=== PATIENT | female | born 1970 | race Caucasian/White ===

== ENCOUNTER 2018-06-14 01:27 | Inpatient (IN) | payer OTHER ==
[2018-06-14] MEDS ORDERED: SODIUM CHLORIDE 0.9% 1,000 ML IV STA (01:52)
[2018-06-14] MEDS ORDERED: LORazepam 2 MG/ML INJ IV STA ×2 (02:07→04:52)
[2018-06-14] MEDS ORDERED: SODIUM CHLORIDE 0.9% 1,000 ML IV ONE (02:07)
[2018-06-14 02:29] LABS: ALT 102 U/L (9-52); AST 90 U/L (14-36); Acetaminophen <10.0 ug/mL; Albumin 4.3 g/dL (3.5-5.0); Alkaline Phosphatase 51 U/L (38-126); Anion Gap 13 mmol/L; Blood Urea Nitrogen 9 mg/dL (7-17); Calcium 9.8 mg/dL (8.4-10.2); Carbon Dioxide 21 mmol/L (22-30); Chloride 102 mmol/L (98-107); Glucose 83 mg/dL (74-99); Potassium 3.8 mmol/L (3.5-5.1); Salicylate <1.0 mg/dL; Sodium 136 mmol/L (137-145); Total Bilirubin 0.4 mg/dL (0.2-1.3); Total Protein 7.4 g/dL (6.3-8.2)
--- NOTE | 2018-06-14 02:29 | ED ---
Overdose HPI - General Chief Complaint: Overdose Stated Complaint: Suicidal Time Seen by Provider: 06/14/18 01:40 Source: patient Mode of arrival: EMS Limitations: altered mental status - History of Present Illness Initial Comments: Patient's 48-year-old woman brought to be evaluated for reported overdose. She is not able to give history due to acute delirium. MD Complaint: intentional overdose -: unknown - Related Data Home Medications Medication Instructions Recorded Confirmed DULoxetine HCL [Cymbalta] 60 mg PO BID 06/14/18 06/14/18 Hydrochlorothiazide 25 mg PO DAILY 06/14/18 06/14/18 Allergies Allergy/AdvReac Type Severity Reaction Status Date / Time No Known Allergies Allergy Verified 06/14/18 01:40 Review of Systems ROS Statement: Those systems with pertinent positive or pertinent negative responses have been documented in the HPI. ROS Other: All systems not noted in ROS Statement are negative. Limitations: ROS unobtainable due to patients medical condition (Acute delirium) Past Medical History Past Medical History: No Reported History History of Any Multi-Drug Resistant Organisms: None Reported Past Surgical History: No Surgical Hx Reported Past Psychological History: No Psychological Hx Reported Smoking Status: Current every day smoker Past Alcohol Use History: Occasional - Past Family History Mother Additional Family Medical History / Comment(s): Mother is obese Father Family Medical History: COPD Additional Family Medical History / Comment(s): Father of alcoholism. General Exam Limitations: altered mental status General appearance: alert, appears intoxicated Head exam: Present: atraumatic, normocephalic Eye exam: Present: EOMI. Absent: scleral icterus, conjunctival injection, periorbital swelling, periorbital tenderness Pupils: Present: miosis ENT exam: Present: mucous membranes dry Neck exam: Present: normal inspection, full ROM. Absent: tenderness, meningismus Respiratory exam: Present: normal lung sounds bilaterally. Absent: respiratory distress, wheezes, rales, rhonchi, stridor Cardiovascular Exam: Present: normal rhythm, tachycardia (Rate approximately 132 on exam), normal heart sounds. Absent: systolic murmur, diastolic murmur, rubs, gallop GI/Abdominal exam: Present: soft, hypoactive bowel sounds. Absent: distended, tenderness, guarding, rebound, mass, pulsatile mass, hernia Extremities exam: Present: normal inspection, normal capillary refill. Absent: pedal edema, calf tenderness Back exam: Present: normal inspection. Absent: CVA tenderness (R), CVA tenderness (L) Neurological exam: Present: altered. Absent: motor sensory deficit Skin exam: Present: warm, dry, intact, erythema. Absent: rash, cyanosis, diaphoretic, urticaria, vesicles, petechiae, pallor, mottled, abrasion Course Vital Signs 06/14/18 06/14/18 06/14/18 01:34 01:35 02:20 Temperature 99 F Pulse Rate 124 H 155 H Respiratory 24 26 H Rate Blood Pressure 120/109 119/70 O2 Sat by Pulse 95 96 95 Oximetry 06/14/18 06/14/18 06/14/18 02:40 03:10 03:30 Temperature Pulse Rate 142 H 112 H 106 H Respiratory 25 H 17 17 Rate Blood Pressure 140/92 81/55 81/55 O2 Sat by Pulse 95 Oximetry 06/14/18 06/14/18 06/14/18 04:00 04:30 05:00 Temperature Pulse Rate 101 H 130 H 112 H Respiratory 17 27 H 14 Rate Blood Pressure 91/50 79/46 111/77 O2 Sat by Pulse 94 L Oximetry 06/14/18 06/14/18 06/14/18 05:10 05:20 05:30 Temperature Pulse Rate 105 H 101 H 101 H Respiratory 17 16 16 Rate Blood Pressure 114/80 114/80 114/80 O2 Sat by Pulse Oximetry 06/14/18 06/14/18 06/14/18 05:40 05:50 06:00 Temperature Pulse Rate 102 H 99 97 Respiratory 16 15 16 Rate Blood Pressure 92/51 92/51 92/51 O2 Sat by Pulse Oximetry 06/14/18 06/14/18 06/14/18 06:10 06:20 06:30 Temperature Pulse Rate 96 95 93 Respiratory 16 15 16 Rate Blood Pressure 93/62 93/62 93/62 O2 Sat by Pulse Oximetry 06/14/18 06/14/18 06/14/18 06:40 06:50 06:51 Temperature Pulse Rate 94 96 95 Respiratory 15 16 16 Rate Blood Pressure 91/63 91/63 91/63 O2 Sat by Pulse 96 96 Oximetry 06/14/18 06/14/18 06/14/18 07:00 07:10 07:20 Temperature Pulse Rate 95 96 92 Respiratory 16 17 15 Rate Blood Pressure 91/63 108/70 108/70 O2 Sat by Pulse 96 97 97 Oximetry 06/14/18 06/14/18 06/14/18 07:30 07:40 07:50 Temperature Pulse Rate 105 H 94 91 Respiratory 22 17 14 Rate Blood Pressure 108/70 106/72 106/72 O2 Sat by Pulse 98 96 96 Oximetry 06/14/18 06/14/18 06/14/18 08:00 08:10 08:15 Temperature Pulse Rate 94 92 92 Respiratory 18 16 16 Rate Blood Pressure 106/72 100/74 100/74 O2 Sat by Pulse 97 96 96 Oximetry Medical Decision Making - Lab Data Result diagrams: 06/15/18 05:54 06/15/18 05:54 Lab Results 06/14/18 06/14/18 06/14/18 Range/Units 02:00 02:00 05:10 WBC 10.2 (3.8-10.6) k/uL RBC 4.77 (3.80-5.40) m/uL Hgb 14.0 (11.4-16.0) gm/dL Hct 42.9 (34.0-46.0) % MCV 90.0 (80.0-100.0) fL MCH 29.3 (25.0-35.0) pg MCHC 32.6 (31.0-37.0) g/dL RDW 12.8 (11.5-15.5) % Plt Count 190 (150-450) k/uL Neutrophils % 52 % Lymphocytes % 38 % Monocytes % 4 % Eosinophils % 4 % Basophils % 0 % Neutrophils # 5.4 (1.3-7.7) k/uL Lymphocytes # 3.8 (1.0-4.8) k/uL Monocytes # 0.4 (0-1.0) k/uL Eosinophils # 0.4 (0-0.7) k/uL Basophils # 0.0 (0-0.2) k/uL Sodium 136 L (137-145) mmol/L Potassium 3.8 (3.5-5.1) mmol/L Chloride 102 (98-107) mmol/L Carbon Dioxide 21 L (22-30) mmol/L Anion Gap 13 mmol/L BUN 9 (7-17) mg/dL Creatinine 0.70 (0.52-1.04) mg/dL Est GFR (CKD-EPI)AfAm >90 (>60 ml/min/1.73 sqM) Est GFR (CKD-EPI)NonAf >90 (>60 ml/min/1.73 sqM) Glucose 83 (74-99) mg/dL Calcium 9.8 (8.4-10.2) mg/dL Total Bilirubin 0.4 (0.2-1.3) mg/dL AST 90 H (14-36) U/L ALT 102 H (9-52) U/L Alkaline Phosphatase 51 (38-126) U/L Total Protein 7.4 (6.3-8.2) g/dL Albumin 4.3 (3.5-5.0) g/dL Urine Color Urine Appearance (Clear) Urine pH (5.0-8.0) Ur Specific [place] (1.001-1.035) Urine Protein (Negative) Urine Glucose (UA) (Negative) Urine Ketones (Negative) Urine Blood (Negative) Urine Nitrite (Negative) Urine Bilirubin (Negative) Urine Urobilinogen (<2.0) mg/dL Ur Leukocyte Esterase (Negative) Urine HCG, Qual (Not Detectd) Salicylates <1.0 mg/dL Urine Opiates Screen Not Detected (NotDetected) Ur Oxycodone Screen Not Detected (NotDetected) Urine Methadone Screen Not Detected (NotDetected) Ur Propoxyphene Screen Not Detected (NotDetected) Acetaminophen <10.0 ug/mL Ur Barbiturates Screen Not Detected (NotDetected) U Tricyclic Antidepress Not Detected (NotDetected) Ur Phencyclidine Scrn Not Detected (NotDetected) Ur Amphetamines Screen Not Detected (NotDetected) U Methamphetamines Scrn Not Detected (NotDetected) U Benzodiazepines Scrn Detected H (NotDetected) Urine Cocaine Screen Not Detected (NotDetected) U Marijuana (THC) Screen Not Detected (NotDetected) Serum Alcohol 196 mg/dL 06/14/18 06/14/18 Range/Units 05:10 05:10 WBC (3.8-10.6) k/uL RBC (3.80-5.40) m/uL Hgb (11.4-16.0) gm/dL Hct (34.0-46.0) % MCV (80.0-100.0) fL MCH (25.0-35.0) pg MCHC (31.0-37.0) g/dL RDW (11.5-15.5) % Plt Count (150-450) k/uL Neutrophils % % Lymphocytes % % Monocytes % % Eosinophils % % Basophils % % Neutrophils # (1.3-7.7) k/uL Lymphocytes # (1.0-4.8) k/uL Monocytes # (0-1.0) k/uL Eosinophils # (0-0.7) k/uL Basophils # (0-0.2) k/uL Sodium (137-145) mmol/L Potassium (3.5-5.1) mmol/L Chloride (98-107) mmol/L Carbon Dioxide (22-30) mmol/L Anion Gap mmol/L BUN (7-17) mg/dL Creatinine (0.52-1.04) mg/dL Est GFR (CKD-EPI)AfAm (>60 ml/min/1.73 sqM) Est GFR (CKD-EPI)NonAf (>60 ml/min/1.73 sqM) Glucose (74-99) mg/dL Calcium (8.4-10.2) mg/dL Total Bilirubin (0.2-1.3) mg/dL AST (14-36) U/L ALT (9-52) U/L Alkaline Phosphatase (38-126) U/L Total Protein (6.3-8.2) g/dL Albumin (3.5-5.0) g/dL Urine Color Light Yellow Urine Appearance Clear (Clear) Urine pH 6.0 (5.0-8.0) Ur Specific [place] 1.005 (1.001-1.035) Urine Protein Negative (Negative) Urine Glucose (UA) Negative (Negative) Urine Ketones Negative (Negative) Urine Blood Negative (Negative) Urine Nitrite Negative (Negative) Urine Bilirubin Negative (Negative) Urine Urobilinogen <2.0 (<2.0) mg/dL Ur Leukocyte Esterase Negative (Negative) Urine HCG, Qual Not Detected (Not Detectd) Salicylates mg/dL Urine Opiates Screen (NotDetected) Ur Oxycodone Screen (NotDetected) Urine Methadone Screen (NotDetected) Ur Propoxyphene Screen (NotDetected) Acetaminophen ug/mL Ur Barbiturates Screen (NotDetected) U Tricyclic Antidepress (NotDetected) Ur Phencyclidine Scrn (NotDetected) Ur Amphetamines Screen (NotDetected) U Methamphetamines Scrn (NotDetected) U Benzodiazepines Scrn (NotDetected) Urine Cocaine Screen (NotDetected) U Marijuana (THC) Screen (NotDetected) Serum Alcohol mg/dL Critical Care Time Critical Care Time: Yes (35 minutes) Disposition Clinical Impression: Drug overdose, intentional, Suicide attempt, Alcohol abuse Disposition: ADMITTED IP TO THIS [facility] Condition: Fair
[2018-06-14 02:31] LABS: Basophils % (A) 0 %; Eosinophils # (A) 0.4 k/uL (0-0.7); Eosinophils % (A) 4 %; HCT 42.9 % (34.0-46.0); Lymphocytes # (A) 3.8 k/uL (1.0-4.8); Lymphocytes % (A) 38 %; MCH 29.3 pg (25.0-35.0); MCHC 32.6 g/dL (31.0-37.0); Mean Platelet Volume 7.6; Monocytes # (A) 0.4 k/uL (0-1.0); Monocytes % (A) 4 %; Neutrophils # (A) 5.4 k/uL (1.3-7.7); Neutrophils % (A) 52 %; Platelet Count 190 k/uL (150-450); RBC 4.77 m/uL (3.80-5.40); RDW 12.8 % (11.5-15.5); WBC 10.2 k/uL (3.8-10.6)
[2018-06-14 02:42] LABS: Alcohol 196 mg/dL
[2018-06-14 06:15] LABS: Amphetamine Screen,Urine Not Detected (NotDetected); Barbiturate Screen,Urine Not Detected (NotDetected); Benzodiazepines Screen,Urine Detected (NotDetected); Cocaine Screen,Urine Not Detected (NotDetected); Methadone Screen, Urine Not Detected (NotDetected); Opiate Screen,Urine Not Detected (NotDetected); Oxycodone Screen, Urine Not Detected (NotDetected); Phencyclidine Screen,Urine Not Detected (NotDetected); Tricyclic Antidepressant,Urine Not Detected (NotDetected); Urn Cannabinoid Scrn Not Detected (NotDetected)
[2018-06-14] MEDS ORDERED: ACETAMINOPHEN TAB 325 MG TAB PO PRN (06:40)
[2018-06-14] MEDS ORDERED: NALOXONE 0.4 MG/ML 1 ML VIAL IV PRN (06:40)
[2018-06-14] MEDS ORDERED: LORazepam 2 MG/ML INJ IV PRN ×4 (06:40→07:49)
[2018-06-14] MEDS ORDERED: SODIUM CHLORIDE 0.9% 1,000 ML IV SCH (06:45)
[2018-06-14 06:54] LABS: Appearance,Urine Clear (Clear); Bilirubin,Urine Negative (Negative); Blood,Urine Negative (Negative); Color,Urine Light Yellow; Glucose,Urine (UA) Negative (Negative); Ketones,Urine Negative (Negative); Leukocyte Esterase,Urine Negative (Negative); Nitrite,Urine Negative (Negative); Protein,Urine Negative (Negative); Specific Gravity,Urine 1.005 (1.001-1.035); Urobilinogen,Urine <2.0 mg/dL (<2.0)
--- NOTE | 2018-06-14 07:28 | P.HPIM ---
History of Present Illness H&P Date: 06/14/18 Chief Complaint: Drug overdose Patient is a 48-year-old female with no significant past medical history who history cannot be obtained from patient's somnolent at the time of my history taking. Per RN who was admitted bedside patient was brought via EMS on was awake and alert at the time of arrival to the emergency room. However she was agitated and required Ativan and then became sleepy on hypotensive. Upon arrival patient was noted to be tachycardic with heart rates in the 140s but she was normotensive at that time. Patient's sister later called the emergency room and stated that her sister stated she wanted to commit suicide this is believed to be a suicide attempt. Patient received IV hydration Ativan was stabilized in the emergency room and then admitted for further workup and management Review of Systems Unable to obtain ROS unobtainable: due to mental status Past Medical History Past Medical History: No Reported History History of Any Multi-Drug Resistant Organisms: None Reported Past Surgical History: No Surgical Hx Reported Past Psychological History: No Psychological Hx Reported Smoking Status: Current every day smoker Past Alcohol Use History: Occasional Medications and Allergies Allergies Allergy/AdvReac Type Severity Reaction Status Date / Time No Known Allergies Allergy Verified 06/14/18 01:40 Physical Exam Vitals: Vital Signs Temp Pulse Resp BP Pulse Ox 06/14/18 06:51 95 16 91/63 96 06/14/18 05:00 112 H 14 111/77 06/14/18 04:30 130 H 27 H 79/46 06/14/18 04:00 101 H 17 91/50 94 L 06/14/18 03:30 106 H 17 81/55 06/14/18 03:10 112 H 17 81/55 95 06/14/18 02:40 142 H 25 H 140/92 06/14/18 02:20 155 H 26 H 119/70 95 06/14/18 01:35 96 06/14/18 01:34 99 F 124 H 24 120/109 95 Intake and Output 06/13/18 06/14/18 06/14/18 22:59 06:59 14:59 Other: Weight 54.431 kg Sleepy not oriented response to sternal rub - EENT Eyes: PERRLA Ears: bilateral: normal - Respiratory Respiratory: bilateral: diminished - Cardiovascular Tachycardic - Gastrointestinal General gastrointestinal: normal bowel sounds, soft - Integumentary Integumentary: flushed, normal turgor - Neurologic Muscles extremities symmetrically - Musculoskeletal Unable to assess - Psychiatric Not oriented Results CBC & Chem 7: 06/14/18 02:00 06/14/18 02:00 Labs: Abnormal Lab Results - Last 24 Hours (Table) 06/14/18 06/14/18 Range/Units 02:00 05:10 Sodium 136 L (137-145) mmol/L Carbon Dioxide 21 L (22-30) mmol/L AST 90 H (14-36) U/L ALT 102 H (9-52) U/L U Benzodiazepines Scrn Detected H (NotDetected) Comments: EKG reveals reviewed by me with sinus tachycardia and nonspecific ST changes Assessment and Plan (1) Drug overdose, intentional Narrative/Plan: Patient with overdose of multiple drugs including Benadryl possible alcohol is tachycardic on arrival we'll continue IV hydration and repeat EKG Current Visit: Yes Status: Acute Code(s): T50.902A - POISONING BY UNSP DRUG/ MEDS/BIOL SUBST, SELF-HARM, INIT SNOMED Code(s): 66487499 (2) Alcohol abuse Narrative/Plan: Please see well protocol and monitor for evidence of withdrawal Current Visit: Yes Status: Acute Code(s): F10.10 - ALCOHOL ABUSE, UNCOMPLICATED SNOMED Code(s): 03098727 (3) Transaminitis Narrative/Plan: Dishes, level was negative, this is likely secondary to her alcohol use versus 5 level we'll trend undetermined needs further workup Current Visit: Yes Status: Acute Code(s): R74.0 - NONSPEC ELEV OF LEVELS OF TRANSAMNS & LACTIC ACID DEHYDRGNSE SNOMED Code(s): 636715535 (4) Suicide attempt Narrative/Plan: Consult psychiatry to determine if needs inpatient management Current Visit: Yes Status: Acute Code(s): T14.91XA - SUICIDE ATTEMPT, INITIAL ENCOUNTER SNOMED Code(s): 92862936 Plan: Anticipated patient need graded next day she is focal
[2018-06-14] MEDS ORDERED: THIAMINE 100 MG/ML 2 ML VIAL IM STA (07:49)
[2018-06-14 08:07] LABS: Basophils % (A) 0 %; Eosinophils # (A) 0.2 k/uL (0-0.7); Eosinophils % (A) 2 %; HCT 39.3 % (34.0-46.0); Lymphocytes # (A) 1.5 k/uL (1.0-4.8); Lymphocytes % (A) 18 %; MCH 30.5 pg (25.0-35.0); MCHC 33.1 g/dL (31.0-37.0); MCV 91.9 fL (80.0-100.0); Mean Platelet Volume 7.8; Monocytes # (A) 0.3 k/uL (0-1.0); Monocytes % (A) 3 %; Neutrophils # (A) 6.3 k/uL (1.3-7.7); Neutrophils % (A) 75 %; Platelet Count 160 k/uL (150-450); RBC 4.28 m/uL (3.80-5.40); WBC 8.3 k/uL (3.8-10.6)
[2018-06-14 08:26] LABS: Anion Gap 11 mmol/L; Blood Urea Nitrogen 10 mg/dL (7-17); Calcium 8.4 mg/dL (8.4-10.2); Carbon Dioxide 18 mmol/L (22-30); Chloride 110 mmol/L (98-107); Glucose 81 mg/dL (74-99); Magnesium 1.4 mg/dL (1.6-2.3); Phosphorus 4.9 mg/dL (2.5-4.5); Potassium 3.6 mmol/L (3.5-5.1); Sodium 139 mmol/L (137-145)
[2018-06-14] MEDS ORDERED: Magnesium Replacement Protocol 1 EACH MISC MISCELLANE PRN (08:57)
[2018-06-14] MEDS: DEXTROSE 5%-0.45% NACL 1,000 ML IV SCH ×3 (09:20→22:45)
[2018-06-14] MEDS: MAGNESIUM SULFATE-D5W PMX 1 GM in DEXTROSE/WATER 1 100ML.BAG IVPB SCH ×3 (09:25→11:58)
--- NOTE | 2018-06-14 09:44 | P.PN ---
Subjective Progress Note Date: 06/14/18 Principal diagnosis: Suicidal ideation Patient was seen and examined this morning. She is awake and alert. She is only oriented to herself. She appeared confused and was not sure why she is in the hospital. She denies any suicidal thoughts. She denies that she took any extra Benadryl prior to coming to the hospital. She also told me that she was not drinking alcohol prior to this presentation. She appeared confused. Sitter at bedside. Objective - Vital Signs Vital signs: Vital Signs Temp 99 F 06/14/18 01:34 Pulse 89 06/14/18 09:01 Resp 18 06/14/18 09:01 BP 99/66 06/14/18 09:01 Pulse Ox 97 06/14/18 09:01 Intake & Output 06/13/18 06/14/18 06/14/18 18:59 06:59 18:59 Weight 54.431 kg - Exam General: The patient is awake and alert, in no distress Eye: there is normal conjunctiva bilaterally. Neck: The neck is supple, there is no JVD. Cardiovascular: Normal S1-S2, no S3-S4, no murmurs. Respiratory: Lungs clear to auscultation bilaterally Gastrointestinal: Abdomen is soft, nontender Musculoskeletal: There is no pedal edema. Neurological:. Speech is normal. Skin: Skin is warm and dry - Labs CBC & Chem 7: 06/14/18 07:26 06/14/18 07:26 Labs: Abnormal Lab Results - Last 24 Hours (Table) 06/14/18 06/14/18 06/14/18 Range/Units 02:00 05:10 07:26 Sodium 136 L (137-145) mmol/L Chloride 110 H (98-107) mmol/L Carbon Dioxide 21 L 18 L (22-30) mmol/L Phosphorus 4.9 H (2.5-4.5) mg/dL Magnesium 1.4 L (1.6-2.3) mg/dL AST 90 H (14-36) U/L ALT 102 H (9-52) U/L U Benzodiazepines Scrn Detected H (NotDetected) Assessment and Plan Assessment: 1. Reported Benadryl overdose, patient denies taking any extra Benadryl. Unfortunately it is not clear to me what treatment patient received in the emergency room as the ER physician's note is not informative at all. Patient appears stable right now. We will continue aggressive IV fluid hydration. I would put her on telemetry monitoring. 2. Alcohol intoxication 3. Major depressive disorder 4. Alcohol induced hepatitis 5. Electrolyte derangement and hypomagnesemia Today, I reviewed her medication list and lab work results. Continue aggressive IV fluid hydration. Vitamins and electrolytes replacement. Psychiatry consulted. Continue suicidal precaution. Sitter at bedside. Repeat Work ordered for the morning. Patient will eventually need inpatient psych admission when medically cleared.
[2018-06-14] MEDS: MULTIVITAMINS, THERA 1 EACH TAB PO SCH (11:58)
[2018-06-14 12:57] LABS: Hemoglobin A1C 5.6 % (4.0-6.0)
[2018-06-14 14:35] VITALS: BMI 18.8
[2018-06-14] MEDS: THIAMINE 100 MG TAB PO SCH (17:36)
[2018-06-15 06:36] LABS: Basophils % (A) 0 %; Eosinophils # (A) 0.3 k/uL (0-0.7); Eosinophils % (A) 5 %; HCT 37.5 % (34.0-46.0); HGB 12.6 gm/dL (11.4-16.0); Lymphocytes # (A) 1.7 k/uL (1.0-4.8); Lymphocytes % (A) 32 %; MCH 30.9 pg (25.0-35.0); MCHC 33.6 g/dL (31.0-37.0); Mean Platelet Volume 8.3; Monocytes # (A) 0.2 k/uL (0-1.0); Monocytes % (A) 4 %; Neutrophils # (A) 3.1 k/uL (1.3-7.7); Neutrophils % (A) 57 %; Platelet Count 137 k/uL (150-450); RBC 4.08 m/uL (3.80-5.40); RDW 12.9 % (11.5-15.5); WBC 5.4 k/uL (3.8-10.6)
[2018-06-15 06:48] LABS: Anion Gap 5 mmol/L; Blood Urea Nitrogen 5 mg/dL (7-17); Calcium 8.3 mg/dL (8.4-10.2); Carbon Dioxide 24 mmol/L (22-30); Chloride 110 mmol/L (98-107); Glucose 133 mg/dL (74-99); Magnesium 1.8 mg/dL (1.6-2.3); Phosphorus 3.2 mg/dL (2.5-4.5); Potassium 3.2 mmol/L (3.5-5.1); Sodium 139 mmol/L (137-145)
[2018-06-15] MEDS ORDERED: POTASSIUM CHLORIDE ER 20 MEQ TAB.ER PO STA ×2 (08:10→09:09)
[2018-06-15] MEDS: DEXTROSE 5%-0.45% NACL 1,000 ML IV SCH ×2 (09:15→12:16)
--- NOTE | 2018-06-15 10:10 | P.PN ---
Progress Note - Text Progress Note Date: 06/15/18 Patient seen and examined at bedside. Admits that she has been drinking again, increased stress and anxiety at home. Self medicating with alcohol. Took pills in an attempt to harm herself. Feeling overwhelmed and helpless. Medically stable for discharge. Awaiting psych evaluation. Formal discharge summary or note once assessed by psych.
[2018-06-15] MEDS ORDERED: NICOTINE 21MG/24HR PATCH TRANSDERM SCH (10:15)
[2018-06-15 11:43] VITALS: PULSE 84
--- NOTE | 2018-06-15 11:48 | P.CN ---
Psychiatric Consult - . Consult date: 06/15/18 Consult:: 06/14/18 13:25 overdose and suicidal Assessment and Plan Assessment: Patient is a 48-year-old female with no significant past medical history who history cannot be obtained from patient's somnolent at the time of my history taking. Per RN who was admitted bedside patient was brought via EMS on was awake and alert at the time of arrival to the emergency room. However she was agitated and required Ativan and then became sleepy on hypotensive. Upon arrival patient was noted to be tachycardic with heart rates in the 140s but she was normotensive at that time. Patient's sister later called the emergency room and stated that her sister stated she wanted to commit suicide this is believed to be a suicide attempt. She denies suicidal or homicidal ideation. Patient received IV hydration Ativan was stabilized in the emergency room and then admitted for further workup and management Past Medical History Past Medical History: No Reported History History of Any Multi-Drug Resistant Organisms: None Reported Past Surgical History: No Surgical Hx Reported Past Psychological History: No Psychological Hx Reported Smoking Status: Current every day smoker Past Alcohol Use History: Occasional Mental Status Examination - General Appearance: [well groomed, disheveled, casual, appears younger than stated age] Speech/Language: [spontaneous, rapid Attitude/Behavior: [cooperative Mood: [ depressed 3/10, anxious] Affect: [full range Orientation: [time, person, place situation] Thought Content: [wnl Risk Factors: [she is not suicidal (ideations, plan), and/or Homicidal ( ideations, plan), other] Perception: [wnl Thought Processes: [goal-oriented Concentration/Attention Span: [wnl] [Per observation and interview with the patient] Recent Memory: [wnl] 3 out of 3 in 3 minutes] Remote Memory: [wnl] [past events, as related history] Intelligence: [ average] [based on history, based on vocabulary, syntax, grammar , and content] Judgement: [good] [per patient's behavior/history of present illness] Insight: [good] [understanding severity of illness/history of present illness] Psychiatric diagnoses:alcohol use disorder-early recovery; MDD stable-recurrent Psychiatric recommendations:restart psych meds, dc sitter and able to be dischaarged when medically stable Thank you for the consult Gavin Venegas D.O. PhD attending psychiatrist Brionna Hodges (1) Drug overdose, intentional Current Visit: Yes Status: Acute Code(s): T50.902A - POISONING BY UNSP DRUG/ MEDS/BIOL SUBST, SELF-HARM, INIT SNOMED Code(s): 79039734 (2) Suicide attempt Current Visit: Yes Status: Acute Code(s): T14.91XA - SUICIDE ATTEMPT, INITIAL ENCOUNTER SNOMED Code(s): 98949408 Time with Patient: Less than 30
[2018-06-15] MEDS: MULTIVITAMINS, THERA 1 EACH TAB PO SCH (12:11)
[2018-06-15] MEDS: THIAMINE 100 MG TAB PO SCH ×2 (12:11→15:38)
[2018-06-15 16:03] VITALS: BP 106/53; RESP 18; TEMP 98.3
--- NOTE | 2018-06-15 19:15 | P.DS ---
Providers Date of admission: 06/14/18 06:42 Expected date of discharge: 06/15/18 Attending physician: Yara Michel MD Consults: 06/14/18 04:47 Consult Physician Routine Consulting Provider: Gavin Venegas Consult Reason/Comments: Overdose Do you want consulting provider notified?: Yes Primary care physician: Stated None Hospital Course: Discharge Diagnosis: Alcohol intoxication with overdose Suicidal ideation Major depressive disorder Alcohol-induced hepatitis Tobacco abuse Hypokalemia hypomagnesemia Hospital Course: Patient is a 48-year-old female with a history of alcohol abuse, anxiety, and tobacco abuse who presented to the ER as an overdose with altered mentation. In the ER she underwent an extensive evaluation. She is on have slightly elevated liver enzymes. In the ER she became agitated and then received Ativan and became sleepy and hypotensive. She was admitted for further evaluation of her altered mentation. She was admitted and placed in suicide precautions. She was seen by psychiatry who recommended the patient resuming her Cymbalta and being discharged home. They did not see a need for inpatient psych hospitalization. Her liver enzymes [place] did during her hospitalization. She did have some hypomagnesemia and hypokalemia that was aggressively replaced. She has been here and is living she typically from [facility]. She will will be going home with her AA sponsor she wants to maintain sobriety at this point in time. We recommended restarting her home hydrochlorothiazide and Cymbalta. She will follow up with her primary care provider in 1-2 days. She was seen by social work. We encouraged abstaining from alcohol and seeking psychiatric counseling for her anxiety so that she no longer self-medicating with alcohol. Patient seen and examined at bedside. No chest pain, shortness breath, nausea, vomiting, or diarrhea. Feeling very anxious. Worried about maintaining sobriety, getting kicked out of her apartment, and multiple other social stressors. We spent a significant amount of time bringing stranding solutions. She will be going home with her sponsor. I offered to have her meet with case management which she was interested in. Vital signs reviewed and stable. General: non toxic, no distress, appears at stated age Derm: warm, dry Head: atraumatic, normocephalic, symmetric Eyes: EOMI, no lid lag, anicteric sclera Mouth: no lip lesion, mucus membranes moist Cardiovascular: S1S2 reg, no murmur, positive posterior tibial pulse bilateral, Lungs: CTA bilateral, no rhonchi, no rales , no accessory muscle use Abdominal: soft, nontender to palpation, no guarding, no appreciable organomegaly Ext: no gross muscle atrophy, no edema, no contractures Neuro: CN II-XI grossly intact, no focal neuro deficits Psych: Alert, oriented, appropriate affect A total of 35 minutes of time were spent preparing this complex discharge summary . Patient Condition at Discharge: Fair Plan - Discharge Summary Discharge Rx Participant: No New Discharge Prescriptions: Continue Hydrochlorothiazide 25 mg PO DAILY DULoxetine HCL [Cymbalta] 60 mg PO BID Discharge Medication List DULoxetine HCL [Cymbalta] 60 mg PO BID 06/14/18 [History] Hydrochlorothiazide 25 mg PO DAILY 06/14/18 [History] Follow up Appointment(s)/Referral(s): None,Stated [Primary Care Provider] - 1-2 days (Please call to schedule an appointment with a primary care doctor) Activity/Diet/Wound Care/Special Instructions: Activity as tolerated Regular diet Attempt to abstain from alcohol. Resources given to you from [facility] worker Discharge Disposition: HOME SELF-CARE
== END 2018-06-15 17:57 | disposition home or self-care (01) | DRG 918 ==
LOC: EC 01:27 → 3SCARD 06:42
PROVIDERS: ADMIT Internal Medicine; ATTEND Internal Medicine
DX: T45.0X2A Poisoning by antiallergic and antiemetic drugs, intentional self-harm, initial encounter (principal); E83.42 Hypomagnesemia; E87.6 Hypokalemia; F10.129 Alcohol abuse with intoxication, unspecified; F17.200 Nicotine dependence, unspecified, uncomplicated; F32.9 Major depressive disorder, single episode, unspecified; F41.9 Anxiety disorder, unspecified; K70.10 Alcoholic hepatitis without ascites; T50.902A Poisoning by unspecified drugs, medicaments and biological substances, intentional self-harm, initial encounter; Z82.5 Family history of asthma and other chronic lower respiratory diseases
CPT/HCPCS: 36415; 80048; 80053; 80306; 80320; 81003; 81025; 82247; 83036; 83520; 83735; 84100; 84450; 84460; 85025; 93005; 96361; 96374; 99285

== ENCOUNTER 2018-11-11 18:30 | Emergency (ER) | payer OTHER ==
[2018-11-11] MEDS ORDERED: SODIUM CHLORIDE 0.9% 1,000 ML IV STA (18:56)
[2018-11-11] MEDS ORDERED: SODIUM CHLORIDE 0.9% 1,000 ML with MVI, ADULT NO.4 WITH VIT K 10 ML, THIAMINE 100 MG, F... IV ONE ×4 (18:56)
--- NOTE | 2018-11-11 19:21 | ED ---
General Adult HPI - General Source: patient Mode of arrival: ambulatory Limitations: no limitations <Geni Marinelli - Last Filed: 11/12/18 05:00> <Clarita Corona - Last Filed: 11/12/18 06:39> - General Chief complaint: Psychiatric Symptoms Stated complaint: Mental health,ETOH Time Seen by Provider: 11/11/18 18:38 - History of Present Illness Initial comments: 48-year-old female patient presents to the emergency department today with alcohol intoxication. Patient states that she has been on a drinking binge for the last 4 days. Patient states that she does have a history of alcohol abuse and had previously been sober for 5 months until 4 days ago. Patient states that generally when she begins to drink she is unable to stop. States that she often becomes suicidal and is concerned that this may happen. She denies an active suicidal plan. Patient states she feels sick and feels that she must k eep drinking to feel normal. She denies any specific physical concerns at this time. She denies any street drug use. Denies any homicidal ideation or hallucinations. Patient denies any recent rash, fever, chills, shortness breath, chest pain, abdominal pain, nausea, vomiting, diarrhea, constipation, back pain, numbness, tingling, dizziness, weakness, hematuria, dysuria, urinary urgency, urinary frequency, headache, visual changes, or any other complaints. Patient states that she has attempted suicide in the past, states she was on life support for this. (Geni Marinelli) - Related Data Home Medications Medication Instructions Recorded Confirmed DULoxetine HCL [Cymbalta] 60 mg PO BID 06/14/18 11/11/18 Hydrochlorothiazide 25 mg PO DAILY 06/14/18 11/11/18 Multivitamins, Thera [Multivitamin 1 tab PO DAILY 11/11/18 11/11/18 (formulary)] Allergies Allergy/AdvReac Type Severity Reaction Status Date / Time No Known Allergies Allergy Verified 11/11/18 18:43 Review of Systems ROS Other: All systems not noted in ROS Statement are negative. <Geni Marinelli - Last Filed: 11/12/18 05:00> ROS Other: All systems not noted in ROS Statement are negative. <Clarita Corona - Last Filed: 11/12/18 06:39> ROS Statement: Those systems with pertinent positive or pertinent negative responses have been documented in the HPI. Past Medical History Past Medical History: No Reported History Additional Past Medical History / Comment(s): Alcoholism, alcohol withdrawal with seizures/insomnia/loss of appetite, arthritis bilateral hips, kidney stones History of Any Multi-Drug Resistant Organisms: None Reported Past Surgical History: No Surgical Hx Reported Additional Past Surgical History / Comment(s): Lithotripsy, ESS, bilateral breast implants. Past Anesthesia/Blood Transfusion Reactions: No Reported Reaction Past Psychological History: Anxiety, Depression Smoking Status: Current every day smoker Past Alcohol Use History: Daily Past Drug Use History: None Reported - Past Family History Mother Additional Family Medical History / Comment(s): Mother is obese Father Family Medical History: COPD Additional Family Medical History / Comment(s): Father of alcoholism. <Geni Marinelli M - Last Filed: 11/12/18 05:00> General Exam Limitations: no limitations General appearance: alert, in no apparent distress, other (This is a well- developed, well-nourished adult female patient in no acute distress. Vital signs upon presentation are temperature 98.2F, pulse 107, respirations 20, blood pressure 125/55, pulse ox 96% on room air.) Eye exam: Present: normal appearance, PERRL, EOMI. Absent: scleral icterus, conjunctival injection, periorbital swelling ENT exam: Present: normal exam, normal oropharynx, mucous membranes moist Respiratory exam: Present: normal lung sounds bilaterally. Absent: respiratory distress, wheezes, rales, rhonchi, stridor Cardiovascular Exam: Present: regular rate, normal rhythm, normal heart sounds. Absent: systolic murmur, diastolic murmur, rubs, gallop, clicks GI/Abdominal exam: Present: soft, normal bowel sounds. Absent: distended, tenderness, guarding, rebound, rigid Neurological exam: Present: alert, oriented X3, CN II-XII intact Psychiatric exam: Present: normal affect, normal mood Skin exam: Present: warm, dry, intact, normal color. Absent: rash <Geni Marinelli M - Last Filed: 11/12/18 05:00> Course Vital Signs 11/11/18 11/11/18 11/11/18 18:35 20:05 22:00 Temperature 98.2 F 98.7 F Pulse Rate 107 H 104 H Respiratory 20 16 18 Rate Blood Pressure 125/55 105/65 O2 Sat by Pulse 96 98 Oximetry 11/12/18 05:13 Temperature Pulse Rate 88 Respiratory 18 Rate Blood Pressure 127/87 O2 Sat by Pulse 98 Oximetry Medical Decision Making - Lab Data Result diagrams: 11/11/18 19:48 11/11/18 19:48 <Geni Marinelli - Last Filed: 11/12/18 05:00> - Lab Data Result diagrams: 11/11/18 19:48 11/11/18 19:48 <Clarita Corona - Last Filed: 11/12/18 06:39> - Medical Decision Making 48-year-old female patient with history of chronic alcohol abuse presents to the emergency department today with suicidal ideation. Patient's alcohol level was 276 upon arrival. Patient will be sober at 0545 and she will then be evaluated by emergency psychiatric services. Care is handed over to my attending Dr. Corona at 0500. (Geni Marinelli) - Lab Data Lab Results 11/11/18 11/11/18 11/11/18 Range/Units 19:16 19:16 19:48 WBC 13.4 H (3.8-10.6) k/uL RBC 5.01 (3.80-5.40) m/uL Hgb 14.8 (11.4-16.0) gm/dL Hct 42.6 (34.0-46.0) % MCV 84.9 (80.0-100.0) fL MCH 29.6 (25.0-35.0) pg MCHC 34.8 (31.0-37.0) g/dL RDW 13.5 (11.5-15.5) % Plt Count 325 (150-450) k/uL Neutrophils % 68 % Lymphocytes % 25 % Monocytes % 4 % Eosinophils % 1 % Basophils % 1 % Neutrophils # 9.1 H (1.3-7.7) k/uL Lymphocytes # 3.3 (1.0-4.8) k/uL Monocytes # 0.6 (0-1.0) k/uL Eosinophils # 0.2 (0-0.7) k/uL Basophils # 0.1 (0-0.2) k/uL Sodium (137-145) mmol/L Potassium (3.5-5.1) mmol/L Chloride (98-107) mmol/L Carbon Dioxide (22-30) mmol/L Anion Gap mmol/L BUN (7-17) mg/dL Creatinine (0.52-1.04) mg/dL Est GFR (CKD-EPI)AfAm (>60 ml/min/1.73 sqM) Est GFR (CKD-EPI)NonAf (>60 ml/min/1.73 sqM) Glucose (74-99) mg/dL POC Glucose (mg/dL) (75-99) mg/dL POC Glu Computer Technician ID Calcium (8.4-10.2) mg/dL Phosphorus (2.5-4.5) mg/dL Magnesium (1.6-2.3) mg/dL Total Bilirubin (0.2-1.3) mg/dL AST (14-36) U/L ALT (9-52) U/L Alkaline Phosphatase (38-126) U/L Total Protein (6.3-8.2) g/dL Albumin (3.5-5.0) g/dL Urine HCG, Qual Not Detected (Not Detectd) Urine Opiates Screen Not Detected (NotDetected) Ur Oxycodone Screen Not Detected (NotDetected) Urine Methadone Screen Not Detected (NotDetected) Ur Propoxyphene Screen Not Detected (NotDetected) Ur Barbiturates Screen Not Detected (NotDetected) U Tricyclic Antidepress Not Detected (NotDetected) Ur Phencyclidine Scrn Not Detected (NotDetected) Ur Amphetamines Screen Not Detected (NotDetected) U Methamphetamines Scrn Not Detected (NotDetected) U Benzodiazepines Scrn Not Detected (NotDetected) Urine Cocaine Screen Not Detected (NotDetected) U Marijuana (THC) Screen Not Detected (NotDetected) Serum Alcohol mg/dL 11/11/18 11/11/18 Range/Units 19:48 19:55 WBC (3.8-10.6) k/uL RBC (3.80-5.40) m/uL Hgb (11.4-16.0) gm/dL Hct (34.0-46.0) % MCV (80.0-100.0) fL MCH (25.0-35.0) pg MCHC (31.0-37.0) g/dL RDW (11.5-15.5) % Plt Count (150-450) k/uL Neutrophils % % Lymphocytes % % Monocytes % % Eosinophils % % Basophils % % Neutrophils # (1.3-7.7) k/uL Lymphocytes # (1.0-4.8) k/uL Monocytes # (0-1.0) k/uL Eosinophils # (0-0.7) k/uL Basophils # (0-0.2) k/uL Sodium 147 H (137-145) mmol/L Potassium 3.7 (3.5-5.1) mmol/L Chloride 111 H (98-107) mmol/L Carbon Dioxide 21 L (22-30) mmol/L Anion Gap 15 mmol/L BUN 12 (7-17) mg/dL Creatinine 0.65 (0.52-1.04) mg/dL Est GFR (CKD-EPI)AfAm >90 (>60 ml/min/1.73 sqM) Est GFR (CKD-EPI)NonAf >90 (>60 ml/min/1.73 sqM) Glucose 96 (74-99) mg/dL POC Glucose (mg/dL) 135 H (75-99) mg/dL POC Glu Computer Technician ID Sergey Huff Calcium 9.1 (8.4-10.2) mg/dL Phosphorus 3.8 (2.5-4.5) mg/dL Magnesium 1.6 (1.6-2.3) mg/dL Total Bilirubin 0.4 (0.2-1.3) mg/dL AST 68 H (14-36) U/L ALT 52 (9-52) U/L Alkaline Phosphatase 73 (38-126) U/L Total Protein 7.2 (6.3-8.2) g/dL Albumin 4.4 (3.5-5.0) g/dL Urine HCG, Qual (Not Detectd) Urine Opiates Screen (NotDetected) Ur Oxycodone Screen (NotDetected) Urine Methadone Screen (NotDetected) Ur Propoxyphene Screen (NotDetected) Ur Barbiturates Screen (NotDetected) U Tricyclic Antidepress (NotDetected) Ur Phencyclidine Scrn (NotDetected) Ur Amphetamines Screen (NotDetected) U Methamphetamines Scrn (NotDetected) U Benzodiazepines Scrn (NotDetected) Urine Cocaine Screen (NotDetected) U Marijuana (THC) Screen (NotDetected) Serum Alcohol 276 H* mg/dL Disposition <Geni Marinelli M - Last Filed: 11/12/18 05:00> Is patient prescribed a controlled substance at d/c from ED?: No <Clarita Corona P - Last Filed: 11/12/18 06:39> Clinical Impression: Depression, Alcohol abuse Disposition: HOME SELF-CARE Condition: Stable Instructions (If sedation given, give patient instructions): Depression (DC) Referrals: None,Stated [Primary Care Provider] - 1-2 days
[2018-11-11 19:55] LABS: Amphetamine Screen,Urine Not Detected (NotDetected); Barbiturate Screen,Urine Not Detected (NotDetected); Benzodiazepines Screen,Urine Not Detected (NotDetected); Cocaine Screen,Urine Not Detected (NotDetected); Methadone Screen, Urine Not Detected (NotDetected); Opiate Screen,Urine Not Detected (NotDetected); Oxycodone Screen, Urine Not Detected (NotDetected); Phencyclidine Screen,Urine Not Detected (NotDetected); Tricyclic Antidepressant,Urine Not Detected (NotDetected); Urn Cannabinoid Scrn Not Detected (NotDetected)
[2018-11-11 20:00] LABS: Basophils # (A) 0.1 k/uL (0-0.2); Basophils % (A) 1 %; Eosinophils # (A) 0.2 k/uL (0-0.7); Eosinophils % (A) 1 %; HCT 42.6 % (34.0-46.0); HGB 14.8 gm/dL (11.4-16.0); Lymphocytes # (A) 3.3 k/uL (1.0-4.8); Lymphocytes % (A) 25 %; MCH 29.6 pg (25.0-35.0); MCHC 34.8 g/dL (31.0-37.0); MCV 84.9 fL (80.0-100.0); Mean Platelet Volume 7.3; Monocytes # (A) 0.6 k/uL (0-1.0); Monocytes % (A) 4 %; Neutrophils # (A) 9.1 k/uL (1.3-7.7); Neutrophils % (A) 68 %; Platelet Count 325 k/uL (150-450); RBC 5.01 m/uL (3.80-5.40); RDW 13.5 % (11.5-15.5); WBC 13.4 k/uL (3.8-10.6)
[2018-11-11 20:07] LABS: Glucose,Whole Blood 135 mg/dL (75-99)
[2018-11-11 20:09] LABS: ALT 52 U/L (9-52); AST 68 U/L (14-36); Albumin 4.4 g/dL (3.5-5.0); Alkaline Phosphatase 73 U/L (38-126); Anion Gap 15 mmol/L; Blood Urea Nitrogen 12 mg/dL (7-17); Calcium 9.1 mg/dL (8.4-10.2); Carbon Dioxide 21 mmol/L (22-30); Chloride 111 mmol/L (98-107); Glucose 96 mg/dL (74-99); Magnesium 1.6 mg/dL (1.6-2.3); Phosphorus 3.8 mg/dL (2.5-4.5); Potassium 3.7 mmol/L (3.5-5.1); Sodium 147 mmol/L (137-145); Total Bilirubin 0.4 mg/dL (0.2-1.3); Total Protein 7.2 g/dL (6.3-8.2)
[2018-11-11 20:18] LABS: Alcohol 276 mg/dL
[2018-11-11] MEDS ORDERED: LORazepam 2 MG/ML INJ IV PRN ×2 (22:32)
[2018-11-11 22:43] VITALS: RESP 18; TEMP 98.7
[2018-11-11] MEDS: LORazepam 2 MG/ML INJ IV PRN (22:44)
[2018-11-12] MEDS: LORazepam 2 MG/ML INJ IV PRN (03:24)
[2018-11-12 08:24] VITALS: BP 150/75; PULSE 103
== END 2018-11-12 08:22 | disposition home or self-care (01) ==
LOC: EC 18:30
DX: F32.9 Major depressive disorder, single episode, unspecified (principal); F10.10 Alcohol abuse, uncomplicated; R45.851 Suicidal ideations; F41.9 Anxiety disorder, unspecified; F17.200 Nicotine dependence, unspecified, uncomplicated; Z79.899 Other long term (current) drug therapy; Y90.8 Blood alcohol level of 240 mg/100 ml or more; Z91.5 Personal history of self-harm; Z81.1 Family history of alcohol abuse and dependence
CPT/HCPCS: 82075; 36415; 80053; 83735; 84100; 85025; 81025; 80306; 99285; 96365; 96366 ×10; 96375; 96376 ×2; G0480; J2060 ×2; J3411; 80320

== ENCOUNTER 2018-11-14 01:16 | Emergency (ER) | payer OTHER ==
[2018-11-14] MEDS ORDERED: SODIUM CHLORIDE 0.9% 1,000 ML IV STA (01:35)
[2018-11-14] MEDS ORDERED: LORazepam 2 MG/ML INJ IV STA (01:36)
--- NOTE | 2018-11-14 02:25 | ED ---
Psych HPI - General Source: patient, police, EMS Mode of arrival: EMS - History of Present Illness MD Complaint: suicidal ideation, feels depressed -: days(s) (2) Associated Psychiatric Symptoms: depression, suicidal ideation History of same: Yes Improves With: none Worsens With: alcohol Context: recent alcohol abuse Associated Symptoms: denies other symptoms Treatments Prior to Arrival: none If Self Harm: has acted on plan, intentional overdose <Nehemiah Siddiqi - Last Filed: 11/14/18 07:26> <Beau Infante - Last Filed: 11/14/18 14:13> - General Chief Complaint: Psychiatric Symptoms Stated Complaint: Suicidal Time Seen by Provider: 11/14/18 01:18 - History of Present Illness Initial Comments: 's patient is a 48-year-old woman who presents with complaint that she had taken an overdose of her Seroquel tonight. The patient states that she has history of alcohol abuse, and that 2 days ago she relapsed and started drinking. She states that she became also upset about this that tonight she took an overdose of a number of her Seroquel. She states that this was close to 2 hours ago. The patient just before my arrival in the room did have vomiting with a large n umber of pills in it. She is denying other symptoms than the nausea and vomiting. (Nehemiah Siddiqi) - Related Data Home Medications Medication Instructions Recorded Confirmed DULoxetine HCL [Cymbalta] 60 mg PO BID 06/14/18 11/14/18 Hydrochlorothiazide 25 mg PO DAILY 06/14/18 11/14/18 Multivitamins, Thera [Multivitamin 1 tab PO DAILY 11/11/18 11/14/18 (formulary)] Allergies Allergy/AdvReac Type Severity Reaction Status Date / Time No Known Allergies Allergy Verified 11/14/18 13:40 Review of Systems ROS Other: All systems not noted in ROS Statement are negative. Constitutional: Denies: fever, chills Eyes: Denies: vision change Respiratory: Denies: cough, dyspnea Cardiovascular: Denies: chest pain, syncope Gastrointestinal: Reports: nausea, vomiting. Denies: abdominal pain, diarrhea, hematemesis Genitourinary: Denies: dysuria Musculoskeletal: Denies: back pain Skin: Denies: rash Neurological: Denies: headache, weakness, numbness Psychiatric: Reports: depression, suicidal thoughts. Denies: auditory hallucinations, visual hallucinations, homicidal thoughts <Nehemiah Siddiqi - Last Filed: 11/14/18 07:26> ROS Other: All systems not noted in ROS Statement are negative. <Beau Infante - Last Filed: 11/14/18 14:13> ROS Statement: Those systems with pertinent positive or pertinent negative responses have been documented in the HPI. Past Medical History Past Medical History: No Reported History Additional Past Medical History / Comment(s): Alcoholism, alcohol withdrawal with seizures/insomnia/loss of appetite, arthritis bilateral hips, kidney stones History of Any Multi-Drug Resistant Organisms: None Reported Past Surgical History: No Surgical Hx Reported Additional Past Surgical History / Comment(s): Lithotripsy, ESS, bilateral breast implants. Past Anesthesia/Blood Transfusion Reactions: No Reported Reaction Past Psychological History: Anxiety, Depression Smoking Status: Current every day smoker Past Alcohol Use History: Daily Past Drug Use History: None Reported - Past Family History Mother Additional Family Medical History / Comment(s): Mother is obese Father Family Medical History: COPD Additional Family Medical History / Comment(s): Father of alcoholism. <Nehemiah Siddiqi - Last Filed: 11/14/18 07:26> General Exam General appearance: alert, in no apparent distress Head exam: Present: atraumatic, normocephalic Eye exam: Present: normal appearance. Absent: scleral icterus, conjunctival injection ENT exam: Present: mucous membranes dry Neck exam: Present: normal inspection Respiratory exam: Present: normal lung sounds bilaterally. Absent: respiratory distress, wheezes, rales, rhonchi, stridor Cardiovascular Exam: Present: regular rate, normal rhythm, normal heart sounds. Absent: systolic murmur, diastolic murmur, rubs, gallop GI/Abdominal exam: Present: soft. Absent: distended, tenderness, guarding, rebound, mass Extremities exam: Present: normal inspection, normal capillary refill. Absent: pedal edema, calf tenderness Back exam: Present: normal inspection. Absent: CVA tenderness (R), CVA tenderness (L) Neurological exam: Present: alert Psychiatric exam: Present: depressed, anxious, suicidal ideation. Absent: flat affect, homicidal ideation Skin exam: Present: warm, dry, intact, normal color. Absent: rash <Nehemiah Siddiqi - Last Filed: 11/14/18 07:26> Course Vital Signs 11/14/18 11/14/18 11/14/18 01:31 06:48 08:10 Temperature 97.7 F Pulse Rate 89 98 Respiratory 18 16 Rate Blood Pressure 123/73 108/74 O2 Sat by Pulse 98 98 88 L Oximetry 11/14/18 11/14/18 08:14 11:26 Temperature Pulse Rate 94 101 H Respiratory 18 18 Rate Blood Pressure 114/78 131/87 O2 Sat by Pulse 94 L 94 L Oximetry Medical Decision Making - Lab Data Result diagrams: 11/14/18 01:36 11/14/18 01:36 - EKG Data -: EKG Interpreted by Mo EKG shows normal: sinus rhythm, axis (Normal), intervals (Normal), QRS complexes (Normal), ST-T waves (Normal) Rate: normal (Rate 89 bpm) Interpretation: normal EKG <Nehemiah Siddiqi - Last Filed: 11/14/18 07:26> - Lab Data Result diagrams: 11/14/18 01:36 11/14/18 01:36 <Beau Infante - Last Filed: 11/14/18 14:13> - Medical Decision Making EPS evaluated the patient and admitted the patient for depression and suicidal ideations. (Beau Infante) - Lab Data Lab Results 11/14/18 11/14/18 11/14/18 Range/Units 01:36 01:36 01:50 WBC 11.1 H (3.8-10.6) k/uL RBC 4.64 (3.80-5.40) m/uL Hgb 13.9 (11.4-16.0) gm/dL Hct 38.8 (34.0-46.0) % MCV 83.6 (80.0-100.0) fL MCH 29.9 (25.0-35.0) pg MCHC 35.8 (31.0-37.0) g/dL RDW 13.4 (11.5-15.5) % Plt Count 300 (150-450) k/uL Neutrophils % 56 % Lymphocytes % 36 % Monocytes % 4 % Eosinophils % 2 % Basophils % 1 % Neutrophils # 6.2 (1.3-7.7) k/uL Lymphocytes # 4.0 (1.0-4.8) k/uL Monocytes # 0.5 (0-1.0) k/uL Eosinophils # 0.2 (0-0.7) k/uL Basophils # 0.1 (0-0.2) k/uL Sodium 144 (137-145) mmol/L Potassium 3.9 (3.5-5.1) mmol/L Chloride 110 H (98-107) mmol/L Carbon Dioxide 21 L (22-30) mmol/L Anion Gap 13 mmol/L BUN 11 (7-17) mg/dL Creatinine 0.52 (0.52-1.04) mg/dL Est GFR (CKD-EPI)AfAm >90 (>60 ml/min/1.73 sqM) Est GFR (CKD-EPI)NonAf >90 (>60 ml/min/1.73 sqM) Glucose 81 (74-99) mg/dL Calcium 9.4 (8.4-10.2) mg/dL Total Bilirubin 0.4 (0.2-1.3) mg/dL AST 50 H (14-36) U/L ALT 46 (9-52) U/L Alkaline Phosphatase 74 (38-126) U/L Total Protein 7.0 (6.3-8.2) g/dL Albumin 4.3 (3.5-5.0) g/dL Urine HCG, Qual Not Detected (Not Detectd) Salicylates <1.0 mg/dL Urine Opiates Screen (NotDetected) Ur Oxycodone Screen (NotDetected) Urine Methadone Screen (NotDetected) Ur Propoxyphene Screen (NotDetected) Acetaminophen <10.0 ug/mL Ur Barbiturates Screen (NotDetected) U Tricyclic Antidepress (NotDetected) Ur Phencyclidine Scrn (NotDetected) Ur Amphetamines Screen (NotDetected) U Methamphetamines Scrn (NotDetected) U Benzodiazepines Scrn (NotDetected) Urine Cocaine Screen (NotDetected) U Marijuana (THC) Screen (NotDetected) Serum Alcohol 262 H* mg/dL 11/14/18 Range/Units 01:51 WBC (3.8-10.6) k/uL RBC (3.80-5.40) m/uL Hgb (11.4-16.0) gm/dL Hct (34.0-46.0) % MCV (80.0-100.0) fL MCH (25.0-35.0) pg MCHC (31.0-37.0) g/dL RDW (11.5-15.5) % Plt Count (150-450) k/uL Neutrophils % % Lymphocytes % % Monocytes % % Eosinophils % % Basophils % % Neutrophils # (1.3-7.7) k/uL Lymphocytes # (1.0-4.8) k/uL Monocytes # (0-1.0) k/uL Eosinophils # (0-0.7) k/uL Basophils # (0-0.2) k/uL Sodium (137-145) mmol/L Potassium (3.5-5.1) mmol/L Chloride (98-107) mmol/L Carbon Dioxide (22-30) mmol/L Anion Gap mmol/L BUN (7-17) mg/dL Creatinine (0.52-1.04) mg/dL Est GFR (CKD-EPI)AfAm (>60 ml/min/1.73 sqM) Est GFR (CKD-EPI)NonAf (>60 ml/min/1.73 sqM) Glucose (74-99) mg/dL Calcium (8.4-10.2) mg/dL Total Bilirubin (0.2-1.3) mg/dL AST (14-36) U/L ALT (9-52) U/L Alkaline Phosphatase (38-126) U/L Total Protein (6.3-8.2) g/dL Albumin (3.5-5.0) g/dL Urine HCG, Qual (Not Detectd) Salicylates mg/dL Urine Opiates Screen Not Detected (NotDetected) Ur Oxycodone Screen Not Detected (NotDetected) Urine Methadone Screen Not Detected (NotDetected) Ur Propoxyphene Screen Not Detected (NotDetected) Acetaminophen ug/mL Ur Barbiturates Screen Not Detected (NotDetected) U Tricyclic Antidepress Not Detected (NotDetected) Ur Phencyclidine Scrn Not Detected (NotDetected) Ur Amphetamines Screen Not Detected (NotDetected) U Methamphetamines Scrn Not Detected (NotDetected) U Benzodiazepines Scrn Not Detected (NotDetected) Urine Cocaine Screen Not Detected (NotDetected) U Marijuana (THC) Screen Not Detected (NotDetected) Serum Alcohol mg/dL Disposition <Nehemiah Siddiqi - Last Filed: 11/14/18 07:26> Time of Disposition: 14:13 <Beau Infante - Last Filed: 11/14/18 14:13> Clinical Impression: Suicidal ideation, Depression, Alcohol abuse Disposition: ADMITTED IP TO THIS HOSP Referrals: None,Stated [Primary Care Provider] - 1-2 days
[2018-11-14 02:41] LABS: Amphetamine Screen,Urine Not Detected (NotDetected); Barbiturate Screen,Urine Not Detected (NotDetected); Benzodiazepines Screen,Urine Not Detected (NotDetected); Cocaine Screen,Urine Not Detected (NotDetected); Methadone Screen, Urine Not Detected (NotDetected); Opiate Screen,Urine Not Detected (NotDetected); Oxycodone Screen, Urine Not Detected (NotDetected); Phencyclidine Screen,Urine Not Detected (NotDetected); Tricyclic Antidepressant,Urine Not Detected (NotDetected); Urn Cannabinoid Scrn Not Detected (NotDetected)
[2018-11-14 02:43] LABS: ALT 46 U/L (9-52); AST 50 U/L (14-36); Acetaminophen <10.0 ug/mL; Albumin 4.3 g/dL (3.5-5.0); Alkaline Phosphatase 74 U/L (38-126); Anion Gap 13 mmol/L; Blood Urea Nitrogen 11 mg/dL (7-17); Calcium 9.4 mg/dL (8.4-10.2); Carbon Dioxide 21 mmol/L (22-30); Chloride 110 mmol/L (98-107); Glucose 81 mg/dL (74-99); Potassium 3.9 mmol/L (3.5-5.1); Salicylate <1.0 mg/dL; Sodium 144 mmol/L (137-145); Total Bilirubin 0.4 mg/dL (0.2-1.3)
[2018-11-14 02:49] LABS: Basophils # (A) 0.1 k/uL (0-0.2); Basophils % (A) 1 %; Eosinophils # (A) 0.2 k/uL (0-0.7); Eosinophils % (A) 2 %; HCT 38.8 % (34.0-46.0); HGB 13.9 gm/dL (11.4-16.0); Lymphocytes % (A) 36 %; MCH 29.9 pg (25.0-35.0); MCHC 35.8 g/dL (31.0-37.0); MCV 83.6 fL (80.0-100.0); Mean Platelet Volume 7.8; Monocytes # (A) 0.5 k/uL (0-1.0); Monocytes % (A) 4 %; Neutrophils # (A) 6.2 k/uL (1.3-7.7); Neutrophils % (A) 56 %; Platelet Count 300 k/uL (150-450); RBC 4.64 m/uL (3.80-5.40); RDW 13.4 % (11.5-15.5); WBC 11.1 k/uL (3.8-10.6)
[2018-11-14 03:10] LABS: Alcohol 262 mg/dL
[2018-11-14] MEDS ORDERED: LORazepam 2 MG/ML INJ IV PRN ×2 (03:20)
[2018-11-14] MEDS: LORazepam 2 MG/ML INJ IV PRN ×4 (11:33→21:44)
[2018-11-14] MEDS ORDERED: NICOTINE 21MG/24HR PATCH TRANSDERM STA (21:40)
[2018-11-15] MEDS: LORazepam 2 MG/ML INJ IV PRN ×2 (01:26→09:43)
[2018-11-15] MEDS ORDERED: HYDROCHLOROTHIAZIDE 25 MG TAB PO SCH (11:15)
--- NOTE | 2018-11-15 15:04 | ED ---
Medical Decision Making - Medical Decision Making The patient was to be evaluated and admitted for inpatient treatment of depression and suicidal ideation. No is available in this facility and patient is to be transferred to an outside facility. I did fill out a clinical certification. Patient is still. - Lab Data Result diagrams: 11/14/18 01:36 11/14/18 01:36 Lab Results 11/14/18 11/14/18 11/14/18 Range/Units 01:36 01:36 01:50 WBC 11.1 H (3.8-10.6) k/uL RBC 4.64 (3.80-5.40) m/uL Hgb 13.9 (11.4-16.0) gm/dL Hct 38.8 (34.0-46.0) % MCV 83.6 (80.0-100.0) fL MCH 29.9 (25.0-35.0) pg MCHC 35.8 (31.0-37.0) g/dL RDW 13.4 (11.5-15.5) % Plt Count 300 (150-450) k/uL Neutrophils % 56 % Lymphocytes % 36 % Monocytes % 4 % Eosinophils % 2 % Basophils % 1 % Neutrophils # 6.2 (1.3-7.7) k/uL Lymphocytes # 4.0 (1.0-4.8) k/uL Monocytes # 0.5 (0-1.0) k/uL Eosinophils # 0.2 (0-0.7) k/uL Basophils # 0.1 (0-0.2) k/uL Sodium 144 (137-145) mmol/L Potassium 3.9 (3.5-5.1) mmol/L Chloride 110 H (98-107) mmol/L Carbon Dioxide 21 L (22-30) mmol/L Anion Gap 13 mmol/L BUN 11 (7-17) mg/dL Creatinine 0.52 (0.52-1.04) mg/dL Est GFR (CKD-EPI)AfAm >90 (>60 ml/min/1.73 sqM) Est GFR (CKD-EPI)NonAf >90 (>60 ml/min/1.73 sqM) Glucose 81 (74-99) mg/dL Calcium 9.4 (8.4-10.2) mg/dL Total Bilirubin 0.4 (0.2-1.3) mg/dL AST 50 H (14-36) U/L ALT 46 (9-52) U/L Alkaline Phosphatase 74 (38-126) U/L Total Protein 7.0 (6.3-8.2) g/dL Albumin 4.3 (3.5-5.0) g/dL Urine HCG, Qual Not Detected (Not Detectd) Salicylates <1.0 mg/dL Urine Opiates Screen (NotDetected) Ur Oxycodone Screen (NotDetected) Urine Methadone Screen (NotDetected) Ur Propoxyphene Screen (NotDetected) Acetaminophen <10.0 ug/mL Ur Barbiturates Screen (NotDetected) U Tricyclic Antidepress (NotDetected) Ur Phencyclidine Scrn (NotDetected) Ur Amphetamines Screen (NotDetected) U Methamphetamines Scrn (NotDetected) U Benzodiazepines Scrn (NotDetected) Urine Cocaine Screen (NotDetected) U Marijuana (THC) Screen (NotDetected) Serum Alcohol 262 H* mg/dL 11/14/18 Range/Units 01:51 WBC (3.8-10.6) k/uL RBC (3.80-5.40) m/uL Hgb (11.4-16.0) gm/dL Hct (34.0-46.0) % MCV (80.0-100.0) fL MCH (25.0-35.0) pg MCHC (31.0-37.0) g/dL RDW (11.5-15.5) % Plt Count (150-450) k/uL Neutrophils % % Lymphocytes % % Monocytes % % Eosinophils % % Basophils % % Neutrophils # (1.3-7.7) k/uL Lymphocytes # (1.0-4.8) k/uL Monocytes # (0-1.0) k/uL Eosinophils # (0-0.7) k/uL Basophils # (0-0.2) k/uL Sodium (137-145) mmol/L Potassium (3.5-5.1) mmol/L Chloride (98-107) mmol/L Carbon Dioxide (22-30) mmol/L Anion Gap mmol/L BUN (7-17) mg/dL Creatinine (0.52-1.04) mg/dL Est GFR (CKD-EPI)AfAm (>60 ml/min/1.73 sqM) Est GFR (CKD-EPI)NonAf (>60 ml/min/1.73 sqM) Glucose (74-99) mg/dL Calcium (8.4-10.2) mg/dL Total Bilirubin (0.2-1.3) mg/dL AST (14-36) U/L ALT (9-52) U/L Alkaline Phosphatase (38-126) U/L Total Protein (6.3-8.2) g/dL Albumin (3.5-5.0) g/dL Urine HCG, Qual (Not Detectd) Salicylates mg/dL Urine Opiates Screen Not Detected (NotDetected) Ur Oxycodone Screen Not Detected (NotDetected) Urine Methadone Screen Not Detected (NotDetected) Ur Propoxyphene Screen Not Detected (NotDetected) Acetaminophen ug/mL Ur Barbiturates Screen Not Detected (NotDetected) U Tricyclic Antidepress Not Detected (NotDetected) Ur Phencyclidine Scrn Not Detected (NotDetected) Ur Amphetamines Screen Not Detected (NotDetected) U Methamphetamines Scrn Not Detected (NotDetected) U Benzodiazepines Scrn Not Detected (NotDetected) Urine Cocaine Screen Not Detected (NotDetected) U Marijuana (THC) Screen Not Detected (NotDetected) Serum Alcohol mg/dL Disposition Clinical Impression: Suicidal ideation, Depression, Alcohol abuse Disposition: TRANSFER TO PSYCH HOSP/UNIT Condition: Stable Referrals: None,Stated [Primary Care Provider] - 1-2 days
[2018-11-15] MEDS ORDERED: NICOTINE 21MG/24HR PATCH TRANSDERM STA (19:06)
[2018-11-15 19:46] VITALS: BP 109/77; PULSE 96; RESP 19; TEMP 97.6
== END 2018-11-15 20:05 ==
LOC: EC 01:16
DX: F10.10 Alcohol abuse, uncomplicated (principal); F32.9 Major depressive disorder, single episode, unspecified; R45.851 Suicidal ideations; F17.200 Nicotine dependence, unspecified, uncomplicated; F41.9 Anxiety disorder, unspecified; Z79.899 Other long term (current) drug therapy
CPT/HCPCS: 99285 ×2; 96374 ×2; 96376 ×2; 96361 ×7; 36415; 93005; 80053; 85025; 81025; 80306; 83520 ×2; G0480; S4990 ×2; J2060 ×2; 80320

== ENCOUNTER 2018-12-19 17:14 | Inpatient (IN) | payer OTHER ==
[2018-12-19] MEDS ORDERED: LORazepam 2 MG/ML INJ IV STA (17:31)
[2018-12-19] MEDS ORDERED: levETIRAcetam IV 1,000 MG in SALINE 1 100ML.BAG IVPB STA (17:31)
[2018-12-19] MEDS ORDERED: SODIUM CHLORIDE 0.9% 1,000 ML IV STA ×2 (17:31)
[2018-12-19] MEDS ORDERED: SODIUM CHLORIDE 0.9% 500 ML 500 ML IV STA (17:31)
[2018-12-19] MEDS ORDERED: THIAMINE 100 MG/ML 2 ML VIAL IM STA (17:32)
[2018-12-19] MEDS ORDERED: LORazepam 2 MG/ML INJ IV PRN ×2 (17:32)
--- NOTE | 2018-12-19 17:32 | ED ---
Seizure HPI - General Chief Complaint: Seizure Stated Complaint: Etoh Source: patient, RN notes reviewed, old records reviewed Mode of arrival: ambulatory Limitations: no limitations - History of Present Illness Initial Comments: This is a 48-year-old female the ER. Patient presents today for evaluation of seizure secondary to alcohol withdrawal. Patient's very emotional on exam, states that she is gynecological drinking she doesn't multiple episodes of quitting drinking but never can detox from her self and again does suffer from very DTs. No significant medical history, prior seizure history is from MD Complaint: seizure -: hour(s) Description of Episode: loss of consciousness, tonic-clonic movement -: second(s) Witnessed: no Trauma: No Seizure History: history of withdrawal seizures Place: home Possible Precipitating Event: none Associated Symptoms: denies other symptoms Treatments Prior to Arrival: none - Related Data Home Medications Medication Instructions Recorded Confirmed Gabapentin 600 mg PO TID 12/19/18 12/19/18 Allergies Allergy/AdvReac Type Severity Reaction Status Date / Time No Known Allergies Allergy Verified 12/19/18 18:43 Review of Systems ROS Statement: Those systems with pertinent positive or pertinent negative responses have been documented in the HPI. ROS Other: All systems not noted in ROS Statement are negative. Past Medical History Past Medical History: Seizure Disorder Additional Past Medical History / Comment(s): Alcoholism, alcohol withdrawal with seizures/insomnia/loss of appetite, arthritis bilateral hips, kidney stones History of Any Multi-Drug Resistant Organisms: None Reported Past Surgical History: No Surgical Hx Reported Additional Past Surgical History / Comment(s): Lithotripsy, ESS, bilateral breast implants. Past Anesthesia/Blood Transfusion Reactions: No Reported Reaction Past Psychological History: Anxiety, Depression Smoking Status: Current every day smoker Past Alcohol Use History: Abuse, Daily, Heavy Past Drug Use History: None Reported - Past Family History Mother Additional Family Medical History / Comment(s): Mother is obese Father Family Medical History: COPD Additional Family Medical History / Comment(s): Father of alcoholism. General Exam Limitations: no limitations General appearance: alert, appears intoxicated, in distress Head exam: Present: atraumatic, normocephalic, normal inspection Eye exam: Present: normal appearance, PERRL, EOMI. Absent: scleral icterus, conjunctival injection, periorbital swelling ENT exam: Present: normal exam, mucous membranes moist Neck exam: Present: normal inspection. Absent: tenderness, meningismus, lymphadenopathy Respiratory exam: Present: normal lung sounds bilaterally. Absent: respiratory distress, wheezes, rales, rhonchi, stridor Cardiovascular Exam: Present: normal rhythm, tachycardia, normal heart sounds. Absent: systolic murmur, diastolic murmur, rubs, gallop, clicks GI/Abdominal exam: Present: soft, normal bowel sounds. Absent: distended, tenderness, guarding, rebound, rigid Extremities exam: Present: normal inspection, full ROM, normal capillary refill. Absent: tenderness, pedal edema, joint swelling, calf tenderness Back exam: Present: normal inspection Neurological exam: Present: alert, oriented X3, CN II-XII intact Psychiatric exam: Present: normal affect, normal mood Skin exam: Present: warm, dry, intact, normal color. Absent: rash Course Vital Signs 12/19/18 17:20 Temperature 98.7 F Pulse Rate 124 H Respiratory 22 Rate Blood Pressure 162/91 O2 Sat by Pulse 95 Oximetry - Reevaluation(s) Reevaluation #1: 12/19/18 18:45 Medical record is reviewed Reevaluation #2: 12/19/18 18:45 Patient with no seizures here in the ER Medical Decision Making - Medical Decision Making 40 female the ER for evaluation, patient resents today for evaluation of seizure seizure secondary to alcohol withdrawal. Patient be admitted for monitoring of pending DVTs as she does have recurrent seizures, patient did admit to drinking today prior to that she only drank 3 times in the last week and with most recently 3 days ago, she did 2 seizures today and drank because she is afraid to have another seizure, patient be admitted for evaluation and impending - Lab Data Result diagrams: 12/19/18 17:57 12/19/18 17:57 Lab Results 12/19/18 12/19/18 Range/Units 17:57 17:57 WBC 6.1 (3.8-10.6) k/uL RBC 4.88 (3.80-5.40) m/uL Hgb 14.2 (11.4-16.0) gm/dL Hct 42.8 (34.0-46.0) % MCV 87.8 (80.0-100.0) fL MCH 29.2 (25.0-35.0) pg MCHC 33.2 (31.0-37.0) g/dL RDW 13.0 (11.5-15.5) % Plt Count 154 (150-450) k/uL Neutrophils % 53 % Lymphocytes % 37 % Monocytes % 5 % Eosinophils % 2 % Basophils % 1 % Neutrophils # 3.2 (1.3-7.7) k/uL Lymphocytes # 2.2 (1.0-4.8) k/uL Monocytes # 0.3 (0-1.0) k/uL Eosinophils # 0.1 (0-0.7) k/uL Basophils # 0.0 (0-0.2) k/uL Sodium 143 (137-145) mmol/L Potassium 3.9 (3.5-5.1) mmol/L Chloride 102 (98-107) mmol/L Carbon Dioxide 25 (22-30) mmol/L Anion Gap 16 mmol/L BUN 6 L (7-17) mg/dL Creatinine 0.59 (0.52-1.04) mg/dL Est GFR (CKD-EPI)AfAm >90 (>60 ml/min/1.73 sqM) Est GFR (CKD-EPI)NonAf >90 (>60 ml/min/1.73 sqM) Glucose 117 H (74-99) mg/dL Calcium 9.5 (8.4-10.2) mg/dL Phosphorus 3.4 (2.5-4.5) mg/dL Magnesium 1.5 L (1.6-2.3) mg/dL Total Bilirubin 0.4 (0.2-1.3) mg/dL AST 219 H (14-36) U/L ALT 159 H (9-52) U/L Alkaline Phosphatase 74 (38-126) U/L Total Protein 7.4 (6.3-8.2) g/dL Albumin 4.6 (3.5-5.0) g/dL Lipase 140 (23-300) U/L Salicylates <1.0 mg/dL Acetaminophen <10.0 ug/mL Serum Alcohol 299 H* mg/dL Disposition Clinical Impression: Alcohol abuse, Intractable seizure disorder, Delirium tremens Disposition: ADMITTED IP TO THIS HOSP Condition: Serious Is patient prescribed a controlled substance at d/c from ED?: No Referrals: None,Stated [Primary Care Provider] - 1-2 days
[2018-12-19 18:09] LABS: Basophils % (A) 1 %; Eosinophils # (A) 0.1 k/uL (0-0.7); Eosinophils % (A) 2 %; HCT 42.8 % (34.0-46.0); HGB 14.2 gm/dL (11.4-16.0); Lymphocytes # (A) 2.2 k/uL (1.0-4.8); Lymphocytes % (A) 37 %; MCH 29.2 pg (25.0-35.0); MCHC 33.2 g/dL (31.0-37.0); MCV 87.8 fL (80.0-100.0); Mean Platelet Volume 7.9; Monocytes # (A) 0.3 k/uL (0-1.0); Monocytes % (A) 5 %; Neutrophils # (A) 3.2 k/uL (1.3-7.7); Neutrophils % (A) 53 %; Platelet Count 154 k/uL (150-450); RBC 4.88 m/uL (3.80-5.40); WBC 6.1 k/uL (3.8-10.6)
[2018-12-19 18:18] LABS: ALT 159 U/L (9-52); AST 219 U/L (14-36); Acetaminophen <10.0 ug/mL; Albumin 4.6 g/dL (3.5-5.0); Alkaline Phosphatase 74 U/L (38-126); Anion Gap 16 mmol/L; Blood Urea Nitrogen 6 mg/dL (7-17); Calcium 9.5 mg/dL (8.4-10.2); Carbon Dioxide 25 mmol/L (22-30); Chloride 102 mmol/L (98-107); Glucose 117 mg/dL (74-99); Lipase 140 U/L (23-300); Magnesium 1.5 mg/dL (1.6-2.3); Phosphorus 3.4 mg/dL (2.5-4.5); Potassium 3.9 mmol/L (3.5-5.1); Salicylate <1.0 mg/dL; Sodium 143 mmol/L (137-145); Total Bilirubin 0.4 mg/dL (0.2-1.3); Total Protein 7.4 g/dL (6.3-8.2)
[2018-12-19 18:27] LABS: Alcohol 299 mg/dL
[2018-12-19 19:04] LABS: Appearance,Urine Clear (Clear); Bacteria,Urine Rare /hpf; Bilirubin,Urine Negative (Negative); Blood,Urine Negative (Negative); Color,Urine Light Yellow; Glucose,Urine (UA) Negative (Negative); Ketones,Urine Negative (Negative); Leukocyte Esterase,Urine Small (Negative); Mucus,Urine Rare /hpf; Nitrite,Urine Negative (Negative); PH, Urine 5.5 (5.0-8.0); Protein,Urine Negative (Negative); Specific Gravity,Urine 1.004 (1.001-1.035); Squamous Epithelial Cell,Urine 2 /hpf (0-4); Urobilinogen,Urine <2.0 mg/dL (<2.0); WBC,Urine 2 /hpf (0-5)
[2018-12-19 19:06] LABS: Amphetamine Screen,Urine Not Detected (NotDetected); Barbiturate Screen,Urine Not Detected (NotDetected); Benzodiazepines Screen,Urine Not Detected (NotDetected); Cocaine Screen,Urine Not Detected (NotDetected); Methadone Screen, Urine Not Detected (NotDetected); Opiate Screen,Urine Not Detected (NotDetected); Oxycodone Screen, Urine Not Detected (NotDetected); Phencyclidine Screen,Urine Not Detected (NotDetected); Tricyclic Antidepressant,Urine Not Detected (NotDetected); Urn Cannabinoid Scrn Not Detected (NotDetected)
[2018-12-19] MEDS: THIAMINE 100 MG TAB PO SCH ×2 (19:28)
[2018-12-19] MEDS: NICOTINE 21MG/24HR PATCH TRANSDERM SCH (21:20)
[2018-12-19] MEDS: GABAPENTIN 300 MG CAP PO SCH (21:20)
--- NOTE | 2018-12-19 21:25 | P.HPIM ---
History of Present Illness H&P Date: 12/19/18 Chief Complaint: Alcohol withdrawal seizures 48-year-old female with past medical history of depression, anxiety, alcohol abuse Patient reports that she's been drinking heavily for the past week and then decided to stop drinking after 3 days she had a seizure so she went back to drinking she came to the hospital today seeking help to quit alcohol. Patient reports history of withdrawal seizures multiple times in the past when she attempted to quit alcohol intake. She denies any suicidal or homicidal ideation at this time she reports that in the past she was taking Cymbalta for her depression but her psychiatrist switched her to Neurontin which was controlling her symptoms up until recently when she ran out of medications because her boyfriend took whenever she has left and she is requesting to be restarted on Neurontin. Patient is tearful and anxious. When I went into the room she was smoking and her ER room. However later she was apologizing for that behavior. Currently she denies any headache changes in her vision or hearing she denies any focal neurologic deficits in her extremities. She is ambulating without assistance. Again she denies any suicidal or homicidal ideation but she was interested and psychiatry evaluation. In the ER she was found to have low magnesium level and elevated alcohol level. Patient will be admitted for withdrawal seizures and for further management of alcohol withdrawals. Otherwise patient denies any fevers chills, chest pain trouble breathing, coughing nausea or vomiting. Denies Abdominal pain or GI bleeding. Review of Systems Pertinent positives as noted in HPI. All other systems were reviewed and are negative Past Medical History Additional Past Medical History / Comment(s): Alcoholism, alcohol withdrawal with seizures/insomnia/loss of appetite, arthritis bilateral hips, kidney stones History of Any Multi-Drug Resistant Organisms: None Reported Past Surgical History: No Surgical Hx Reported Additional Past Surgical History / Comment(s): Lithotripsy, ESS, bilateral breast implants. Past Anesthesia/Blood Transfusion Reactions: No Reported Reaction Past Psychological History: Anxiety, Depression Smoking Status: Current every day smoker Past Alcohol Use History: Abuse, Daily, Heavy Past Drug Use History: None Reported - Past Family History Mother Additional Family Medical History / Comment(s): Mother is obese Father Family Medical History: COPD Additional Family Medical History / Comment(s): Father of alcoholism. Medications and Allergies Home Medications Medication Instructions Recorded Confirmed Type Gabapentin 600 mg PO TID 12/19/18 12/19/18 History Allergies Allergy/AdvReac Type Severity Reaction Status Date / Time No Known Allergies Allergy Verified 12/19/18 18:43 Physical Exam Vitals: Vital Signs Temp Pulse Resp BP Pulse Ox 12/19/18 19:31 100 18 107/61 100 12/19/18 17:20 98.7 F 124 H 22 162/91 95 Intake and Output 12/19/18 12/19/18 12/19/18 06:59 14:59 22:59 Other: Weight 65.998 kg Constitutional: No acute distress, conversant, pleasant Eyes: Anicteric sclerae, moist conjunctiva, no lid-lag Pupils equal round reactive to light ENMT: NC/AT Oropharynx clear, no erythema, or exudates Neck: Supple, FROM, no masses, or JVD No carotid bruits No thyromegaly Lungs: Clear to auscultation Clear to percussion Normal respiratory effort, no accessory muscle use Cardiovascular: Heart regular in rate and rhythm, No murmurs, gallops, or rubs No peripheral edema Abdominal: Soft Nontender, no guarding, rebound or rigidity Abdomen moving with respiration Normoactive bowel sounds No hepatomegaly, No splenomegaly No palpable mass No abdominal wall hernia noted Skin: Normal temperature, tone, texture, turgor No induration No subcutaneous nodules No rash, lesions No ulcers Extremities: No digital cyanosis No clubbing Pedal pulses intact and symmetrical Radial pulses intact and symmetrical No calf tenderness Psychiatric: Alert and oriented to person, place and time Depressed affect, avoids eye contact Poor judgment Neuro Muscles Strength 5/5 in all 4 extremities Sensation to light touch grossly present throughout Cranial nerves II-XII grossly intact No focal sensory deficits Lymphatics: no palpable cervical or supraclavicular , or inguinal lymph no sawyer Results CBC & Chem 7: 12/19/18 17:57 12/19/18 17:57 Labs: Abnormal Lab Results - Last 24 Hours (Table) 12/19/18 12/19/18 Range/Units 17:57 18:40 BUN 6 L (7-17) mg/dL Glucose 117 H (74-99) mg/dL Magnesium 1.5 L (1.6-2.3) mg/dL AST 219 H (14-36) U/L ALT 159 H (9-52) U/L Ur Leukocyte Esterase Small H (Negative) Urine Bacteria Rare H (None) /hpf Urine Mucus Rare H (None) /hpf Serum Alcohol 299 H* mg/dL Assessment and Plan Assessment: 48-year-old female with history of anxiety depression and alcohol abuse. Patient admitted to inpatient with anticipated length of stay more than 48 hoursdue to alcohol withdrawal seizures. Patient admits to alcohol abuse off and on she's been drinking heavily for one week stopped for a few days and had a seizure. She also reports depression but denies any suicidal or homicidal ideations. Plan: Seizure secondary to alcohol withdrawal Moderate alcohol intoxication Alcohol abuse Seizure precautions Fall precautions Benzos per CIWA IV fluid hydration Thiamine, folic acid IV fluid hydration Tobacco smoking abuse Patient counseled to quit smoking Nicotine replacement therapy Hypomagnesemia Replace and follow up levels Alcoholic hepatitis Follow-up levels DVT prophylaxis heparin subcu 3 times a day Surrogate decision-maker: Patient AA sponsor CODE STATUS: Full code Discussed with: Patient, ER, RN Anticipated discharge: 48-[address]: Home A total of60 minutes was spent on the care of this complex patient more than 50% of the time was spent in counseling and care coordination.
[2018-12-19] MEDS ORDERED: MAGNESIUM SULFATE-D5W PMX 1 GM in DEXTROSE/WATER 1 100ML.BAG IVPB ONE (21:30)
[2018-12-19] MEDS: HEPARIN SODIUM,PORCINE 5,000 UNIT/ML 1 ML VIAL SQ SCH (23:19)
[2018-12-20 02:23] VITALS: BMI 22.8
[2018-12-20] MEDS: LORazepam 2 MG/ML INJ IV PRN ×4 (02:55→17:22)
[2018-12-20] MEDS: HEPARIN SODIUM,PORCINE 5,000 UNIT/ML 1 ML VIAL SQ SCH ×2 (08:07→17:20)
[2018-12-20] MEDS: FOLIC ACID 1 MG TAB PO SCH (08:08)
[2018-12-20] MEDS: GABAPENTIN 300 MG CAP PO SCH ×2 (08:08→17:19)
[2018-12-20] MEDS: THIAMINE 100 MG TAB PO SCH ×2 (08:08→19:43)
[2018-12-20] MEDS: PANTOPRAZOLE 40 MG TABLET PO SCH (08:08)
[2018-12-20] MEDS: NICOTINE 21MG/24HR PATCH TRANSDERM SCH (08:08)
[2018-12-20 08:42] LABS: Basophils % (A) 1 %; Eosinophils # (A) 0.2 k/uL (0-0.7); Eosinophils % (A) 3 %; HGB 12.1 gm/dL (11.4-16.0); Lymphocytes # (A) 1.6 k/uL (1.0-4.8); Lymphocytes % (A) 27 %; MCH 29.3 pg (25.0-35.0); MCHC 32.7 g/dL (31.0-37.0); MCV 89.7 fL (80.0-100.0); Mean Platelet Volume 8.4; Monocytes # (A) 0.2 k/uL (0-1.0); Monocytes % (A) 4 %; Neutrophils # (A) 3.9 k/uL (1.3-7.7); Neutrophils % (A) 65 %; Platelet Count 108 k/uL (150-450); RBC 4.13 m/uL (3.80-5.40); RDW 13.1 % (11.5-15.5); WBC 6.1 k/uL (3.8-10.6)
[2018-12-20 08:49] LABS: ALT 128 U/L (9-52); AST 135 U/L (14-36); Albumin 3.3 g/dL (3.5-5.0); Alkaline Phosphatase 58 U/L (38-126); Anion Gap 4 mmol/L; Blood Urea Nitrogen 7 mg/dL (7-17); Calcium 8.3 mg/dL (8.4-10.2); Carbon Dioxide 29 mmol/L (22-30); Chloride 104 mmol/L (98-107); Glucose 99 mg/dL (74-99); Potassium 3.8 mmol/L (3.5-5.1); Sodium 137 mmol/L (137-145); Total Bilirubin 0.9 mg/dL (0.2-1.3); Total Protein 5.6 g/dL (6.3-8.2)
--- NOTE | 2018-12-20 14:35 | P.CN ---
Psychiatric Consult - . Consult date: 12/20/18 Consult:: 12/20/18 14:26 Depression Assessment and Plan (1) Major depressive disorder Narrative/Plan: This is a 48-year-old female with past medical history of depression, anxiety, alcohol abuse Patient reports that she's been drinking heavily for the past week and then decided to stop drinking after 3 days she had a seizure so she went back to drinking she came to the hospital today seeking help to quit alcohol. Patient reports history of withdrawal seizures multiple times in the past when she attempted to quit alcohol intake. She denies any suicidal or homicidal ideation at this time she reports that in the past she was taking Cymbalta for her depression but her psychiatrist switched her to Neurontin which was controlling her symptoms up until recently when she ran out of medications because her boyfriend took whenever she has left and she is requesting to be restarted on Neurontin. Patient is tearful and anxious. When I went into the room she was smoking and her ER room. However later she was apologizing for that behavior. Past Medical History Additional Past Medical History / Comment(s): Alcoholism, alcohol withdrawal with seizures/insomnia/loss of appetite, arthritis bilateral hips, kidney stones History of Any Multi-Drug Resistant Organisms: None Reported Past Surgical History: No Surgical Hx Reported Additional Past Surgical History / Comment(s): Lithotripsy, ESS, bilateral breast implants. Past Anesthesia/Blood Transfusion Reactions: No Reported Reaction Past Psychological History: Anxiety, Depression Smoking Status: Current every day smoker Past Alcohol Use History: Abuse, Daily, Heavy Past Drug Use History: None Reported - Past Family History Mother Additional Family Medical History / Comment(s): Mother is obese Father Family Medical History: COPD Additional Family Medical History / Comment(s): Father of alcoholism. Medications and Allergies Home Medications Medication Instructions Recorded Confirmed Type Gabapentin 600 mg PO TID 12/19/18 12/19/18 History Allergies Allergy/AdvReac Type Severity Reaction Status Date / Time No Known Allergies Allergy Verified 12/19/18 18:43 Mental Status Examination - this 48-year-old female stated that she had been doing well and abstaining from alcohol and had a relationship with a man that went bad and she started drinking again. She knows she needs to get back on her outpatient treatment plan for sobriety and treatment for depression. She stated "I just need to stay away from dating those men" General Appearance: [well groomed, disheveled, casual, appears younger than stated age] Speech/Language: [spontaneous, rapid Attitude/Behavior: [cooperative Mood: [ depressed 10/16, anxious] Affect: [full range Orientation: [time, person, place situation] Thought Content: [wnl Risk Factors: [she is not suicidal (ideations, plan), and/or Homicidal (ideations, plan), other] Perception: [wnl Thought Processes: [goal-oriented Concentration/Attention Span: [wnl] [Per observation and interview with the patient] Recent Memory: [wnl] 3 out of 3 in 3 minutes] Remote Memory: [wnl] [past events, as related history] Intelligence: [ average] [based on history, based on vocabulary, syntax, grammar, and content] Judgement: [good] [per patient's behavior/history of present illness] Insight: [good] [understanding severity of illness/history of present illness] Psychiatric diagnoses:alcohol use disorder-early recovery; MDD stable-recurrent Psychiatric recommendations:restart psych meds and wrote an order for Zoloft 50 mg by mouth daily at bedtime, dc sitter and able to be discharged when medically stable. She is not a candidate for [address] [place] [address]. She should follow up with her outpatient therapist and primary care doctor for further therapy and monitoring of her medication. Thank you for the consult Gavin Venegas D.O. PhD attending psychiatrist Brionna Hodges Current Visit: Yes Status: Acute Priority: Medium Code(s): F32.9 - MAJOR DEPRESSIVE DISORDER, SINGLE EPISODE, UNSPECIFIED SNOMED Code(s): 667337915 (2) Alcohol abuse Current Visit: Yes Status: Acute Priority: Medium Code(s): F10.10 - ALCOHOL ABUSE, UNCOMPLICATED SNOMED Code(s): 78623130 Time with Patient: Less than 30
--- NOTE | 2018-12-20 20:48 | P.PN ---
Subjective Progress Note Date: 12/20/18 (Delayed charting at 8 AM) Principal diagnosis: Alcohol withdrawal with seizure Patient is a 48-year-old female past medical history of depression, seizure secondary to alcohol withdrawal, arthritis, and anxiety who presented to the ER after a seizure. Patient had initially stopped drinking for 3 days and then had a seizure so she drank some alcohol to stop the seizures and then proceeded to the ER to help quit alcohol. In the ER she underwent an extensive evaluation. She was found have a low magnesium level and was significantly intoxicated. She was admitted for management of alcohol withdrawal. Patient seen and examined at bedside. Feeling much better than yesterday. She is hearing some voices with eyes closed but she realizes they are not real in part of her alcohol withdrawal. She is picking at things and feeling fidgety, she feels diaphoretic, she feels slightly nauseous, she does not have a headache, she is having significant tremors. She wants to quit drinking and is excited to speak with social work about possible ways to stop drinking. Objective - Vital Signs Vital signs: Vital Signs Temp 98.1 F 12/20/18 20:33 Pulse 98 12/20/18 20:33 Resp 18 12/20/18 20:33 BP 142/87 12/20/18 20:33 Pulse Ox 96 12/20/18 20:33 Intake & Output 12/20/18 12/20/18 12/21/18 06:59 18:59 06:59 Intake Total 1850 Balance 1850 Intake: Intake, IV Titration 300 Amount Magnesium Sulfate-D5w Pmx 100 1 gm In Dextrose/Water 1 100ml.bag @ 100 mls/hr IVPB ONCE ONE Rx#: [id number] Sodium Chloride 0.9% 1, 200 000 ml @ 100 mls/hr IV . Q10H STA Rx#:[id number] Oral 1550 Other: # Voids 2 3 - Exam General: non toxic, no distress, diaphoretic, disheveled, appears at stated age Derm: warm, dry Head: atraumatic, normocephalic, symmetric Eyes: EOMI, no lid lag, anicteric sclera Mouth: no lip lesion, mucus membranes moist Cardiovascular: S1S2 reg, no murmur, positive posterior tibial pulse bilateral, Lungs: Decreased breath sounds bilateral, no rhonchi, no rales , no accessory muscle use Abdominal: soft, nontender to palpation, no guarding, no appreciable organomegaly Ext: no gross muscle atrophy, no edema, no contractures Neuro: CN II-XI grossly intact, no focal neuro deficits, + bilateral tremor Psych: Alert, oriented, anxious - Labs CBC & Chem 7: 12/20/18 07:57 12/20/18 07:57 Labs: Abnormal Lab Results - Last 24 Hours (Table) 12/20/18 12/20/18 Range/Units 07:57 07:57 Plt Count 108 L (150-450) k/uL Creatinine 0.48 L (0.52-1.04) mg/dL Calcium 8.3 L (8.4-10.2) mg/dL AST 135 H (14-36) U/L ALT 128 H (9-52) U/L Total Protein 5.6 L (6.3-8.2) g/dL Albumin 3.3 L (3.5-5.0) g/dL Assessment and Plan Assessment: Alcohol withdrawal with seizure -Add Librium -CIWA protocol -Thiamine and folate acid supplementation -Social work consult Depression and anxiety -Her Neurontin was resumed -Psych consult pending -Sitter present at bedside Hypomagnesemia -Replaced in the ER -Repeat in a.m. Alcoholic hepatitis -Mild -Follow liver enzymes to ensure downtrending. If they are not then further workup with liver ultrasound and hepatitis profile Tobacco abuse -Nicotine replacement -smoking cessation
[2018-12-20] MEDS: SERTRALINE 50 MG TAB PO SCH (21:19)
[2018-12-20] MEDS ORDERED: GABAPENTIN 300 MG CAP ONE (22:00)
[2018-12-21] MEDS ORDERED: LORazepam 2 MG/ML INJ ONE (00:18)
[2018-12-21] MEDS: GABAPENTIN 300 MG CAP PO SCH ×4 (05:04→21:41)
[2018-12-21] MEDS: HEPARIN SODIUM,PORCINE 5,000 UNIT/ML 1 ML VIAL SQ SCH ×4 (05:04→23:08)
[2018-12-21 08:59] LABS: ALT 114 U/L (9-52); AST 93 U/L (14-36); Albumin 3.5 g/dL (3.5-5.0); Alkaline Phosphatase 69 U/L (38-126); Anion Gap 8 mmol/L; Blood Urea Nitrogen 5 mg/dL (7-17); Carbon Dioxide 24 mmol/L (22-30); Chloride 105 mmol/L (98-107); Glucose 165 mg/dL (74-99); Magnesium 1.4 mg/dL (1.6-2.3); Potassium 3.3 mmol/L (3.5-5.1); Sodium 137 mmol/L (137-145); Total Bilirubin 0.9 mg/dL (0.2-1.3)
[2018-12-21] MEDS: PANTOPRAZOLE 40 MG TABLET PO SCH (09:10)
[2018-12-21] MEDS: NICOTINE 21MG/24HR PATCH TRANSDERM SCH (09:10)
[2018-12-21] MEDS: THIAMINE 100 MG TAB PO SCH ×2 (09:10→16:57)
[2018-12-21] MEDS: FOLIC ACID 1 MG TAB PO SCH (09:11)
--- NOTE | 2018-12-21 11:56 | P.PN ---
Subjective Progress Note Date: 12/21/18 Principal diagnosis: Alcohol withdrawal associated with seizure HPI: Patient is a 48-year-old female past medical history of depression, seizure secondary to alcohol withdrawal, arthritis, and anxiety who presented to the ER after a seizure. Patient had initially stopped drinking for 3 days and then had a seizure so she drank some alcohol to stop the seizures and then proceeded to the ER to help quit alcohol. In the ER she underwent an extensive evaluation. She was found have a low magnesium level and was significantly intoxicated. She was admitted for management of alcohol withdrawal. 12/21/2018: Patient feels better today, she is still a little bit anxious but this has improved. She still feels generalized tingling, no chest pain or abdominal pain no nausea or vomiting or shortness of breath. No reported seizures. Objective - Vital Signs Vital signs: Vital Signs Temp 97.9 F 12/21/18 05:00 Pulse 82 12/21/18 05:00 Resp 16 12/21/18 05:00 BP 118/78 12/21/18 05:00 Pulse Ox 94 L 12/21/18 05:00 Intake & Output 12/20/18 12/21/18 12/21/18 18:59 06:59 18:59 Intake Total 1230 Balance 1230 Intake: Intake, IV Titration 400 Amount Sodium Chloride 0.9% 1, 400 000 ml @ 100 mls/hr IV . Q10H STA Rx#:[id number] Oral 830 Other: # Voids 3 1 - Exam General: Regular rhythm state not in distress Derm: warm, dry Head: atraumatic, normocephalic, symmetric Eyes: EOMI, anicteric sclera Mouth: no lip lesion, mucus membranes moist Cardiovascular: S1S2 reg, no murmur, rubs or gallops. Lungs: Clear to auscultation bilateral, no crackles no rhonchi no wheezing. Abdominal: soft, nontender to palpation, no guarding, no appreciable organomegaly Ext: no gross muscle atrophy, no edema, no contractures Neuro: CN II-XI grossly intact, no focal neuro deficits Psych: Alert, oriented, anxious - Labs CBC & Chem 7: 12/20/18 07:57 12/21/18 07:52 Labs: Abnormal Lab Results - Last 24 Hours (Table) 12/21/18 Range/Units 07:52 Potassium 3.3 L (3.5-5.1) mmol/L BUN 5 L (7-17) mg/dL Creatinine 0.45 L (0.52-1.04) mg/dL Glucose 165 H (74-99) mg/dL Magnesium 1.4 L (1.6-2.3) mg/dL AST 93 H (14-36) U/L ALT 114 H (9-52) U/L Total Protein 6.0 L (6.3-8.2) g/dL Assessment and Plan Plan: Alcohol withdrawal with seizure -Continue Ativan and Librium -Continue CIWA protocol -Thiamine and folate acid supplementation -Social work consult appreciated. Depression and anxiety -Continue on Neurontin -Psych consult appreciated, patient was started on Zoloft 50 mg by mouth at bedtime. -Sitter discontinued by psychiatry Outpatient follow-up. Hypomagnesemia -Replace , magnesium 1.4 today Mild hypokalemia: Replace Potassium 3.3 Alcoholic hepatitis -Mild -Improved, AST 93/ADL 114 , continue to monitor Tobacco abuse, without evidence of withdrawal -Nicotine replacement -smoking cessation Disposition: Home in 1-2 days
[2018-12-21] MEDS ORDERED: POTASSIUM CHLORIDE ER 20 MEQ TAB.ER PO STA (12:02)
[2018-12-21] MEDS: LORazepam 2 MG/ML INJ IV PRN ×3 (12:53→21:45)
[2018-12-21] MEDS: MAGNESIUM SULFATE-D5W PMX 1 GM in DEXTROSE/WATER 1 100ML.BAG IVPB SCH ×2 (12:56→14:38)
[2018-12-21] MEDS: SERTRALINE 50 MG TAB PO SCH (21:41)
[2018-12-22] MEDS: LORazepam 2 MG/ML INJ IV PRN (04:23)
[2018-12-22 05:19] VITALS: BP 96/57; PULSE 88; RESP 16; TEMP 97.9
[2018-12-22] MEDS: NICOTINE 21MG/24HR PATCH TRANSDERM SCH (09:00)
[2018-12-22] MEDS: FOLIC ACID 1 MG TAB PO SCH (09:00)
[2018-12-22] MEDS: GABAPENTIN 300 MG CAP PO SCH (09:00)
[2018-12-22] MEDS: PANTOPRAZOLE 40 MG TABLET PO SCH (09:00)
[2018-12-22] MEDS: HEPARIN SODIUM,PORCINE 5,000 UNIT/ML 1 ML VIAL SQ SCH (09:00)
[2018-12-22] MEDS: THIAMINE 100 MG TAB PO SCH (09:00)
--- NOTE | 2018-12-22 09:38 | P.DS ---
Providers Date of admission: 12/19/18 20:22 Expected date of discharge: 12/22/18 Attending physician: Pepe Mcclain MD Consults: 12/19/18 21:29 Consult Physician Routine Consulting Provider: Gavin Venegas Consult Reason/Comments: depression Do you want consulting provider notified?: Yes Primary care physician: Stated None Hospital Course: Diagnoses at discharge: 1. Alcohol abuse with withdrawal 2. Seizures withdrawal 3. Depression 4. Anxiety 5. Hypokalemia 6. Hypomagnesemia 7. Alcoholic hepatitis 8. Tobacco use without evidence of abdominal HPI Patient is a 48-year-old female past medical history of depression, seizure secondary to alcohol withdrawal, arthritis, and anxiety who presented to the ER after a seizure. Patient had initially stopped drinking for 3 days and then had a seizure so she drank some alcohol to stop the seizures and then proceeded to the ER to help quit alcohol. In the ER she underwent an extensive evaluation. She was found have a low magnesium level and was significantly intoxicated. She was admitted for management of alcohol withdrawal. Hospital course and treatment: Patient was to the hospital because of seizure induced by alcohol withdrawal. She quit drinking 3 days prior to admission. She was treated for alcohol withdrawal, she was placed on CIWA protocol, including folate and thiamine Ativan and Librium. She did not have any more seizures while in the hospital. Her withdrawal symptoms continue to improve and by the time of discharge is much better. She had electrolyte imbalance including hypokalemia and hypomagnesemia which were replaced She has alcoholic Hepatitis with mild elevation which trended down. Her Neurontin for depression was restarted on the lower dose. Psychiatry also recommended Zoloft She'll be discharged home to follow-up with PCP in psychiatry. Patient Condition at Discharge: Stable Plan - Discharge Summary New Discharge Prescriptions: New Gabapentin [Neurontin] 300 mg PO TID 2 Days cap Sertraline [Zoloft] 50 mg PO HS #30 tab Discontinued Gabapentin 600 mg PO TID Discharge Medication List Gabapentin [Neurontin] 300 mg PO TID 2 Days cap 12/22/18 [Rx] Sertraline [Zoloft] 50 mg PO HS #30 tab 12/22/18 [Rx] Follow up Appointment(s)/Referral(s): None,Stated [Primary Care Provider] - 1-2 days Activity/Diet/Wound Care/Special Instructions: cardiac Discharge Disposition: HOME SELF-CARE
== END 2018-12-22 11:15 | disposition home or self-care (01) | DRG 897 ==
LOC: EC 17:14 → 3NMEDONC 20:22
PROVIDERS: ADMIT Family Medicine; ATTEND Family Medicine
DX: F10.239 Alcohol dependence with withdrawal, unspecified (principal); G40.509 Epileptic seizures related to external causes, not intractable, without status epilepticus; K70.10 Alcoholic hepatitis without ascites; Y90.8 Blood alcohol level of 240 mg/100 ml or more; E83.42 Hypomagnesemia; E87.6 Hypokalemia; F10.231 Alcohol dependence with withdrawal delirium; F17.210 Nicotine dependence, cigarettes, uncomplicated; F32.9 Major depressive disorder, single episode, unspecified; F41.9 Anxiety disorder, unspecified; Z79.899 Other long term (current) drug therapy; Z82.5 Family history of asthma and other chronic lower respiratory diseases; Z87.442 Personal history of urinary calculi; Z98.82 Breast implant status; Z81.1 Family history of alcohol abuse and dependence; M16.0 Bilateral primary osteoarthritis of hip
CPT/HCPCS: 36415; 80053; 80306; 80320; 80329; 81001; 83520; 83690; 83735; 84100; 85025; 93005; 96361; 96365; 96375; 99285

== ENCOUNTER 2018-12-25 00:35 | Inpatient (IN) | payer OTHER ==
[2018-12-25] MEDS ORDERED: SODIUM CHLORIDE 0.9% 1,000 ML IV STA (01:07)
--- NOTE | 2018-12-25 01:11 | ED ---
Overdose HPI - General Chief Complaint: Overdose Stated Complaint: Mental Health Time Seen by Provider: 12/25/18 00:47 Source: EMS Mode of arrival: EMS Limitations: altered mental status - History of Present Illness Initial Comments: This patient is a 48-year-old woman who comes to the department by ambulance. History was reported to me as being suicidal and taking an overdose. The patient has altered mental status when I performed the history and physical exam and is therefore not giving any history. MD Complaint: intentional overdose - Related Data Previous Rx's Medication Instructions Recorded Gabapentin [Neurontin] 300 mg PO TID 2 Days cap 12/22/18 Sertraline [Zoloft] 50 mg PO HS #30 tab 12/22/18 Allergies Allergy/AdvReac Type Severity Reaction Status Date / Time No Known Allergies Allergy Verified 12/25/18 01:07 Review of Systems ROS Statement: Those systems with pertinent positive or pertinent negative responses have been documented in the HPI. ROS Other: All systems not noted in ROS Statement are negative. Limitations: ROS unobtainable due to patients medical condition Past Medical History Past Medical History: Seizure Disorder Additional Past Medical History / Comment(s): Alcoholism, alcohol withdrawal with seizures/insomnia/loss of appetite, arthritis bilateral hips, kidney stones History of Any Multi-Drug Resistant Organisms: None Reported Past Surgical History: No Surgical Hx Reported Additional Past Surgical History / Comment(s): Lithotripsy, ESS, bilateral breast implants. Past Anesthesia/Blood Transfusion Reactions: No Reported Reaction Past Psychological History: Anxiety, Depression Smoking Status: Current every day smoker Past Alcohol Use History: Abuse, Daily, Heavy Past Drug Use History: None Reported, Prescription Drug Abuse - Past Family History Mother Additional Family Medical History / Comment(s): Mother is obese Father Family Medical History: COPD Additional Family Medical History / Comment(s): Father of alcoholism. General Exam General appearance: obtunded Head exam: Present: atraumatic, normocephalic Eye exam: Present: PERRL, EOMI Neck exam: Present: normal inspection Respiratory exam: Present: normal lung sounds bilaterally. Absent: respiratory distress, wheezes, rales, rhonchi Cardiovascular Exam: Present: regular rate, normal rhythm, normal heart sounds. Absent: systolic murmur, diastolic murmur, rubs, gallop GI/Abdominal exam: Present: soft, hypoactive bowel sounds. Absent: distended, tenderness, guarding, rebound, rigid, organomegaly, mass, pulsatile mass, hernia Extremities exam: Present: normal inspection, normal capillary refill. Absent: pedal edema, calf tenderness Neurological exam: Present: altered Skin exam: Present: warm, dry, intact, normal color. Absent: rash Course Vital Signs 12/25/18 12/25/18 12/25/18 00:57 01:16 01:20 Temperature 97.6 F Pulse Rate 115 H 102 H Respiratory 10 L 15 Rate Blood Pressure 108/82 124/80 O2 Sat by Pulse 95 99 99 Oximetry 12/25/18 12/25/18 12/25/18 01:30 01:40 01:50 Temperature Pulse Rate 126 H 129 H 125 H Respiratory 13 17 13 Rate Blood Pressure 127/98 124/81 163/91 O2 Sat by Pulse 94 L 99 Oximetry 12/25/18 12/25/18 12/25/18 02:00 02:10 02:20 Temperature Pulse Rate 110 H 101 H 101 H Respiratory 12 15 13 Rate Blood Pressure 132/79 148/86 155/92 O2 Sat by Pulse 99 99 99 Oximetry 12/25/18 12/25/18 12/25/18 02:30 02:40 02:50 Temperature Pulse Rate 110 H 93 Respiratory 12 12 Rate Blood Pressure 140/92 154/98 158/129 O2 Sat by Pulse 95 Oximetry 12/25/18 12/25/18 12/25/18 03:10 03:40 04:00 Temperature Pulse Rate 87 80 80 Respiratory 16 14 14 Rate Blood Pressure 118/80 108/73 118/82 O2 Sat by Pulse 96 97 96 Oximetry 12/25/18 12/25/18 04:20 05:00 Temperature 97.7 F Pulse Rate 79 78 Respiratory 13 14 Rate Blood Pressure 119/80 121/86 O2 Sat by Pulse 96 95 Oximetry Procedures - Intubation Sedative: Etomidate Paralytic: Succinylcholine Laryngoscope: other (Scope) ET Tube Size: 7.5 ET Tube Uncuffed: No Tube Secured Depth (cm): 20 Tube Secured Location: lips Tube Placement Confirmation: visualized tube passing through cords, equal breath sounds bilaterally, no breath sounds over epigastrium, confirmation by capnometry Patient Tolerated Procedure: well Intubation Complications: none Medical Decision Making - Medical Decision Making Patient is a 48-year-old woman here with altered mental status after reportedly taking an overdose of a number of substances including Tylenol, ibuprofen, veronika odiazepine, and alcohol. At my initial history and physical, I'm not able to adequately arouse the patient, there is no protective airway reflexes, and therefore is intubated for airway protection. - Lab Data Result diagrams: 12/25/18 07:06 12/25/18 07:06 Lab Results 12/25/18 12/25/18 12/25/18 Range/Units 02:05 02:05 02:05 WBC 6.1 (3.8-10.6) k/uL RBC 3.95 (3.80-5.40) m/uL Hgb 11.4 (11.4-16.0) gm/dL Hct 35.4 (34.0-46.0) % MCV 89.7 (80.0-100.0) fL MCH 28.9 (25.0-35.0) pg MCHC 32.3 (31.0-37.0) g/dL RDW 13.8 (11.5-15.5) % Plt Count 114 L (150-450) k/uL Neutrophils % 66 % Lymphocytes % 27 % Monocytes % 3 % Eosinophils % 1 % Basophils % 0 % Neutrophils # 4.0 (1.3-7.7) k/uL Lymphocytes # 1.7 (1.0-4.8) k/uL Monocytes # 0.2 (0-1.0) k/uL Eosinophils # 0.1 (0-0.7) k/uL Basophils # 0.0 (0-0.2) k/uL Sample Site ABG pH (7.35-7.45) ABG pCO2 (35-45) mmHg ABG pO2 (83-108) mmHg ABG HCO3 (21-25) mmol/L ABG Total CO2 (19-24) mmol/L ABG O2 Saturation (94-97) % ABG Base Excess mmol/L Baudilio Test FiO2 % Sodium 146 H (137-145) mmol/L Potassium 3.8 (3.5-5.1) mmol/L Chloride 114 H (98-107) mmol/L Carbon Dioxide 23 (22-30) mmol/L Anion Gap 9 mmol/L BUN 12 (7-17) mg/dL Creatinine 0.54 (0.52-1.04) mg/dL Est GFR (CKD-EPI)AfAm >90 (>60 ml/min/1.73 sqM) Est GFR (CKD-EPI)NonAf >90 (>60 ml/min/1.73 sqM) Glucose 107 H (74-99) mg/dL Plasma Lactic Acid Vinay (0.7-2.0) mmol/L Calcium 8.1 L (8.4-10.2) mg/dL Total Bilirubin 0.2 (0.2-1.3) mg/dL AST 73 H (14-36) U/L ALT 85 H (9-52) U/L Alkaline Phosphatase 63 (38-126) U/L Troponin I (0.000-0.034) ng/mL Total Protein 6.0 L (6.3-8.2) g/dL Albumin 3.5 (3.5-5.0) g/dL Urine Color Yellow Urine Appearance Cloudy H (Clear) Urine pH 5.0 (5.0-8.0) Ur Specific [place] 1.031 (1.001-1.035) Urine Protein Trace H (Negative) Urine Glucose (UA) Negative (Negative) Urine Ketones Negative (Negative) Urine Blood Negative (Negative) Urine Nitrite Negative (Negative) Urine Bilirubin Negative (Negative) Urine Urobilinogen <2.0 (<2.0) mg/dL Ur Leukocyte Esterase Large H (Negative) Urine RBC 2 (0-5) /hpf Urine WBC 26 H (0-5) /hpf Urine WBC Clumps Occasional H (None) /hpf Ur Squamous Epith Cells 3 (0-4) /hpf Amorphous Sediment Rare H (None) /hpf Urine Bacteria Occasional H (None) /hpf Hyaline Casts 179 H (0-2) /lpf Urine Mucus Occasional H (None) /hpf Urine HCG, Qual (Not Detectd) Salicylates <1.0 mg/dL Urine Opiates Screen Not Detected (NotDetected) Ur Oxycodone Screen Not Detected (NotDetected) Urine Methadone Screen Not Detected (NotDetected) Ur Propoxyphene Screen Not Detected (NotDetected) Acetaminophen 41.5 ug/mL Ur Barbiturates Screen Not Detected (NotDetected) U Tricyclic Antidepress Detected H (NotDetected) Ur Phencyclidine Scrn Not Detected (NotDetected) Ur Amphetamines Screen Not Detected (NotDetected) U Methamphetamines Scrn Not Detected (NotDetected) U Benzodiazepines Scrn Detected H (NotDetected) Urine Cocaine Screen Not Detected (NotDetected) U Marijuana (THC) Screen Not Detected (NotDetected) Serum Alcohol 166 mg/dL 12/25/18 12/25/18 12/25/18 Range/Units 02:05 02:05 02:05 WBC (3.8-10.6) k/uL RBC (3.80-5.40) m/uL Hgb (11.4-16.0) gm/dL Hct (34.0-46.0) % MCV (80.0-100.0) fL MCH (25.0-35.0) pg MCHC (31.0-37.0) g/dL RDW (11.5-15.5) % Plt Count (150-450) k/uL Neutrophils % % Lymphocytes % % Monocytes % % Eosinophils % % Basophils % % Neutrophils # (1.3-7.7) k/uL Lymphocytes # (1.0-4.8) k/uL Monocytes # (0-1.0) k/uL Eosinophils # (0-0.7) k/uL Basophils # (0-0.2) k/uL Sample Site ABG pH (7.35-7.45) ABG pCO2 (35-45) mmHg ABG pO2 (83-108) mmHg ABG HCO3 (21-25) mmol/L ABG Total CO2 (19-24) mmol/L ABG O2 Saturation (94-97) % ABG Base Excess mmol/L Baudilio Test FiO2 % Sodium (137-145) mmol/L Potassium (3.5-5.1) mmol/L Chloride (98-107) mmol/L Carbon Dioxide (22-30) mmol/L Anion Gap mmol/L BUN (7-17) mg/dL Creatinine (0.52-1.04) mg/dL Est GFR (CKD-EPI)AfAm (>60 ml/min/1.73 sqM) Est GFR (CKD-EPI)NonAf (>60 ml/min/1.73 sqM) Glucose (74-99) mg/dL Plasma Lactic Acid Vinay 1.7 (0.7-2.0) mmol/L Calcium (8.4-10.2) mg/dL Total Bilirubin (0.2-1.3) mg/dL AST (14-36) U/L ALT (9-52) U/L Alkaline Phosphatase (38-126) U/L Troponin I <0.012 (0.000-0.034) ng/mL Total Protein (6.3-8.2) g/dL Albumin (3.5-5.0) g/dL Urine Color Urine Appearance (Clear) Urine pH (5.0-8.0) Ur Specific [place] (1.001-1.035) Urine Protein (Negative) Urine Glucose (UA) (Negative) Urine Ketones (Negative) Urine Blood (Negative) Urine Nitrite (Negative) Urine Bilirubin (Negative) Urine Urobilinogen (<2.0) mg/dL Ur Leukocyte Esterase (Negative) Urine RBC (0-5) /hpf Urine WBC (0-5) /hpf Urine WBC Clumps (None) /hpf Ur Squamous Epith Cells (0-4) /hpf Amorphous Sediment (None) /hpf Urine Bacteria (None) /hpf Hyaline Casts (0-2) /lpf Urine Mucus (None) /hpf Urine HCG, Qual Not Detected (Not Detectd) Salicylates mg/dL Urine Opiates Screen (NotDetected) Ur Oxycodone Screen (NotDetected) Urine Methadone Screen (NotDetected) Ur Propoxyphene Screen (NotDetected) Acetaminophen ug/mL Ur Barbiturates Screen (NotDetected) U Tricyclic Antidepress (NotDetected) Ur Phencyclidine Scrn (NotDetected) Ur Amphetamines Screen (NotDetected) U Methamphetamines Scrn (NotDetected) U Benzodiazepines Scrn (NotDetected) Urine Cocaine Screen (NotDetected) U Marijuana (THC) Screen (NotDetected) Serum Alcohol mg/dL 12/25/18 Range/Units 02:45 WBC (3.8-10.6) k/uL RBC (3.80-5.40) m/uL Hgb (11.4-16.0) gm/dL Hct (34.0-46.0) % MCV (80.0-100.0) fL MCH (25.0-35.0) pg MCHC (31.0-37.0) g/dL RDW (11.5-15.5) % Plt Count (150-450) k/uL Neutrophils % % Lymphocytes % % Monocytes % % Eosinophils % % Basophils % % Neutrophils # (1.3-7.7) k/uL Lymphocytes # (1.0-4.8) k/uL Monocytes # (0-1.0) k/uL Eosinophils # (0-0.7) k/uL Basophils # (0-0.2) k/uL Sample Site Right Radial ABG pH 7.30 L (7.35-7.45) ABG pCO2 55 H (35-45) mmHg ABG pO2 325 H (83-108) mmHg ABG HCO3 27 H (21-25) mmol/L ABG Total CO2 29 H (19-24) mmol/L ABG O2 Saturation 99.5 H (94-97) % ABG Base Excess 0.9 mmol/L Baudilio Test Yes FiO2 100 % Sodium (137-145) mmol/L Potassium (3.5-5.1) mmol/L Chloride (98-107) mmol/L Carbon Dioxide (22-30) mmol/L Anion Gap mmol/L BUN (7-17) mg/dL Creatinine (0.52-1.04) mg/dL Est GFR (CKD-EPI)AfAm (>60 ml/min/1.73 sqM) Est GFR (CKD-EPI)NonAf (>60 ml/min/1.73 sqM) Glucose (74-99) mg/dL Plasma Lactic Acid Vinay (0.7-2.0) mmol/L Calcium (8.4-10.2) mg/dL Total Bilirubin (0.2-1.3) mg/dL AST (14-36) U/L ALT (9-52) U/L Alkaline Phosphatase (38-126) U/L Troponin I (0.000-0.034) ng/mL Total Protein (6.3-8.2) g/dL Albumin (3.5-5.0) g/dL Urine Color Urine Appearance (Clear) Urine pH (5.0-8.0) Ur Specific [place] (1.001-1.035) Urine Protein (Negative) Urine Glucose (UA) (Negative) Urine Ketones (Negative) Urine Blood (Negative) Urine Nitrite (Negative) Urine Bilirubin (Negative) Urine Urobilinogen (<2.0) mg/dL Ur Leukocyte Esterase (Negative) Urine RBC (0-5) /hpf Urine WBC (0-5) /hpf Urine WBC Clumps (None) /hpf Ur Squamous Epith Cells (0-4) /hpf Amorphous Sediment (None) /hpf Urine Bacteria (None) /hpf Hyaline Casts (0-2) /lpf Urine Mucus (None) /hpf Urine HCG, Qual (Not Detectd) Salicylates mg/dL Urine Opiates Screen (NotDetected) Ur Oxycodone Screen (NotDetected) Urine Methadone Screen (NotDetected) Ur Propoxyphene Screen (NotDetected) Acetaminophen ug/mL Ur Barbiturates Screen (NotDetected) U Tricyclic Antidepress (NotDetected) Ur Phencyclidine Scrn (NotDetected) Ur Amphetamines Screen (NotDetected) U Methamphetamines Scrn (NotDetected) U Benzodiazepines Scrn (NotDetected) Urine Cocaine Screen (NotDetected) U Marijuana (THC) Screen (NotDetected) Serum Alcohol mg/dL - EKG Data -: EKG Interpreted by Me EKG shows normal: sinus rhythm, axis (Normal), intervals (Normal), QRS complexes (Possible right ventricular conduction delay.) Rate: tachycardia (Rate approximately 109 bpm) Critical Care Time Critical Care Time: Yes (45 minutes) Disposition Clinical Impression: Drug overdose, intentional, Alcohol abuse, Transaminitis, Suicide attempt, Acetaminophen overdose, Altered mental status Disposition: ADMITTED IP TO THIS [facility] Condition: Critical Is patient prescribed a controlled substance at d/c from ED?: No
[2018-12-25] MEDS ORDERED: ETOMIDATE 2 MG/ML 10 ML VIAL IVP STA (01:41)
[2018-12-25] MEDS ORDERED: PROPOFOL 1,000 MG in EMPTY BAG 1 BAG IV ONE (01:53)
--- NOTE | 2018-12-25 02:04 | XR ---
EXAM: XR Chest, 1 View CLINICAL HISTORY: ITS.REASON XR Reason: MS change TECHNIQUE: Frontal view of the chest. COMPARISON: No relevant prior studies available. IMPRESSION: ET tube terminates 3.2 cm from the marta. NG tube side port terminates in the distal esophagus. Recommend advancing at least 10 cm.
[2018-12-25 02:24] LABS: Basophils % (A) 0 %; Eosinophils # (A) 0.1 k/uL (0-0.7); Eosinophils % (A) 1 %; HCT 35.4 % (34.0-46.0); HGB 11.4 gm/dL (11.4-16.0); Lymphocytes # (A) 1.7 k/uL (1.0-4.8); Lymphocytes % (A) 27 %; MCH 28.9 pg (25.0-35.0); MCHC 32.3 g/dL (31.0-37.0); MCV 89.7 fL (80.0-100.0); Mean Platelet Volume 8.7; Monocytes # (A) 0.2 k/uL (0-1.0); Monocytes % (A) 3 %; Neutrophils % (A) 66 %; Platelet Count 114 k/uL (150-450); RBC 3.95 m/uL (3.80-5.40); RDW 13.8 % (11.5-15.5); WBC 6.1 k/uL (3.8-10.6)
[2018-12-25 02:39] LABS: ALT 85 U/L (9-52); AST 73 U/L (14-36); Acetaminophen 41.5 ug/mL; Albumin 3.5 g/dL (3.5-5.0); Alkaline Phosphatase 63 U/L (38-126); Anion Gap 9 mmol/L; Blood Urea Nitrogen 12 mg/dL (7-17); Calcium 8.1 mg/dL (8.4-10.2); Carbon Dioxide 23 mmol/L (22-30); Chloride 114 mmol/L (98-107); Glucose 107 mg/dL (74-99); Potassium 3.8 mmol/L (3.5-5.1); Salicylate <1.0 mg/dL; Sodium 146 mmol/L (137-145); Total Bilirubin 0.2 mg/dL (0.2-1.3)
[2018-12-25 02:42] LABS: Amorphous Sediment,Urine Rare /hpf; Appearance,Urine Cloudy (Clear); Bacteria,Urine Occasional /hpf; Bilirubin,Urine Negative (Negative); Blood,Urine Negative (Negative); Color,Urine Yellow; Glucose,Urine (UA) Negative (Negative); Hyaline Casts,Urine 179 /lpf (0-2); Ketones,Urine Negative (Negative); Leukocyte Esterase,Urine Large (Negative); Mucus,Urine Occasional /hpf; Nitrite,Urine Negative (Negative); Protein,Urine Trace (Negative); RBC,Urine 2 /hpf (0-5); Specific Gravity,Urine 1.031 (1.001-1.035); Squamous Epithelial Cell,Urine 3 /hpf (0-4); Urobilinogen,Urine <2.0 mg/dL (<2.0); WBC,Urine 26 /hpf (0-5)
[2018-12-25 02:44] LABS: Amphetamine Screen,Urine Not Detected (NotDetected); Barbiturate Screen,Urine Not Detected (NotDetected); Benzodiazepines Screen,Urine Detected (NotDetected); Cocaine Screen,Urine Not Detected (NotDetected); Methadone Screen, Urine Not Detected (NotDetected); Opiate Screen,Urine Not Detected (NotDetected); Oxycodone Screen, Urine Not Detected (NotDetected); Phencyclidine Screen,Urine Not Detected (NotDetected); Tricyclic Antidepressant,Urine Detected (NotDetected); Urn Cannabinoid Scrn Not Detected (NotDetected)
--- NOTE | 2018-12-25 02:50 | CT ---
EXAM: CT Head Without Intravenous Contrast CLINICAL HISTORY: ITS.REASON CT Reason: Pain TECHNIQUE: Axial computed tomography images of the head/brain without intravenous contrast. CTDI is 50 mGy and DLP is 1082 mGy-cm. This CT exam was performed using one or more of the following dose reduction techniques: automated exposure control, adjustment of the mA and/or kV according to patient size, and/or use of iterative reconstruction technique. COMPARISON: No relevant prior studies available. FINDINGS: Brain: No hemorrhage, large hypodensity, or mass effect. Ventricles: No hydrocephalus. Bones/joints: Unremarkable. Soft tissues: Unremarkable. Sinuses: Unremarkable. Mastoid air cells: Clear. IMPRESSION: No acute hemorrhage, hydrocephalus, or mass effect.
[2018-12-25 02:54] LABS: ABG Base Excess 0.9 mmol/L; ABG HCO3 27 mmol/L (21-25); ABG Oxygen Saturation 99.5 % (94-97); ABG PCO2 55 mmHg (35-45); ABG PO2 325 mmHg (83-108); ABG TCO2 29 mmol/L (19-24)
[2018-12-25 03:16] LABS: Alcohol 166 mg/dL
[2018-12-25] MEDS ORDERED: ACETYLCYSTEINE IV 8,400 MG in DEXTROSE 5% IN WATER 200 ML IV ONE ×2 (04:00)
[2018-12-25] MEDS ORDERED: NALOXONE 0.4 MG/ML 1 ML VIAL IV PRN (04:02)
[2018-12-25] MEDS ORDERED: SUCCINYLCHOLINE CHLORIDE VIAL 200 MG/10 ML VIAL IV STA (04:15)
[2018-12-25] MEDS ORDERED: DEXTROSE 5% IV ONE ×2 (05:00→09:00)
[2018-12-25] MEDS ORDERED: ACETYLCYSTEINE IV ONE ×2 (05:00→09:00)
[2018-12-25] MEDS ORDERED: WATER IV ONE ×2 (05:00→09:00)
[2018-12-25] MEDS: SODIUM CHLORIDE 0.9% 1,000 ML IV SCH ×3 (05:43→21:18)
[2018-12-25 05:44] LABS: Glucose,Whole Blood 152 mg/dL (75-99)
[2018-12-25] MEDS ORDERED: PROPOFOL 1,000 MG in EMPTY BAG 1 BAG IV SCH (05:45)
[2018-12-25 05:52] LABS: ABG Base Excess -1.3 mmol/L; ABG HCO3 26 mmol/L (21-25); ABG Oxygen Saturation 98.5 % (94-97); ABG PCO2 55 mmHg (35-45); ABG PH 7.28 (7.35-7.45); ABG PO2 144 mmHg (83-108); ABG TCO2 27 mmol/L (19-24)
--- NOTE | 2018-12-25 06:27 | XR ---
EXAMINATION TYPE: XR chest 1V portable DATE OF EXAM: 12/25/2018 HISTORY: Tube placement. REFERENCE: Previous study dated 12/25/2018. FINDINGS: Patient is ET tube and NG tube remain in place. The NG tube is barely within the stomach an d should likely be advanced. The ET tube is in good position. Lungs remain clear. There is blunting of the right CP angle. The heart is not enlarged. IMPRESSION: 1. HIGH RIDING NG TUBE. 2. I CANNOT EXCLUDE A RIGHT-SIDED EFFUSION.
--- NOTE | 2018-12-25 06:57 | XR ---
EXAMINATION TYPE: XR chest 1V portable DATE OF EXAM: 12/25/2018 HISTORY: og tube. REFERENCE: Previous study dated 12/25/2018. FINDINGS: The patient is NG tube is been advanced and is now within the stomach. ET tube is unchanged in appearance. Heart size upper limits of normal. I suspect a small right effusion. IMPRESSION: 1. THE PATIENT IS NG TUBE IS BEEN ADVANCED AND IS NOW IN GOOD POSITION. 2. I SUSPECT A SMALL RIGHT EFFUSION.
[2018-12-25 07:35] LABS: Anion Gap 9 mmol/L; Blood Urea Nitrogen 12 mg/dL (7-17); Calcium 7.9 mg/dL (8.4-10.2); Carbon Dioxide 24 mmol/L (22-30); Chloride 111 mmol/L (98-107); Glucose 79 mg/dL (74-99); Magnesium 1.4 mg/dL (1.6-2.3); Phosphorus 3.7 mg/dL (2.5-4.5); Potassium 3.5 mmol/L (3.5-5.1); Sodium 144 mmol/L (137-145)
--- NOTE | 2018-12-25 07:42 | P.HPIM ---
History of Present Illness H&P Date: 12/25/18 The patient is a 48-year-old female with a past medical history of EtOH abuse, anxiety, and depression who was brought to the ED via EMS for polysubstance intentional overdose. History obtained from chart and from [employer] since patient intubated. The history was apparently reported by the patient's roommate who stated that she was found unresponsive with bottles of Tylenol, Xanax, ibuprofen, and gabapentin next to her. As per the roommate, the patient had been drinking earlier in the night and there was also an opened vodka bottle next the patient. The patient was unresponsive in the ED and unable to protect her airway and was thereby intubated. Of note, the patient was admitted to the hospital on 12/19/18 for alcohol intoxication and impending withdrawal. She was evaluated by psychiatry for suicidal ideation and was deemed not appropriate for inpatient mental health unit. The patient underwent an extensive evaluation in the ED w/ Brain CT negative for acute intracranial abnormalities. EKG revealed sinus tachycardia at 109 bpm. Laboratory evaluation revealed a WBC count 6.1, hemoglobin 11.4, platelets 114, creatinine 0.54, AST 73, LT 85, troponins less than 0.012, with urine toxicology positive for TCAs and benzodiazepines. Poison control was contacted and recommended that the patient be started on acetylcysteine. The patient was subsequently transferred to the ICU for further management. Review of Systems Review of systems could not be performed since patient intubated Past Medical History Past Medical History: Seizure Disorder Additional Past Medical History / Comment(s): Alcoholism, alcohol withdrawal with seizures/insomnia/loss of appetite, arthritis bilateral hips, kidney stones History of Any Multi-Drug Resistant Organisms: None Reported Past Surgical History: No Surgical Hx Reported Additional Past Surgical History / Comment(s): Lithotripsy, ESS, bilateral breast implants. Past Anesthesia/Blood Transfusion Reactions: No Reported Reaction Past Psychological History: Anxiety, Depression Smoking Status: Current every day smoker Past Alcohol Use History: Abuse, Daily, Heavy Past Drug Use History: None Reported, Prescription Drug Abuse - Past Family History Mother Additional Family Medical History / Comment(s): Mother is obese Father Family Medical History: COPD Additional Family Medical History / Comment(s): Father of alcoholism. Medications and Allergies Home Medications Medication Instructions Recorded Confirmed Type Gabapentin [Neurontin] 300 mg PO TID 2 Days cap 12/22/18 Rx Sertraline [Zoloft] 50 mg PO HS #30 tab 12/22/18 Rx Allergies Allergy/AdvReac Type Severity Reaction Status Date / Time No Known Allergies Allergy Verified 12/25/18 01:07 Physical Exam Vitals: Vital Signs Temp Pulse Resp BP Pulse Ox 12/25/18 05:00 97.7 F 78 14 121/86 95 12/25/18 04:20 79 13 119/80 96 12/25/18 04:00 80 14 118/82 96 12/25/18 03:40 80 14 108/73 97 12/25/18 03:10 87 16 118/80 96 12/25/18 02:50 93 12 158/129 95 12/25/18 02:40 110 H 12 154/98 12/25/18 02:30 140/92 12/25/18 02:20 101 H 13 155/92 99 12/25/18 02:10 101 H 15 148/86 99 12/25/18 02:00 110 H 12 132/79 99 12/25/18 01:50 125 H 13 163/91 99 12/25/18 01:40 129 H 17 124/81 94 L 12/25/18 01:30 126 H 13 127/98 12/25/18 01:20 102 H 15 124/80 99 12/25/18 01:16 99 12/25/18 00:57 97.6 F 115 H 10 L 108/82 95 Intake and Output 12/24/18 12/24/18 12/25/18 14:59 22:59 06:59 Intake Total 13.835 Balance 13.835 Intake: Intake, IV Titration 13.835 Amount Propofol 1,000 mg In 13.835 Empty Bag 1 bag @ Titrate IV .Q0M ONE Rx#: [id number] Other: Weight 56.699 kg General: non toxic, intubated female, appears at stated age, normal weight Derm: no unusual rashes/lesions no unusual ecchymoses, warm, dry Head: atraumatic, normocephalic, symmetric Eyes: anicteric sclera, pupils equal round reactive to light ENT: Nose and ears atraumatic Neck: No thyromegaly, no cervical lymphadenopathy, trachea midline, supple Mouth: no lip lesion Cardiovascular: S1S2 reg, no murmur, positive posterior tibial pulse bilateral, no edema, capillary refill less than 2 seconds Lungs: CTA bilateral, no rhonchi, no rales Abdominal: soft, no appreciable organomegaly, normal bowel sounds Ext: no gross muscle atrophy Neuro: Patient unresponsive to noxious stimuli Results CBC & Chem 7: 12/25/18 02:05 12/25/18 07:06 Labs: Abnormal Lab Results - Last 24 Hours (Table) 12/25/18 12/25/18 12/25/18 Range/Units 02:05 02:05 02:05 Plt Count 114 L (150-450) k/uL ABG pH (7.35-7.45) ABG pCO2 (35-45) mmHg ABG pO2 (83-108) mmHg ABG HCO3 (21-25) mmol/L ABG Total CO2 (19-24) mmol/L ABG O2 Saturation (94-97) % Sodium 146 H (137-145) mmol/L Chloride 114 H (98-107) mmol/L Glucose 107 H (74-99) mg/dL POC Glucose (mg/dL) (75-99) mg/dL Calcium 8.1 L (8.4-10.2) mg/dL AST 73 H (14-36) U/L ALT 85 H (9-52) U/L Total Protein 6.0 L (6.3-8.2) g/dL Urine Appearance Cloudy H (Clear) Urine Protein Trace H (Negative) Ur Leukocyte Esterase Large H (Negative) Urine WBC 26 H (0-5) /hpf Urine WBC Clumps Occasional H (None) /hpf Amorphous Sediment Rare H (None) /hpf Urine Bacteria Occasional H (None) /hpf Hyaline Casts 179 H (0-2) /lpf Urine Mucus Occasional H (None) /hpf U Tricyclic Antidepress Detected H (NotDetected) U Benzodiazepines Scrn Detected H (NotDetected) 12/25/18 12/25/18 Range/Units 02:45 05:33 Plt Count (150-450) k/uL ABG pH 7.30 L (7.35-7.45) ABG pCO2 55 H (35-45) mmHg ABG pO2 325 H (83-108) mmHg ABG HCO3 27 H (21-25) mmol/L ABG Total CO2 29 H (19-24) mmol/L ABG O2 Saturation 99.5 H (94-97) % Sodium (137-145) mmol/L Chloride (98-107) mmol/L Glucose (74-99) mg/dL POC Glucose (mg/dL) 152 H (75-99) mg/dL Calcium (8.4-10.2) mg/dL AST (14-36) U/L ALT (9-52) U/L Total Protein (6.3-8.2) g/dL Urine Appearance (Clear) Urine Protein (Negative) Ur Leukocyte Esterase (Negative) Urine WBC (0-5) /hpf Urine WBC Clumps (None) /hpf Amorphous Sediment (None) /hpf Urine Bacteria (None) /hpf Hyaline Casts (0-2) /lpf Urine Mucus (None) /hpf U Tricyclic Antidepress (NotDetected) U Benzodiazepines Scrn (NotDetected) Assessment and Plan Plan: Intentional overdose of benzodiazepines, tylenol, ibuprofen, and gabapentin status post endotracheal intubation -Started on acetylcysteine -Neuro checks -Continue with ventilator bundle -[employer] Supervisor consulted -Monitor electrolytes and replace accordingly -Psychiatry consulted for overdose EtOH abuse -Monitor for signs of withdrawal -CIWA protocol Abnormal UA -Since unable to obtain history, will start patient empirically on ceftriaxone -Obtain urine culture Thrombocytopenia -Likely secondary to EtOH abuse -Monitor CBC for now DVT prophylaxis -Heparin The patient is admitted with an anticipated greater than 2 midnight stay for evaluation of intentional polysubstance overdose. CODE STATUS:Full Code Discussed with: Patient Anticipated discharge date: 12/28/[address]: Home A total of 40 minutes was spent on the care of this complex patient more than 50% of the time was spent in counseling and care coordination.
[2018-12-25] MEDS: FAMOTIDINE 20 MG/2 ML VIAL IV SCH ×2 (08:15→21:17)
[2018-12-25] MEDS: HEPARIN SODIUM,PORCINE 5,000 UNIT/ML 1 ML VIAL SQ SCH ×2 (08:15→16:15)
[2018-12-25 08:23] LABS: Basophils % (A) 0 %; Eosinophils # (A) 0.1 k/uL (0-0.7); Eosinophils % (A) 2 %; HCT 36.3 % (34.0-46.0); HGB 11.3 gm/dL (11.4-16.0); Lymphocytes # (A) 1.5 k/uL (1.0-4.8); Lymphocytes % (A) 32 %; MCH 29.1 pg (25.0-35.0); MCHC 31.3 g/dL (31.0-37.0); MCV 92.8 fL (80.0-100.0); Monocytes # (A) 0.2 k/uL (0-1.0); Monocytes % (A) 4 %; Neutrophils # (A) 2.9 k/uL (1.3-7.7); Neutrophils % (A) 60 %; Platelet Count 118 k/uL (150-450); RBC 3.91 m/uL (3.80-5.40); RDW 13.7 % (11.5-15.5); WBC 4.8 k/uL (3.8-10.6)
[2018-12-25] MEDS ORDERED: CHLORHEXIDINE GLUCONATE 15 ML CUP MUCOUS MEM SCH (09:00)
[2018-12-25] MEDS ORDERED: LORazepam 2 MG/ML INJ IV PRN (09:57)
--- NOTE | 2018-12-25 11:14 | CONS ---
CONSULTATION DATE OF SERVICE: December 25, 2018 HISTORY OF PRESENT ILLNESS: This is a 48-year-old female with a history of seizure disorder, degenerative joint disease, kidney stones, insomnia, and previous tobacco and alcohol use. The patient apparently came in with a suicide attempt. She was very lethargic in the emergency room and she was intubated for airway protection by the ER physician. Apparently she was an overdose of unknown number of Neurontin, Tylenol, and Zoloft, tricyclic antidepressants and benzodiazepines. Anyway, the patient was moved to the ICU on the ventilator. I did speak to the ER physician. She had a recent hospitalization in December of this year for alcohol withdrawal seizures. The patient was seen in the ICU. She was on the assist-control mode rate of 14, breathing 18 times a minute, tidal volume of 400, FiO2 40% PEEP of 5. We had blood gases at 2:45 am this morning with a PO2 325, pCO2 of 55, and a pH of 7.3. This morning's blood gas at 5:51 showed a PO2 144, pCO2 of 55, and a pH of 7.25, pH 7.275. I have asked the nurses to discontinue the propofol and do a spontaneous breathing trial. She is getting saline 125 an hour, propofol at 50 mcg/kg per per minute and IV N-acetylcysteine as per Poison Control for the Tylenol overdose. MEDICATIONS: Apparently, her home medications included Zoloft and gabapentin. ALLERGIES: Denied. PAST MEDICAL HISTORY: Positive for seizure disorder, alcoholism and alcohol withdrawal seizures, insomnia, arthritis, kidney stones, and decreased appetite. SURGICAL HISTORY: Includes lithotripsy, bilateral breast implants. SOCIAL HISTORY: Positive for apparent tobacco and alcohol abuse. Apparently there was no history of any prescription drug abuse. I am not sure about illicit drug use. Again she was apparently positive in the drug screen for TCAs and benzodiazepines. The overdose included those medications possibly as well as Neurontin, Tylenol, and Zoloft. Poison Control was called. FAMILY HISTORY: Apparently positive for chronic alcohol abuse and COPD. REVIEW OF SYSTEMS: Cannot be obtained as the patient is currently on the mechanical ventilator. PHYSICAL EXAMINATION: VITAL SIGNS: Current vital signs include temperature 98.2, heart rate 100, respiratory rate 21, blood pressure 121/86 mean 97, saturation 98%. Appears in no acute distress. HEENT examination is grossly unremarkable. There is an NG tube and endotracheal tube in place. NECK: Supple. Full range of motion. No adenopathy. Neck veins are flat. CARDIOVASCULAR examination reveals regular rhythm and rate. S1, S2 normal. No S3, S4, or murmur. LUNGS: Relatively clear. A few scattered rhonchi. No wheezes or crackles. ABDOMEN: Soft. Bowel sounds are heard. EXTREMITIES are intact. No cyanosis, clubbing, or edema. SKIN without rash. NEUROLOGIC examination could not be performed because the patient was sedated. LABORATORY DATA: Reviewed. White count 4.8, hemoglobin 11.3, hematocrit 36.3, platelet count 118,000. Sodium 144, potassium 3.5, chloride 111, CO2 of 24. BUN and creatinine were 12 and 0.39. Her urine showed 26 WBCs, WBC clumps, her LE was positive. There was bacteria. This suggested urinary tract infection. HCG was negative. The drug screen was positive for benzodiazepines and TCAs. Salicylate level is less than 1. Her Tylenol level was 41.5. Her alcohol level of 166. Chest x-ray shows some minimal bibasilar atelectasis. Brain CT was negative. Medications are reviewed. Unnecessary medications will be discontinued. We will probably run the Rocephin for possible UTI. ASSESSMENT: 1. Suicide attempt with Neurontin, Tylenol, Zoloft, and a drug screen that was positive for benzodiazepines and tricyclic antidepressants. 2. History of recent admission to the hospital for alcohol withdrawal seizures. 3. History of arthritis. 4. Kidney stones. 5. Insomnia. 6. Chronic tobacco and alcohol abuse. 7. Possible urinary tract infection. PLAN: Unnecessary medications will be discontinued. We will hold the sedation and give the patient a spontaneous breathing trial. Additional recommendations and suggestions are forthcoming. Labs, x-rays and medications are all reviewed. Additional recommendations and suggestions are forthcoming. Prognosis is guarded. I have asked them to put in for Psychiatric consultation. MMODL / IJN: [id number] /
[2018-12-25] MEDS: LORazepam 2 MG/ML INJ IV PRN ×4 (11:15→21:18)
[2018-12-25] MEDS: FOLIC ACID 1 MG TAB PO SCH (12:46)
--- NOTE | 2018-12-25 13:56 | P.CN ---
Psychiatric Consult - . Consult:: 12/25/18 13:50 Identifying data this patient is a 48-year-old female who was admitted to the intensive care unit after a suicide attempt with multiple medication overdose. History of present illness: The patient is found lying awake in bed in the intensive care unit. She has a food safety officer at bedside. She demonstrates some confusion and is a partial historian. Documentation was reviewed. It appears that she overdosed with numerous medications including Neurontin and Tylenol Zoloft benzodiazepine and possibly a tricyclic antidepressant. Her acetaminophen level was elevated. The patient acknowledges taking an overdose acknowledges it was a suicide attempt but provides no information. She does have spontaneous speech and makes several random statements. She was intubated to protect her airway and was extubated this morning. Past psychiatric history: She states that she's been admitted to a psychiatric unit twice, she endorses a suicide attempt several years ago where she overdosed and required care in an ICU. It appears she is prescribed Zoloft 50 mg daily. 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 Legal and abuse history unknown. Mental status exam: The patient is a female appearing her stated age. She has a disheveled appearance she is dressed in hospital gowns. She is lying in bed and appears agitated. She frequently moves her head from side to side looking for things and continues to look at her upper extremities. She appears confused. Thought process is not well organized. She is able to provide some linear answers briefly. She is not able to appropriately answer questions regarding current suicidal or homicidal ideation. She does not answer when asked about psychotic symptoms. Insight and judgment are impaired. Impressions 1. Delirium secondary to overdose, suspect alcohol use disorder, depression on specified rule out major depressive disorder versus bipolar disorder Plan: The patient will likely require inpatient psychiatric hospitalization. The patient requires reevaluation once her delirium has cleared. She is currently on the CIWA protocol for alcohol withdrawal symptoms, continue food safety officer.
[2018-12-25 14:04] VITALS: BMI 27.9
--- NOTE | 2018-12-25 14:57 | P.PN ---
Subjective Progress Note Date: 12/25/18 (Delayed charting seen at 9 AM) Principal diagnosis: Overdose Patient is a 48-year-old female with a past medical history of abuse, anxiety, and depression who presented to the ER via EMS for polysubstance intentional overdose. In the ER she underwent an extensive evaluation. On arrival they noted that she was unresponsive and unable to protect her airway initially was therefore intubated. Per record review her roommate called EMS and she was found to be unresponsive with a bottle of whiskey and multiple pill bottles around her, it was felt this was likely a suicide attempt. She underwent a CT brain which was negative for any acute intracranial abnormality. Initial vital signs were tachycardia, heart rate of 115. Initial laboratory analysis showed pancytopenia with platelets of 114, acidosis related to CO2 retention, mild hypernatremia with a sodium of 146. Poison control was contacted who recommended and NAC drip. She is admitted to the ICU. Urinalysis was consistent with possible urinary tract infection with 26 white blood cell and she was started on Rocephin. Patient was able to be extubated on the morning of 12/25. She confirmed that overdose was a suicide attempt. Patient seen and examined at bedside. She is awake. She refuses to answer some questions. She does admit that this was a suicide attempt. She would not answer my question as to whether something happened after she left the hospital the last time. She denies any chest pain or shortness of breath. She then told she no longer wants to talk. Objective - Vital Signs Vital signs: Vital Signs Temp 98.7 F 12/25/18 13:55 Pulse 100 12/25/18 13:55 Resp 18 12/25/18 13:55 BP 158/90 12/25/18 13:55 Pulse Ox 96 12/25/18 13:55 Intake & Output 12/24/18 12/25/18 12/25/18 18:59 06:59 18:59 Intake Total 513.835 Output Total 155 Balance 358.835 Weight 56.699 kg Intake: IV 500 Dextrose 5% in Water 500 250 ml @ 125 mls/hr IV .Q4H7M ONE with Acetylcysteine IV 2,800 mg Rx#:[id number] Sodium Chloride 0.9% 1, 250 000 ml @ 125 mls/hr IV . Q8H RUBY Rx#:[id number] Intake, IV Titration 13.835 Amount Propofol 1,000 mg In 13.835 Empty Bag 1 bag @ Titrate IV .Q0M ONE Rx#: [id number] Output: Urine 155 - Exam General: non toxic, no distress, appears older than stated age Derm: warm, dry Head: atraumatic, normocephalic, symmetric Eyes: EOMI, no lid lag, anicteric sclera Mouth: no lip lesion, mucus membranes dry Cardiovascular: S1S2 reg, no murmur, positive posterior tibial pulse bilateral, Lungs: Decreased breath sounds bilateral, no rhonchi, no rales , no accessory muscle use Abdominal: soft, nontender to palpation, no guarding, no appreciable organomegaly Ext: no gross muscle atrophy, no edema, no contractures Neuro: CN II-XI grossly intact, no focal neuro deficits Psych: Awake, where she is in hospital, flat affect - Labs CBC & Chem 7: 12/25/18 07:06 12/25/18 07:06 Labs: Abnormal Lab Results - Last 24 Hours (Table) 12/25/18 12/25/18 12/25/18 Range/Units 02:05 02:05 02:05 Hgb (11.4-16.0) gm/dL Plt Count 114 L (150-450) k/uL ABG pH (7.35-7.45) ABG pCO2 (35-45) mmHg ABG pO2 (83-108) mmHg ABG HCO3 (21-25) mmol/L ABG Total CO2 (19-24) mmol/L ABG O2 Saturation (94-97) % Sodium 146 H (137-145) mmol/L Chloride 114 H (98-107) mmol/L Creatinine (0.52-1.04) mg/dL Glucose 107 H (74-99) mg/dL POC Glucose (mg/dL) (75-99) mg/dL Calcium 8.1 L (8.4-10.2) mg/dL Magnesium (1.6-2.3) mg/dL AST 73 H (14-36) U/L ALT 85 H (9-52) U/L Total Protein 6.0 L (6.3-8.2) g/dL Urine Appearance Cloudy H (Clear) Urine Protein Trace H (Negative) Ur Leukocyte Esterase Large H (Negative) Urine WBC 26 H (0-5) /hpf Urine WBC Clumps Occasional H (None) /hpf Amorphous Sediment Rare H (None) /hpf Urine Bacteria Occasional H (None) /hpf Hyaline Casts 179 H (0-2) /lpf Urine Mucus Occasional H (None) /hpf U Tricyclic Antidepress Detected H (NotDetected) U Benzodiazepines Scrn Detected H (NotDetected) 12/25/18 12/25/18 12/25/18 Range/Units 02:45 05:33 07:06 Hgb 11.3 L (11.4-16.0) gm/dL Plt Count 118 L (150-450) k/uL ABG pH 7.30 L (7.35-7.45) ABG pCO2 55 H (35-45) mmHg ABG pO2 325 H (83-108) mmHg ABG HCO3 27 H (21-25) mmol/L ABG Total CO2 29 H (19-24) mmol/L ABG O2 Saturation 99.5 H (94-97) % Sodium (137-145) mmol/L Chloride (98-107) mmol/L Creatinine (0.52-1.04) mg/dL Glucose (74-99) mg/dL POC Glucose (mg/dL) 152 H (75-99) mg/dL Calcium (8.4-10.2) mg/dL Magnesium (1.6-2.3) mg/dL AST (14-36) U/L ALT (9-52) U/L Total Protein (6.3-8.2) g/dL Urine Appearance (Clear) Urine Protein (Negative) Ur Leukocyte Esterase (Negative) Urine WBC (0-5) /hpf Urine WBC Clumps (None) /hpf Amorphous Sediment (None) /hpf Urine Bacteria (None) /hpf Hyaline Casts (0-2) /lpf Urine Mucus (None) /hpf U Tricyclic Antidepress (NotDetected) U Benzodiazepines Scrn (NotDetected) 12/25/18 Range/Units 07:06 Hgb (11.4-16.0) gm/dL Plt Count (150-450) k/uL ABG pH (7.35-7.45) ABG pCO2 (35-45) mmHg ABG pO2 (83-108) mmHg ABG HCO3 (21-25) mmol/L ABG Total CO2 (19-24) mmol/L ABG O2 Saturation (94-97) % Sodium (137-145) mmol/L Chloride 111 H (98-107) mmol/L Creatinine 0.39 L (0.52-1.04) mg/dL Glucose (74-99) mg/dL POC Glucose (mg/dL) (75-99) mg/dL Calcium 7.9 L (8.4-10.2) mg/dL Magnesium 1.4 L (1.6-2.3) mg/dL AST (14-36) U/L ALT (9-52) U/L Total Protein (6.3-8.2) g/dL Urine Appearance (Clear) Urine Protein (Negative) Ur Leukocyte Esterase (Negative) Urine WBC (0-5) /hpf Urine WBC Clumps (None) /hpf Amorphous Sediment (None) /hpf Urine Bacteria (None) /hpf Hyaline Casts (0-2) /lpf Urine Mucus (None) /hpf U Tricyclic Antidepress (NotDetected) U Benzodiazepines Scrn (NotDetected) Microbiology - Last 24 Hours (Table) 12/25/18 06:10 Urine Culture - Preliminary Urine,Catheterized 12/25/18 03:00 Sputum Culture - Preliminary Sputum Assessment and Plan Assessment: Overdose with alcohol intoxication, appears intentional suicide -Continue with product safety consultant -Psych consult -Continue with N-acetylcysteine drip until completed Probable urinary tract infection, present on admission -Continue with Rocephin -Await cultures Alcoholism with impending DTs -CIWA protocol, multivitamin, thiamine, folic acid -Social work consult Thrombocytopenia, likely secondary to alcohol use -Follow CBC Alcoholic hepatitis -Liver enzymes downtrending -Follow liver enzymes, no additional testing Tobacco abuse -Cessation -Nicotine replacement as needed Acute respiratory failure secondary to inability to protect airway, resolved DVT prophylaxis: Heparin Discussed with: Patient, nursing, Dr. Tony Anticipated discharge: 24-[address]: Likely mental health unit A total of 25 minutes was spent on the care of this complex patient more than 50% of the time was spent in counseling and care coordination.
[2018-12-25] MEDS: THIAMINE 100 MG TAB PO SCH (16:09)
[2018-12-26] MEDS: HEPARIN SODIUM,PORCINE 5,000 UNIT/ML 1 ML VIAL SQ SCH ×4 (00:50→23:21)
[2018-12-26 04:36] LABS: Basophils % (A) 0 %; Eosinophils # (A) 0.2 k/uL (0-0.7); Eosinophils % (A) 3 %; HCT 34.6 % (34.0-46.0); HGB 11.3 gm/dL (11.4-16.0); Lymphocytes # (A) 1.6 k/uL (1.0-4.8); Lymphocytes % (A) 22 %; MCH 29.2 pg (25.0-35.0); MCHC 32.5 g/dL (31.0-37.0); MCV 89.6 fL (80.0-100.0); Mean Platelet Volume 8.5; Monocytes # (A) 0.4 k/uL (0-1.0); Monocytes % (A) 5 %; Neutrophils # (A) 4.9 k/uL (1.3-7.7); Neutrophils % (A) 69 %; Platelet Count 134 k/uL (150-450); RBC 3.86 m/uL (3.80-5.40); RDW 14.3 % (11.5-15.5); WBC 7.2 k/uL (3.8-10.6)
[2018-12-26 04:46] LABS: ALT 68 U/L (9-52); AST 45 U/L (14-36); Acetaminophen <10.0 ug/mL; Albumin 3.1 g/dL (3.5-5.0); Alkaline Phosphatase 65 U/L (38-126); Anion Gap 3 mmol/L; Blood Urea Nitrogen 5 mg/dL (7-17); Calcium 8.5 mg/dL (8.4-10.2); Carbon Dioxide 26 mmol/L (22-30); Chloride 109 mmol/L (98-107); Glucose 80 mg/dL (74-99); Magnesium 1.3 mg/dL (1.6-2.3); Phosphorus 2.4 mg/dL (2.5-4.5); Potassium 3.2 mmol/L (3.5-5.1); Sodium 138 mmol/L (137-145); Total Bilirubin 0.6 mg/dL (0.2-1.3); Total Protein 5.5 g/dL (6.3-8.2)
[2018-12-26] MEDS ORDERED: Potassium Replacement Protocol 1 EACH MISC MISCELLANE PRN (05:01)
[2018-12-26] MEDS ORDERED: Magnesium Replacement Protocol 1 EACH MISC MISCELLANE PRN (05:01)
[2018-12-26] MEDS: MAGNESIUM SULFATE-D5W PMX 1 GM in DEXTROSE/WATER 1 100ML.BAG IVPB SCH ×3 (05:28→08:35)
[2018-12-26] MEDS: POTASSIUM CHLORIDE ER 20 MEQ TAB.ER PO SCH ×2 (05:28→08:18)
[2018-12-26] MEDS: SODIUM CHLORIDE 0.9% 1,000 ML IV SCH ×2 (05:28→14:59)
[2018-12-26] MEDS: THIAMINE 100 MG TAB PO SCH ×2 (06:38→17:06)
[2018-12-26] MEDS: LORazepam 2 MG/ML INJ IV PRN ×2 (06:38→19:51)
--- NOTE | 2018-12-26 07:22 | XR ---
EXAMINATION TYPE: XR chest 1V portable DATE OF EXAM: 12/26/2018 COMPARISON: 12/25/2018 HISTORY: Tube removal TECHNIQUE: Single frontal view of the chest is obtained. FINDINGS: Persistent consolidation in the left lower lung lesion near the cardiac border. Right lung is clear. No overt failure or pneumothorax. No pleural effusion. Heart size normal. NG tube has been removed. IMPRESSION: Left lower lobe subsegmental consolidation. Atelectasis versus infiltrate. Follow resolu tion to exclude underlying neoplasm.
[2018-12-26] MEDS ORDERED: MAGNESIUM SULFATE-D5W PMX 1 GM in DEXTROSE/WATER 1 100ML.BAG IVPB ONE (07:33)
[2018-12-26] MEDS: FOLIC ACID 1 MG TAB PO SCH (08:18)
[2018-12-26] MEDS: MULTIVITAMINS, THERA 1 EACH TAB PO SCH (08:18)
[2018-12-26] MEDS: FAMOTIDINE 20 MG/2 ML VIAL IV SCH ×2 (08:18→21:28)
--- NOTE | 2018-12-26 13:04 | P.PN ---
Subjective Progress Note Date: 12/26/18 Principal diagnosis: Overdose Patient is a 48-year-old female with a past medical history of abuse, anxiety, and depression who presented to the ER via EMS for polysubstance intentional overdose. In the ER she underwent an extensive evaluation. On arrival they noted that she was unresponsive and unable to protect her airway initially was therefore intubated. Per record review her roommate called EMS and she was found to be unresponsive with a bottle of whiskey and multiple pill bottles around her, it was felt this was likely a suicide attempt. She underwent a CT brain which was negative for any acute intracranial abnormality. Initial vital signs were tachycardia, heart rate of 115. Initial laboratory analysis showed pancytopenia with platelets of 114, acidosis related to CO2 retention, mild hypernatremia with a sodium of 146. Poison control was contac andreas who recommended and NAC drip. She is admitted to the ICU. Urinalysis was consistent with possible urinary tract infection with 26 white blood cell and she was started on Rocephin. Patient was able to be extubated on the morning of 12/25. She confirmed that overdose was a suicide attempt. She was doing better on the morning of 12/26. Her withdrawal symptoms were improving. She still had a low appetite. She was started on Librium. Patient seen and examined at bedside. Awake and alert today. She states that she just started taking pills and she was drunk but realizes that she needs to seek mental health. Denies any chest pain or shortness of breath. States that she has a mild headache, mild slight shaking, and no diaphoresis. Objective - Vital Signs Vital signs: Vital Signs Temp 99.2 F 12/26/18 04:00 Pulse 76 12/26/18 07:00 Resp 14 12/26/18 07:00 BP 131/80 12/26/18 07:00 Pulse Ox 93 L 12/26/18 07:00 Intake & Output 12/25/18 12/26/18 12/26/18 18:59 06:59 18:59 Intake Total 2425.0 1562.5 125 Output Total 720 1350 200 Balance 1705.0 212.5 -75 Weight 57.2 kg Intake: IV 2125.0 1437.5 125 Dextrose 5% in Water 500 750.0 62.5 ml @ 125 mls/hr IV .Q4H7M ONE with Acetylcysteine IV 2,800 mg Rx#:[id number] Sodium Chloride 0.9% 1, 1375 1375 125 000 ml @ 125 mls/hr IV . Q8H [facility] Rx#:[id number] Intake, IV Titration 100 Amount cefTRIAXone 1 gm In 100 Sodium Chloride 0.9% 50 ml @ 100 mls/hr IVPB Q24HR [facility] Rx#:[id number] Oral 200 Lipid 125 Sodium Chloride 0.9% 1, 125 000 ml @ 125 mls/hr IV . Q8H [facility] Rx#:[id number] Output: Urine 720 1350 200 Other: Voiding Method Indwelling Catheter Indwelling Catheter - Exam General: non toxic, no distress, appears older than stated age Derm: warm, dry Head: atraumatic, normocephalic, symmetric Eyes: EOMI, no lid lag, anicteric sclera Mouth: no lip lesion, mucus membranes dry Cardiovascular: S1S2 reg, no murmur, positive posterior tibial pulse bilateral, Lungs: Decreased breath sounds bilateral, no rhonchi, no rales , no accessory muscle use Abdominal: soft, nontender to palpation, no guarding, no appreciable organomegaly Ext: no gross muscle atrophy, no edema, no contractures Neuro: CN II-XI grossly intact, no focal neuro deficits Psych: Awake,alert, withdrawn - Labs CBC & Chem 7: 12/26/18 03:58 12/26/18 03:58 Labs: Abnormal Lab Results - Last 24 Hours (Table) 12/26/18 12/26/18 Range/Units 03:58 03:58 Hgb 11.3 L (11.4-16.0) gm/dL Plt Count 134 L (150-450) k/uL Potassium 3.2 L (3.5-5.1) mmol/L Chloride 109 H (98-107) mmol/L BUN 5 L (7-17) mg/dL Creatinine 0.46 L (0.52-1.04) mg/dL Phosphorus 2.4 L (2.5-4.5) mg/dL Magnesium 1.3 L (1.6-2.3) mg/dL AST 45 H (14-36) U/L ALT 68 H (9-52) U/L Total Protein 5.5 L (6.3-8.2) g/dL Albumin 3.1 L (3.5-5.0) g/dL Microbiology - Last 24 Hours (Table) 12/25/18 03:00 Gram Stain - Preliminary Sputum Sputum Culture - Preliminary 12/25/18 06:10 Urine Culture - Preliminary Urine,Catheterized Assessment and Plan Assessment: Overdose with alcohol intoxication, appears intentional suicide -Continue with traffic safety administrator -Psych recs apprecaited -completed N-acetylcysteine drip Strep agalactaie urinary tract infection, present on admission -Rocephin for 1 more day Hypomagnesemia, hypokalemia - replace and recheck Delerium tremems, alcoholism -CIWA protocol, multivitamin, thiamine, folic acid -librium added Thrombocytopenia, likely secondary to alcohol use -Follow CBC Alcoholic hepatitis -Liver enzymes downtrending -Follow liver enzymes, no additional testing Tobacco abuse -Cessation -Nicotine replacement as needed Acute respiratory failure secondary to inability to protect airway, resolved DVT prophylaxis: Heparin Discussed with: Patient, nursing Anticipated discharge: [address]: Likely mental health unit A total of 25 minutes was spent on the care of this complex patient more than 50% of the time was spent in counseling and care coordination.
--- NOTE | 2018-12-26 13:41 | P.PN ---
Subjective Progress Note Date: 12/26/18 48-year-old female patient came in for a drug overdose. She has history of polysubstance abuse. The patient has history of chronic anxiety and depression. The patient was intubated with the patient was subsequently extubated successfully. This morning she is awake and alert. No signs of any delirium tremens. No confusion. No altered mentation. She had a breakfast this morning. She is hemodynamically stable. No fever or chills. The chest x-ray showed a left lower lobe Infiltrate is present in the left lung base and the patient on IV Rocephin. The urine culture was positive for strep group B. No significant leukocytosis. The rest of the electrodes are all within normal limits. Tylenol level is less than 10. Objective - Vital Signs Vital signs: Vital Signs Temp 98.9 F 12/26/18 08:00 Pulse 81 12/26/18 10:00 Resp 14 12/26/18 10:00 BP 144/93 12/26/18 10:00 Pulse Ox 95 12/26/18 10:00 Intake & Output 12/25/18 12/26/18 12/26/18 18:59 06:59 18:59 Intake Total 2425.0 1562.5 1150 Output Total 720 1350 700 Balance 1705.0 212.5 450 Weight 57.2 kg Intake: IV 2125.0 1437.5 500 Dextrose 5% in Water 500 750.0 62.5 ml @ 125 mls/hr IV .Q4H7M ONE with Acetylcysteine IV 2,800 mg Rx#:[id number] Sodium Chloride 0.9% 1, 1375 1375 500 000 ml @ 125 mls/hr IV . Q8H [facility] Rx#:[id number] Intake, IV Titration 100 400 Amount Magnesium Sulfate-D5w Pmx 300 1 gm In Dextrose/Water 1 100ml.bag @ 100 mls/hr IVPB ONCE ONE Rx#: [id number] cefTRIAXone 1 gm In 100 100 Sodium Chloride 0.9% 50 ml @ 100 mls/hr IVPB Q24HR [facility] Rx#:[id number] Oral 200 250 Lipid 125 Sodium Chloride 0.9% 1, 125 000 ml @ 125 mls/hr IV . Q8H [facility] Rx#:[id number] Output: Urine 720 1350 700 Uretheral ([place]) 500 Other: Voiding Method Indwelling Catheter Indwelling Catheter Toilet # Voids 1 - Exam General: non toxic, no distress, appears older than stated age Derm: warm, dry Head: atraumatic, normocephalic, symmetric Eyes: EOMI, no lid lag, anicteric sclera Mouth: no lip lesion, mucus membranes dry Cardiovascular: S1S2 reg, no murmur, positive posterior tibial pulse bilateral, Lungs: Decreased breath sounds bilateral, no rhonchi, no rales , no accessory muscle use Abdominal: soft, nontender to palpation, no guarding, no appreciable organomegaly Ext: no gross muscle atrophy, no edema, no contractures Neuro: CN II-XI grossly intact, no focal neuro deficits Psych: Awake,alert, withdrawn - Labs CBC & Chem 7: 12/26/18 03:58 12/26/18 03:58 Labs: Abnormal Lab Results - Last 24 Hours (Table) 12/25/18 12/26/18 12/26/18 Range/Units 05:47 03:58 03:58 Hgb 11.3 L (11.4-16.0) gm/dL Plt Count 134 L (150-450) k/uL ABG pH 7.28 L (7.35-7.45) ABG pCO2 55 H (35-45) mmHg ABG pO2 144 H (83-108) mmHg ABG HCO3 26 H (21-25) mmol/L ABG Total CO2 27 H (19-24) mmol/L ABG O2 Saturation 98.5 H (94-97) % Potassium 3.2 L (3.5-5.1) mmol/L Chloride 109 H (98-107) mmol/L BUN 5 L (7-17) mg/dL Creatinine 0.46 L (0.52-1.04) mg/dL Phosphorus 2.4 L (2.5-4.5) mg/dL Magnesium 1.3 L (1.6-2.3) mg/dL AST 45 H (14-36) U/L ALT 68 H (9-52) U/L Total Protein 5.5 L (6.3-8.2) g/dL Albumin 3.1 L (3.5-5.0) g/dL Microbiology - Last 24 Hours (Table) 12/25/18 06:10 Urine Culture - Final Urine,Catheterized Strep agalactiae - (group b) 12/25/18 03:00 Gram Stain - Preliminary Sputum Sputum Culture - Preliminary Assessment and Plan Plan: 1 acute drug overdose with alcohol intoxication, possibly secondary suicidal attempt 2 acute respiratory failure, recovered. This was an acute respiratory failure for airway protection as the patient had polysubstance abuse and alcohol intoxication 3 hypokalemia and hypomagnesemia secondary to above 4 chronic alcoholism 5 thrombocytopenia secondary to alcoholism 6 alcoholic hepatitis, LFTs improving 7 history of smoking 8 left lower lobe pulmonary infiltrate, rule out aspiration 9 UTI with strep group B. Plan Advance diet. Continue IV Rocephin , replace electrolytes. Watch for any signs of delirium tremens. 24 hour sitter. The patient was seen by psych catheter the patient will need inpatient psychiatric evaluation. We'll continue to follow.
[2018-12-26 13:54] LABS: INR 0.9 (<1.2); Prothrombin Time 10.2 sec (9.0-12.0)
[2018-12-26 19:20] VITALS: RESP 18
[2018-12-27 08:36] LABS: Basophils % (A) 0 %; Eosinophils # (A) 0.3 k/uL (0-0.7); Eosinophils % (A) 7 %; HCT 37.2 % (34.0-46.0); HGB 11.8 gm/dL (11.4-16.0); Lymphocytes # (A) 1.7 k/uL (1.0-4.8); Lymphocytes % (A) 34 %; MCH 28.3 pg (25.0-35.0); MCHC 31.8 g/dL (31.0-37.0); Mean Platelet Volume 9.1; Monocytes # (A) 0.3 k/uL (0-1.0); Monocytes % (A) 6 %; Neutrophils # (A) 2.6 k/uL (1.3-7.7); Neutrophils % (A) 52 %; Platelet Count 158 k/uL (150-450); RBC 4.18 m/uL (3.80-5.40); RDW 14.5 % (11.5-15.5)
[2018-12-27 08:48] LABS: Anion Gap 5 mmol/L; Blood Urea Nitrogen 8 mg/dL (7-17); Calcium 8.9 mg/dL (8.4-10.2); Carbon Dioxide 28 mmol/L (22-30); Chloride 108 mmol/L (98-107); Glucose 108 mg/dL (74-99); Magnesium 1.6 mg/dL (1.6-2.3); Potassium 3.5 mmol/L (3.5-5.1); Sodium 141 mmol/L (137-145)
[2018-12-27] MEDS: MULTIVITAMINS, THERA 1 EACH TAB PO SCH (08:58)
[2018-12-27] MEDS: HEPARIN SODIUM,PORCINE 5,000 UNIT/ML 1 ML VIAL SQ SCH (08:59)
[2018-12-27] MEDS: FAMOTIDINE 20 MG/2 ML VIAL IV SCH (08:59)
[2018-12-27] MEDS ORDERED: MAGNESIUM OXIDE 400 MG TAB PO STA (09:13)
[2018-12-27] MEDS ORDERED: POTASSIUM CHLORIDE ER 20 MEQ TAB.ER PO STA (09:13)
--- NOTE | 2018-12-27 09:25 | P.DS ---
Providers Date of admission: 12/25/18 04:04 Expected date of discharge: 12/27/18 Attending physician: Emily Caldwell MD Consults: 12/25/18 04:07 Consult Physician Stat Consulting Provider: Alexander Tony Reason/Comments: Intubated patient Do you want consulting provider notified?: Already Contacted Primary care physician: Stated None Hospital Course: Discharge Diagnosis: Overdose with alcohol intoxication Strep Agalactaie UTI, POA Delirium Tremens Hypomagnesemia Hypokalemia Alcoholism Thrombocytopenia Alcoholic hepatitis Tobacco abuse Hospital Course: Patient is a 48-year-old female with a past medical history of abuse, anxiety, and depression who presented to the ER via EMS for polysubstance intentional overdose. In the ER she underwent an extensive evaluation. On arrival they noted that she was unresponsive and unable to protect her airway initially was therefore intubated. Per record review her roommate called EMS and she was found to be unresponsive with a bottle of whiskey and multiple pill bottles around her, it was felt this was likely a suicide attempt. She underwent a CT brain which was negative for any acute intracranial abnormality. Initial vital signs were tachycardia, heart rate of 115. Initial laboratory analysis showed pancytopenia with platelets of 114, acidosis related to CO2 retention, mild hypernatremia with a sodium of 146. Poison control was contacted who recommended and NAC drip. She is admitted to the ICU. Urinalysis was consistent with possible urinary tract infection with 26 white blood cell and she was started on Rocephin. Patient was able to be extubated on the morning of 12/25. She confirmed that overdose was a suicide attempt. She was doing better on the morning of 12/26. Her withdrawal symptoms were improving. She still had a low appetite. She was started on Librium. Her magnesium and potassium where aggressively replaced. On the morning of 12/27 she was no longer requiring ativan and was determined medically stable for discharged to the mental health unit. She will receive her last dose of rocephin prior to discharge. Patient seen and examined at bedside. No chest pain, SOB, nausea, OLIVEROS, sweaty, + low appetite, tremors improving. Vital signs reviewed and stable. General: non toxic, no distress, appears at stated age Derm: warm, dry Head: atraumatic, normocephalic, symmetric Eyes: EOMI, no lid lag, anicteric sclera Mouth: no lip lesion, mucus membranes moist Cardiovascular: S1S2 reg, no murmur, positive posterior tibial pulse bilateral, Lungs: CTA bilateral, no rhonchi, no rales , no accessory muscle use Abdominal: soft, nontender to palpation, no guarding, no appreciable organomegaly Ext: no gross muscle atrophy, no edema, no contractures Neuro: CN II-XI grossly intact, no focal neuro deficits, + tremors b/l Psych: Alert, oriented, anxious and tearful A total of 35 minutes of time were spent preparing this complex discharge summary . Pertinent Studies: Head CT- NAP LLL atelectasis Patient Condition at Discharge: Stable Plan - Discharge Summary Discharge Rx Participant: No New Discharge Prescriptions: No Action Gabapentin [Neurontin] 300 mg PO TID 2 Days cap Sertraline [Zoloft] 50 mg PO HS #30 tab Discharge Medication List Gabapentin [Neurontin] 300 mg PO TID 2 Days cap 12/22/18 [Rx] Sertraline [Zoloft] 50 mg PO HS #30 tab 12/22/18 [Rx] Follow up Appointment(s)/Referral(s): None,Stated [Primary Care Provider] - 1-2 days
[2018-12-27] MEDS: THIAMINE 100 MG TAB PO SCH (09:38)
--- NOTE | 2018-12-27 11:40 | P.PN ---
Subjective Progress Note Date: 12/27/18 This is a 48-year-old here patient was post drug overdose. The patient is doing well. The patient is hemodynamic stable. She was transferred out of the intensive care unit. No encephalopathy. Hemodynamically stable. She is stable from the medical standpoint to be transferred to mental health for further treatment of her underlying depression. Objective - Vital Signs Vital signs: Vital Signs Temp 98.1 F 12/27/18 04:12 Pulse 78 12/27/18 04:12 Resp 18 12/27/18 04:12 BP 121/78 12/27/18 04:12 Pulse Ox 96 12/27/18 04:12 Intake & Output 12/26/18 12/27/18 12/27/18 18:59 06:59 18:59 Intake Total 1250 Output Total 700 Balance 550 Weight 63.5 kg Intake: IV 500 Sodium Chloride 0.9% 1, 500 000 ml @ 125 mls/hr IV . Q8H [facility] Rx#:[id number] Intake, IV Titration 400 Amount Magnesium Sulfate-D5w Pmx 300 1 gm In Dextrose/Water 1 100ml.bag @ 100 mls/hr IVPB ONCE ONE Rx#: [id number] cefTRIAXone 1 gm In 100 Sodium Chloride 0.9% 50 ml @ 100 mls/hr IVPB Q24HR [facility] Rx#:[id number] Oral 350 Output: Urine 700 Uretheral ([place]) 500 Other: Voiding Method Toilet Toilet # Voids 2 1 - Exam General: non toxic, no distress, appears older than stated age Derm: warm, dry Head: atraumatic, normocephalic, symmetric Eyes: EOMI, no lid lag, anicteric sclera Mouth: no lip lesion, mucus membranes dry Cardiovascular: S1S2 reg, no murmur, positive posterior tibial pulse bilateral, Lungs: Decreased breath sounds bilateral, no rhonchi, no rales , no accessory muscle use Abdominal: soft, nontender to palpation, no guarding, no appreciable organomegaly Ext: no gross muscle atrophy, no edema, no contractures Neuro: CN II-XI grossly intact, no focal neuro deficits Psych: Depression /anxiety - Labs CBC & Chem 7: 12/27/18 07:56 12/27/18 07:56 Labs: Abnormal Lab Results - Last 24 Hours (Table) 12/27/18 Range/Units 07:56 Chloride 108 H (98-107) mmol/L Glucose 108 H (74-99) mg/dL Microbiology - Last 24 Hours (Table) 12/25/18 03:00 Gram Stain - Final Sputum Sputum Culture - Final Strep agalactiae - (group b) 12/25/18 06:10 Urine Culture - Final Urine,Catheterized Strep agalactiae - (group b) Assessment and Plan Plan: 1 acute drug overdose with alcohol intoxication, possibly secondary suicidal attempt, recovered and the patient is going to inpatient psychiatry for suicidal/depression 2 acute respiratory failure, recovered. This was an acute respiratory failure for airway protection as the patient had polysubstance abuse and alcohol intoxication, recovered 3 hypokalemia and hypomagnesemia secondary to above, recovered 4 chronic alcoholism 5 thrombocytopenia secondary to alcoholism 6 alcoholic hepatitis, LFTs improving 7 history of smoking 8 left lower lobe pulmonary infiltrate, rule out aspiration 9 UTI with strep group B. Plan Medically stable. We'll sign off the case. Possible inpatient psychiatry treatment and transfer today
[2018-12-27] MEDS: FOLIC ACID 1 MG TAB PO SCH (12:02)
[2018-12-27 12:32] VITALS: BP 150/88; PULSE 64; TEMP 97.8
[2018-12-27] MEDS: LORazepam 2 MG/ML INJ IV PRN (15:09)
== END 2018-12-27 16:30 | DRG 917 ==
LOC: EC 00:35 → 2SICU 04:04 → 3NMEDONC 12-26 19:11
PROVIDERS: ADMIT Internal Medicine; ATTEND Internal Medicine
PROC: 0BH17EZ Insertion of Endotracheal Airway into Trachea, Via Natural or Artificial Opening (ICD-10-PCS; principal; 2018-12-25)
PROC: 5A1935Z Respiratory Ventilation, Less than 24 Consecutive Hours (ICD-10-PCS; 2018-12-25)
PROC: 0D9670Z Drainage of Stomach with Drainage Device, Via Natural or Artificial Opening (ICD-10-PCS; 2018-12-25)
DX: T42.4X2A Poisoning by benzodiazepines, intentional self-harm, initial encounter (principal); J96.00 Acute respiratory failure, unspecified whether with hypoxia or hypercapnia; F10.231 Alcohol dependence with withdrawal delirium; D61.818 Other pancytopenia; E87.2 Acidosis; N39.0 Urinary tract infection, site not specified; E87.0 Hyperosmolality and hypernatremia; D69.59 Other secondary thrombocytopenia; E83.42 Hypomagnesemia; K70.10 Alcoholic hepatitis without ascites; Y90.6 Blood alcohol level of 120-199 mg/100 ml; T39.1X2A Poisoning by 4-Aminophenol derivatives, intentional self-harm, initial encounter; T39.312A Poisoning by propionic acid derivatives, intentional self-harm, initial encounter; T51.0X2A Toxic effect of ethanol, intentional self-harm, initial encounter; T42.6X2A Poisoning by other antiepileptic and sedative-hypnotic drugs, intentional self-harm, initial encounter; B95.1 Streptococcus, group B, as the cause of diseases classified elsewhere; E87.6 Hypokalemia; F32.9 Major depressive disorder, single episode, unspecified; F41.9 Anxiety disorder, unspecified; G40.909 Epilepsy, unspecified, not intractable, without status epilepticus; M16.0 Bilateral primary osteoarthritis of hip; G47.00 Insomnia, unspecified; R91.8 Other nonspecific abnormal finding of lung field; F17.210 Nicotine dependence, cigarettes, uncomplicated; Z71.6 Tobacco abuse counseling; Z79.899 Other long term (current) drug therapy; Z87.442 Personal history of urinary calculi; Z98.82 Breast implant status; Y92.009 Unspecified place in unspecified non-institutional (private) residence as the place of occurrence of the external cause; Z83.49 Family history of other endocrine, nutritional and metabolic diseases; Z81.1 Family history of alcohol abuse and dependence; Z82.5 Family history of asthma and other chronic lower respiratory diseases
CPT/HCPCS: 31500; 36415; 36600; 70450; 71045; 80048; 80053; 80306; 80320; 80329; 81001; 81025; 82805; 83520; 83605; 83735; 84100; 84484; 85025; 85610; 87070; 87086; 87205; 94002; 96361; 96365; 99291

== ENCOUNTER 2018-12-27 16:29 | Inpatient (IN) | payer MEDICAID ==
[2018-12-27] MEDS ORDERED: ACETAMINOPHEN TAB 325 MG TAB PO PRN (17:20)
[2018-12-27] MEDS ORDERED: MAG HYDROX/AL HYDROX/SIMETH 30 ML CUP PO PRN (17:20)
[2018-12-27] MEDS ORDERED: LORazepam 2 MG/ML INJ IM PRN (17:23)
[2018-12-27 17:29] VITALS: BMI 21.9
[2018-12-27] MEDS: THIAMINE 100 MG TAB PO SCH (18:04)
[2018-12-27] MEDS: LORazepam 1 MG TAB PO PRN (20:14)
[2018-12-27] MEDS: GABAPENTIN 300 MG CAP PO SCH (20:14)
[2018-12-27] MEDS ORDERED: SERTRALINE 50 MG TAB PO SCH (21:00)
[2018-12-28] MEDS: LORazepam 1 MG TAB PO PRN ×5 (00:42→21:46)
--- NOTE | 2018-12-28 01:11 | P.CONS ---
History of Present Illness - Reason for Consult Consult date: 12/28/18 - History of Present Illness This is a 48-year-old female with a PMH of polysubstance abuse, anxiety, depression who came to the ED after an intentional overdose. The patient was unable to protect her airway on admission and was intubated. She was found to have multiple bottles around her with concern for suicide attempt. The patient was subsequently extubated after her mental status improved. She admitted that the overdose was a suicide attempt. She was cleared from the medicine service and was subsequently transferred to psychiatry for further management. Patient was seen in the mental health unit and reports feeling well. She she notes continued anxiety but otherwise denied any additional complaints. She denied chest pain, shortness of breath, fever, chills, or cough. She further denied abdominal pain, nausea, vomiting, or diarrhea. Review of Systems Pertinent positives and negatives as discussed in HPI, a complete review of systems was performed and all other systems are negative. Past Medical History Past Medical History: Seizure Disorder Additional Past Medical History / Comment(s): Alcoholism, alcohol withdrawal with seizures/insomnia/loss of appetite, arthritis bilateral hips, kidney stones History of Any Multi-Drug Resistant Organisms: None Reported Past Surgical History: Appendectomy, Tubal Ligation Additional Past Surgical History / Comment(s): Lithotripsy, ESS, bilateral breast implants. Past Anesthesia/Blood Transfusion Reactions: No Reported Reaction Smoking Status: Current every day smoker - Past Family History Mother Additional Family Medical History / Comment(s): Mother is obese Father Family Medical History: COPD Additional Family Medical History / Comment(s): Father of alcoholism. Medications and Allergies Home Medications Medication Instructions Recorded Confirmed Type Folic Acid 1 mg PO DAILY@1200 tab 12/27/18 12/27/18 Rx Multivitamins, Thera [Multivitamin 1 each PO DAILY tab 12/27/18 12/27/18 Rx (formulary)] Thiamine [Vitamin B-1] 100 mg PO BID-W/MEALS tab 12/27/18 12/27/18 Rx chlordiazePOXIDE HCl [Librium] 10 mg PO TID cap 12/27/18 12/27/18 Rx Allergies Allergy/AdvReac Type Severity Reaction Status Date / Time No Known Allergies Allergy Verified 12/27/18 17:15 Physical Exam Vitals: Vital Signs Temp Pulse Resp BP 12/28/18 00:54 98.0 F 68 16 175/109 12/27/18 20:09 72 20 175/72 12/27/18 17:21 97.7 F 70 16 142/92 12/27/18 16:35 97.7 F 70 16 142/92 Intake and Output 12/27/18 12/27/18 12/28/18 14:59 22:59 06:59 Other: Weight 63.5 kg General: non toxic, no distress, appears at stated age, normal weight Derm: no unusual rashes/lesions no unusual ecchymoses, warm, dry Head: atraumatic, normocephalic, symmetric Eyes: EOMI, no lid lag, anicteric sclera, pupils equal round reactive to light ENT: Nose and ears atraumatic, no thrush, no pharyngeal erythema Neck: No thyromegaly, no cervical lymphadenopathy, trachea midline, supple Mouth: no lip lesion, mucus membranes moist Cardiovascular: S1S2 reg, no murmur, positive posterior tibial pulse bilateral, no edema, capillary refill less than 2 seconds Lungs: CTA bilateral, no rhonchi, no rales , no accessory muscle use Abdominal: soft, nontender to palpation, no guarding, no appreciable organomegaly, normal bowel sounds Ext: no gross muscle atrophy, muscle strength 5 out of 5 in all 4 extremities grossly, no contractures, outstretched hand tremor Neuro: CN II-XI grossly intact, light touch intact all 4 extremities, finger to nose within normal limits, Psych: Alert, oriented, appropriate affect Assessment and Plan Plan: Suicide attempt -As per psychiatry Alcohol abuse with impending withdrawal -Continue with CIWA protocol -Monitor electrolytes and replace accordingly Alcoholic hepatitis -Monitor LFTs Polysubstance abuse -Advised on the importance of cessation -Monitor for any signs of withdrawal Thank you for allowing us to participate in the care of this patient. We will follow peripherally. Do not hesitate to contact us with questions. Someone can be reached from the [facility] hospitalist group at all hours of the day at [phone].
[2018-12-28 09:10] LABS: Basophils % (A) 1 %; Eosinophils # (A) 0.2 k/uL (0-0.7); Eosinophils % (A) 4 %; HCT 38.6 % (34.0-46.0); HGB 12.7 gm/dL (11.4-16.0); Lymphocytes # (A) 1.9 k/uL (1.0-4.8); Lymphocytes % (A) 37 %; MCH 29.5 pg (25.0-35.0); MCHC 32.9 g/dL (31.0-37.0); MCV 89.6 fL (80.0-100.0); Mean Platelet Volume 9.1; Monocytes # (A) 0.3 k/uL (0-1.0); Monocytes % (A) 6 %; Neutrophils # (A) 2.6 k/uL (1.3-7.7); Neutrophils % (A) 51 %; Platelet Count 189 k/uL (150-450); RBC 4.31 m/uL (3.80-5.40); RDW 14.6 % (11.5-15.5); WBC 5.2 k/uL (3.8-10.6)
[2018-12-28] MEDS: GABAPENTIN 300 MG CAP PO SCH ×3 (09:21→21:39)
[2018-12-28] MEDS: MULTIVITAMINS, THERA 1 EACH TAB PO SCH (09:21)
[2018-12-28] MEDS: THIAMINE 100 MG TAB PO SCH ×2 (09:21→18:31)
[2018-12-28 09:22] LABS: ALT 62 U/L (9-52); AST 43 U/L (14-36); Alkaline Phosphatase 68 U/L (38-126); Anion Gap 7 mmol/L; Blood Urea Nitrogen 11 mg/dL (7-17); Calcium 9.4 mg/dL (8.4-10.2); Carbon Dioxide 26 mmol/L (22-30); Chloride 107 mmol/L (98-107); Cholesterol 181 mg/dL (<200); Glucose 96 mg/dL (74-99); HDL Cholesterol 76 mg/dL (40-60); LDL Cholesterol,Calculated 92 mg/dL (0-99); Magnesium 1.5 mg/dL (1.6-2.3); Sodium 140 mmol/L (137-145); Total Bilirubin 0.7 mg/dL (0.2-1.3); Total Protein 6.8 g/dL (6.3-8.2); Triglycerides 65 mg/dL (<150)
--- NOTE | 2018-12-28 11:19 | P.HP ---
Psychiatric H&P - . H&P Date: 12/28/18 History & Physical: Allergies Allergy/AdvReac Type Severity Reaction Status Date / Time No Known Allergies Allergy Verified 12/27/18 17:15 Vital Signs Temp 98.0 F 12/28/18 00:54 Pulse 69 12/28/18 09:29 Resp 16 12/28/18 09:29 BP 122/75 12/28/18 09:29 Pulse Ox Intake & Output 12/27/18 12/28/18 12/28/18 18:59 06:59 18:59 Weight 63.5 kg Laboratory Last Values WBC 5.2 k/uL (3.8-10.6) 12/28/18 08:21 RBC 4.31 m/uL (3.80-5.40) 12/28/18 08:21 Hgb 12.7 gm/dL (11.4-16.0) 12/28/18 08:21 Hct 38.6 % (34.0-46.0) 12/28/18 08:21 MCV 89.6 fL (80.0-100.0) 12/28/18 08:21 MCH 29.5 pg (25.0-35.0) 12/28/18 08:21 MCHC 32.9 g/dL (31.0-37.0) 12/28/18 08:21 RDW 14.6 % (11.5-15.5) 12/28/18 08:21 Plt Count 189 k/uL (150-450) 12/28/18 08:21 Neutrophils % 51 % 12/28/18 08:21 Lymphocytes % 37 % 12/28/18 08:21 Monocytes % 6 % 12/28/18 08:21 Eosinophils % 4 % 12/28/18 08:21 Basophils % 1 % 12/28/18 08:21 Neutrophils # 2.6 k/uL (1.3-7.7) 12/28/18 08:21 Lymphocytes # 1.9 k/uL (1.0-4.8) 12/28/18 08:21 Monocytes # 0.3 k/uL (0-1.0) 12/28/18 08:21 Eosinophils # 0.2 k/uL (0-0.7) 12/28/18 08:21 Basophils # 0.0 k/uL (0-0.2) 12/28/18 08:21 Sodium 140 mmol/L (137-145) 12/28/18 08:21 Potassium 4.0 mmol/L (3.5-5.1) 12/28/18 08:21 Chloride 107 mmol/L (98-107) 12/28/18 08:21 Carbon Dioxide 26 mmol/L (22-30) 12/28/18 08:21 Anion Gap 7 mmol/L 12/28/18 08:21 BUN 11 mg/dL (7-17) 12/28/18 08:21 Creatinine 0.57 mg/dL (0.52-1.04) 12/28/18 08:21 Est GFR (CKD-EPI)AfAm >90 (>60 ml/min/1.73 sqM) 12/28/18 08:21 Est GFR (CKD-EPI)NonAf >90 (>60 ml/min/1.73 sqM) 12/28/18 08:21 Glucose 96 mg/dL (74-99) 12/28/18 08:21 Calcium 9.4 mg/dL (8.4-10.2) 12/28/18 08:21 Magnesium 1.5 mg/dL (1.6-2.3) L 12/28/18 08:21 Total Bilirubin 0.7 mg/dL (0.2-1.3) 12/28/18 08:21 AST 43 U/L (14-36) H 12/28/18 08:21 ALT 62 U/L (9-52) H 12/28/18 08:21 Alkaline Phosphatase 68 U/L (38-126) 12/28/18 08:21 Total Protein 6.8 g/dL (6.3-8.2) 12/28/18 08:21 Albumin 4.0 g/dL (3.5-5.0) 12/28/18 08:21 Triglycerides 65 mg/dL (<150) 12/28/18 08:21 Cholesterol 181 mg/dL (<200) 12/28/18 08:21 LDL Cholesterol, Calc 92 mg/dL (0-99) 12/28/18 08:21 HDL Cholesterol 76 mg/dL (40-60) H 12/28/18 08:21 TSH 4.270 mIU/L (0.465-4.680) 12/28/18 08:21 Assessment and Plan (1) Major depression Narrative/Plan: Identifying data this patient is a 48-year-old female who was admitted to the intensive care unit after a suicide attempt with multiple medication overdose. History of present illness: The patient is found lying awake in bed in the intensive care unit. She has a director employee safety and health at bedside. She demonstrates some confusion and is a partial historian. Documentation was reviewed. It appears that she overdosed with numerous medications including Neurontin and Tylenol Zoloft benzodiazepine and possibly a tricyclic antidepressant. Her acetaminophen level was elevated. The patient acknowledges taking an overdose acknowledges it was a suicide attempt but provides no information. She does have spontaneous speech and makes several random statements. She was intubated to protect her airway and was extubated this morning. Past psychiatric history: She states that she's been admitted to a psychiatric unit twice, she endorses a suicide attempt several years ago where she overdosed and required care in an ICU. It appears she is prescribed Zoloft 50 mg daily. 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 Legal and abuse history unknown. Mental status exam: The patient is a female appearing her stated age. She has a disheveled appearance she is dressed in hospital gowns. She is lying in bed and appears agitated. She frequently moves her head from side to side looking for things and continues to look at her upper extremities. She appears confused. Thought process is not well organized. She is able to provide some linear answers briefly. She is not able to appropriately answer questions regarding current suicidal or homicidal ideation. She does not answer when asked about psychotic symptoms. Insight and judgment are impaired. Impressions 1. Delirium secondary to overdose, suspect alcohol use disorder, depression on specified rule out major depressive disorder versus bipolar disorder Plan: The patient will likely require inpatient psychiatric hospitalization. Patient transferred to [facility] and will be evaluated on an involuntary basis for admission for attempted suicide with overdose will be evaluated by medicine psychiatry social work and therapy to be integrated in a [facility] milieu therapeutic environment. Current Visit: Yes Status: Acute Code(s): F32.9 - MAJOR DEPRESSIVE DISORDER, SINGLE EPISODE, UNSPECIFIED SNOMED Code(s): 804404464 (2) Suicide attempt Current Visit: No Status: Acute Code(s): T14.91XA - SUICIDE ATTEMPT, INITIAL ENCOUNTER SNOMED Code(s): 51827090 Time with Patient: Less than 30
[2018-12-28] MEDS: MAGNESIUM OXIDE 400 MG TAB PO SCH ×2 (12:31→21:37)
[2018-12-28 17:11] LABS: Hemoglobin A1C 5.4 % (4.0-6.0)
[2018-12-28] MEDS ORDERED: lamoTRIgine 25 MG TAB PO SCH (21:00)
[2018-12-28] MEDS ORDERED: PALIPERIDONE 3 MG TAB.ER.24 PO SCH (21:00)
[2018-12-28] MEDS: NALTREXONE HCL 50 MG TAB PO SCH (21:39)
[2018-12-29] MEDS: GABAPENTIN 300 MG CAP PO SCH ×3 (08:54→20:49)
[2018-12-29] MEDS: MAGNESIUM OXIDE 400 MG TAB PO SCH ×2 (08:54→20:49)
[2018-12-29] MEDS: THIAMINE 100 MG TAB PO SCH ×2 (08:54→16:12)
[2018-12-29] MEDS: MULTIVITAMINS, THERA 1 EACH TAB PO SCH (08:54)
--- NOTE | 2018-12-29 13:15 | P.PN ---
Subjective Progress Note Date: 12/29/18 Principal diagnosis: bipolar disorder and alcohol use disorder severe 12/29/2018: Chart reviewed, discussed with nursing staff and team meeting this morning. Patient interviewed one-on-one and she remains tearful sad and overwhelmed depressed and shameful. She still appears to be in withdrawal from alcohol and we'll continue current treatment. She denies suicidal or homicidal ideation. She denies auditory or visual hallucinations. She is quite anxious on presentation not able sit still tearful during the entire interview and tangential in thought. Objective - Vital Signs Vital signs: Vital Signs Temp 97.9 F 12/29/18 06:59 Pulse 61 12/29/18 06:59 Resp 16 12/29/18 06:59 BP 111/55 12/29/18 06:59 Pulse Ox - Labs CBC & Chem 7: 12/28/18 08:21 12/28/18 08:21 Assessment and Plan (1) Major depression Narrative/Plan: Identifying data this patient is a 48-year-old female who was admitted to the intensive care unit after a suicide attempt with multiple med ication overdose. History of present illness: The patient is found lying awake in bed in the intensive care unit. She has a drug safety data management specialist at bedside. She demonstrates some confusion and is a partial historian. Documentation was reviewed. It appears that she overdosed with numerous medications including Neurontin and Tylenol Zoloft benzodiazepine and possibly a tricyclic antidepressant. Her a cetaminophen level was elevated. The patient acknowledges taking an overdose acknowledges it was a suicide attempt but provides information that she felt helpless and overwhelmed by relapsing on alcohol and decided to kill herself. She does have spontaneous speech and makes several random statements. Past Medical History Past Medical History: Seizure Disorder Additional Past Medical History / Comment(s): Alcoholism, alcohol withdrawal with seizures/insomnia/loss of appetite, arthritis bilateral hips, kidney stones History of Any Multi-Drug Resistant Organisms: None Reported Past Surgical History: Appendectomy, Tubal Ligation Additional Past Surgical History / Comment(s): Lithotripsy, ESS, bilateral breast implants. Past Anesthesia/Blood Transfusion Reactions: No Reported Reaction Smoking Status: Current every day smoker - Past Family History Mother Additional Family Medical History / Comment(s): Mother is obese Father Family Medical History: COPD Additional Family Medical History / Comment(s): Father of alcoholism. Medications and Allergies Home Medications Medication Instructions Recorded Confirmed Type Folic Acid 1 mg PO DAILY@1200 tab 12/27/18 12/27/18 Rx Multivitamins, Thera [Multivitamin 1 each PO DAILY tab 12/27/18 12/27/18 Rx (formulary)] Thiamine [Vitamin B-1] 100 mg PO BID-W/MEALS tab 12/27/18 12/27/18 Rx chlordiazePOXIDE HCl [Librium] 10 mg PO TID cap 12/27/18 12/27/18 Rx Allergies Allergy/AdvReac Type Severity Reaction Status Date / Time No Known Allergies Allergy Verified 12/27/18 17:15 Past medical history: Recent overdose causing respiratory compromise requiring intubation, history of seizure disorder degenerative joint disease ALLERGIES NO KNOWN DRUG ALLERGIES She reports using alcohol "socially" there is documentation that she may have an alcohol use disorder, CIWA scores appear to be elevating Social history: The patient states that she is she has a 23-year-old daughter, the patient states she currently lives alone, 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 Legal and abuse history unknown. Mental status exam: General Appearance: [well groomed, disheveled, casual, appears younger than stated age] Speech/Language: [spontaneous, rapid Attitude/Behavior: [cooperative but tearful Mood: [ depressed 6/10, anxious6 out of 10] Affect: [full range Orientation: [time, person, place situation] Thought Content: [wnl Risk Factors: [she is suicidal (ideations, plan), and/or Homicidal (ideations, plan), other] Perception: [wnl Thought Processes: [goal-oriented Concentration/Attention Span: [wnl] [Per observation and interview with the patient] Recent Memory: [wnl] 3 out of 3 in 3 minutes] Remote Memory: [wnl] [past events, as related history] Intelligence: [ average] [based on history, based on vocabulary, syntax, grammar, and content] Judgement: [good] [per patient's behavior/history of present illness] Insight: [good] [understanding severity of illness/history of present illness] Impressions alcohol use disorder, bipolar disorder plan: 12/29/2018:She remains on 15 minute watch for suicidal homicidal ideation and safety, Usual protocol on the unit.she still has rapid thoughts and will increase her Lamictal to 50 mg by mouth daily at bedtime with a titration of 200 mg by mouth daily at bedtime. Increased her Invega to 6 mg by mouth daily at bedtime for her delusional psychotic presentation. She is planning on going to [facility] when she is psychiatrically stable on the unit which would be more likely to to be 01/03/2019. Current Visit: Yes Status: Acute Priority: Medium Code(s): F32.9 - MAJOR DEPRESSIVE DISORDER, SINGLE EPISODE, UNSPECIFIED SNOMED Code(s): 972838001 (2) Suicide attempt Current Visit: No Status: Acute Priority: Medium Code(s): T14.91XA - SUICIDE ATTEMPT, INITIAL ENCOUNTER SNOMED Code(s): 74399780 Time with Patient: Less than 30
[2018-12-29] MEDS: lamoTRIgine 25 MG TAB PO SCH (20:49)
[2018-12-29] MEDS: NICOTINE 14MG/24HR PATCH TRANSDERM SCH (20:49)
[2018-12-29] MEDS: PALIPERIDONE 6 MG TAB.ER.24 PO SCH (20:49)
[2018-12-29] MEDS: NALTREXONE HCL 50 MG TAB PO SCH (20:49)
[2018-12-30] MEDS: MAGNESIUM OXIDE 400 MG TAB PO SCH ×2 (08:54→21:28)
[2018-12-30] MEDS: MULTIVITAMINS, THERA 1 EACH TAB PO SCH (08:54)
[2018-12-30] MEDS: NICOTINE 14MG/24HR PATCH TRANSDERM SCH (08:54)
[2018-12-30] MEDS: THIAMINE 100 MG TAB PO SCH ×2 (08:54→17:22)
[2018-12-30] MEDS: GABAPENTIN 300 MG CAP PO SCH ×3 (08:54→21:28)
[2018-12-30] MEDS: lamoTRIgine 25 MG TAB PO SCH (21:28)
[2018-12-30] MEDS: NALTREXONE HCL 50 MG TAB PO SCH (21:28)
[2018-12-30] MEDS: PALIPERIDONE 6 MG TAB.ER.24 PO SCH (21:28)
--- NOTE | 2018-12-30 22:04 | PN ---
PROGRESS NOTE DATE OF SERVICE: 12/30/2018 CHIEF COMPLAINT: The patient relapsed to drinking. She had confusion and had overdosed on various medications. INTERVAL HISTORY: The patient has been doing fair. She had a quiet evening last night. She attended groups yesterday. She slept 6-1/2 hours. Today she has been up. She comes out in the day area. She attends all the groups. She is fairly active in group. She continues with ups and downs in mood and anxiety, which she acknowledges relates to alcohol withdrawal. She reviewed history of her alcohol use and noted that she has had a major struggle with alcohol. She says when she relapses and starts drinking, it gets out of control very rapidly, to the point where she drinks to blackout. She said she had a period of 9 months of sobriety. She was not able to tell me specifically when she relapsed to drinking after this 9 months of sobriety. She believes that she had been sober up until just this recent relapse leading to this hospitalization. It is noted in the record, however, that she had been drinking when she was admitted to the hospital on June 14, 2018. She was vague about recalling the particulars of that. She acknowledged that she drank, then she thinks that she had a number of weeks without drinking, including around the holidays. She thinks that she may have had some drinking after the holidays, though she was vague in particulars. She did not believe that she had any significant relapse for most of the remaining of winter until her current situation. She noted that because of her recent relapse she is very focused on going into [facility] for rehabilitation following discharge. She says that her boyfriend is able to get her into [facility] on the day of discharge from her hospital and she said that preliminary arrangements have been put in place. I had an extensive discussion with the patient regarding alcohol withdrawal. Vital signs have been stable, with no signs of withdrawal. CIWA scores on the day after admission included two that were at a high of 5. The rest of her scores, including the last 2 days, have been essentially zero. She tolerates her psychotropic medication. MENTAL STATUS: Patient gave good eye contact. Psychomotor activity was somewhat restless. She answered questions appropriately. Her thoughts were clear, coherent and goal-directed. She was quite animated. Her affect was somewhat constricted. She did show some emotional ups and downs as she talked about her situation and talked about feeling both shame and fear about her relapse. Her mood was dysphoric. She was somewhat distressed. There was no indication of thought disorder. Cognition was clear. ASSESSMENT: I will continue the current diagnosis and treatment plan. We will continue to engage the patient in individual and group therapeutic activities. I will continue psychotropic medications, including Invega 6 mg a day, Lamictal 50 mg a day and ReVia 50 mg a day. I will discontinue Ativan and Librium. The patient is also on Neurontin 300 mg 3 times a day. I had an extensive discussion with the patient regarding withdrawal issues, including early withdrawal, time and course of withdrawal. We talked about non-medication options to help manage early withdrawal. We discussed referral to [facility] at discharge. We will continue to focus on stabilization and discharge planning. JOSIE / YULI: [id number] /
[2018-12-31] MEDS: NICOTINE 14MG/24HR PATCH TRANSDERM SCH (08:36)
[2018-12-31] MEDS: MULTIVITAMINS, THERA 1 EACH TAB PO SCH (08:37)
[2018-12-31] MEDS: THIAMINE 100 MG TAB PO SCH ×2 (08:37→16:03)
[2018-12-31] MEDS: MAGNESIUM OXIDE 400 MG TAB PO SCH (08:37)
[2018-12-31] MEDS: GABAPENTIN 300 MG CAP PO SCH ×3 (08:37→20:55)
--- NOTE | 2018-12-31 20:45 | PN ---
PROGRESS NOTE DATE OF SERVICE : 12/31/2018 .CHIEF COMPLAINT: The patient relapsed to drinking. She had confusion and had overdosed on various medications. INTERVAL HISTORY: The patient has been doing fair overall. She had a quiet evening last night. She comes out of her room. She interacts with others. She attends group. She slept fairly well last night. Today, she has been up. She continues to be out in the day areas. When she is in groups, she seems to do fairly well. She will be seen to have a bright affect. She says groups have been helping her deal with some of the guilty feeling she has for pain and problem she has caused others with her drinking. When I talked to her, she acknowledged that she struggles with very poor self-esteem. She was able to talk about how when she was growing up, she never felt good enough. She said her mother had a very high focus on the daughters in the family as needing to be "perfect." She says as such she always made extra efforts to make herself attractive. In addition, she ran track and did any number of activities to somehow get her mother's approval, though she acknowledges that was rare. She says she continues to have flashbacks and struggles with this issue. She acknowledges that she has the drive to help everyone else before she helps herself. Overall, she feels that she has been showing some improvement in her mood. She says that when she is alone, she will start feeling down and thus comes out and presents herself in a superficially bright manner to combat that. She tolerates her psychotropic medications. MENTAL STATUS: Patient gave fair eye contact. Psychomotor activity was quite restless. She answered questions with direct responses. Her thoughts were clear, coherent, and goal directed. Her affect was intense. She smiled some of the time though much of the time she was also quite tearful and distressed that she talked about some of the emotional issues she struggled with. She broke down and sobbing quite a few times during the interview. Her mood was depressed. She was significantly distressed. There was no indication of thought disorder. ASSESSMENT: I will continue the current diagnosis and treatment plan. I will continue psychotropic medications the same. The patient appears to be making progress. She is not showing significant issues of withdrawal. I encouraged the patient to continue to be comfortable, letting out feelings to address these issues particularly of her poor self- esteem. We discussed the critical issue of this in regards to her going into treatment for herself and not for others. We will continue to focus on stabilization and discharge planning. JOSIE / YULI: [id number] / MTDD
[2018-12-31] MEDS: PALIPERIDONE 6 MG TAB.ER.24 PO SCH (20:55)
[2018-12-31] MEDS: NALTREXONE HCL 50 MG TAB PO SCH (20:55)
[2018-12-31] MEDS: lamoTRIgine 25 MG TAB PO SCH (20:55)
[2018-12-31] MEDS: traZODone HCL 50 MG TAB PO SCH (23:40)
[2019-01-01] MEDS: NICOTINE 14MG/24HR PATCH TRANSDERM SCH (08:59)
[2019-01-01] MEDS: MULTIVITAMINS, THERA 1 EACH TAB PO SCH (09:00)
[2019-01-01] MEDS: THIAMINE 100 MG TAB PO SCH ×2 (09:00→18:35)
[2019-01-01] MEDS: GABAPENTIN 300 MG CAP PO SCH ×3 (09:00→21:35)
[2019-01-01 15:29] LABS: Amorphous Sediment,Urine Occasional /hpf; Appearance,Urine Cloudy (Clear); Bacteria,Urine Rare /hpf; Bilirubin,Urine Negative (Negative); Blood,Urine Negative (Negative); Color,Urine Light Yellow; Glucose,Urine (UA) Negative (Negative); Ketones,Urine Negative (Negative); Leukocyte Esterase,Urine Large (Negative); Mucus,Urine Rare /hpf; Nitrite,Urine Negative (Negative); PH, Urine 6.5 (5.0-8.0); Protein,Urine Negative (Negative); RBC,Urine 6 /hpf (0-5); Squamous Epithelial Cell,Urine 20 /hpf (0-4); Urobilinogen,Urine <2.0 mg/dL (<2.0); WBC,Urine 31 /hpf (0-5)
[2019-01-01] MEDS: MAGNESIUM HYDROXIDE 2,400 MG/10 ML CUP PO PRN (19:22)
--- NOTE | 2019-01-01 21:01 | PN ---
PROGRESS NOTE DATE OF SERVICE: 01/01/2019 CHIEF COMPLAINT: The patient relapsed to drinking. She had confusion and had overdosed on various medications. INTERVAL HISTORY: The patient has been doing fairly well overall. She had a quiet evening last night. She comes out in the day area. She will interact with others. She has been cooperative with care. She slept fair last night. She received a Desyrel at 11:40 am. She said it took her a while to get to sleep. She says typically she will go to bed, then ruminate on various things and that makes it hard for her to fall asleep. She seemed to say that she slept fairly well after that. She has been active on the unit today. She attends groups. She seems to make an active contribution in group. When I talked to her about these issues she acknowledged that she probably works harder at helping others than she does at helping herself. She is very focused on getting referral for inpatient chemical dependency and inpatient chemical dependency program. She says that she has been gaining some insights, not only about her drinking issues but some of her emotional struggles as well. She says that she would like to consider being put on Antabuse as she says she will do anything that would help prevent her from relapsing to drinking. We continue to review acute withdrawal issues and followup planning. The patient tolerates her psychotropic medications. MENTAL STATUS: Patient gave fair eye contact. Psychomotor activity was restless. She answered questions appropriately. Her thoughts were clear, coherent, and goal directed. Her affect was somewhat intense. Her mood dysphoric. She seemed somewhat distressed, though not to a significant degree. There was no indication of thought disorder. Cognition was clear. ASSESSMENT: I will continue the current diagnosis and treatment plan. I will continue psychotropic medications the same. We will monitor how her sleep pattern is. I discussed sleep hygiene issues with the patient. We talked about options for followup treatment, particularly longer-term beyond a short-term substance use program. We will continue to focus on stabilization and discharge planning. MMDASHAL / EVEN: [id number] /
[2019-01-01] MEDS: PALIPERIDONE 6 MG TAB.ER.24 PO SCH (21:35)
[2019-01-01] MEDS: NALTREXONE HCL 50 MG TAB PO SCH (21:35)
[2019-01-01] MEDS: lamoTRIgine 25 MG TAB PO SCH (21:36)
[2019-01-01] MEDS: traZODone HCL 50 MG TAB PO SCH (21:36)
[2019-01-02 07:04] VITALS: RESP 16
[2019-01-02] MEDS: GABAPENTIN 300 MG CAP PO SCH ×3 (08:53→19:47)
[2019-01-02] MEDS: MULTIVITAMINS, THERA 1 EACH TAB PO SCH (08:53)
[2019-01-02] MEDS: THIAMINE 100 MG TAB PO SCH ×2 (08:53→16:16)
[2019-01-02] MEDS: NICOTINE 14MG/24HR PATCH TRANSDERM SCH (08:53)
[2019-01-02] MEDS: MAGNESIUM HYDROXIDE 2,400 MG/10 ML CUP PO PRN (08:55)
--- NOTE | 2019-01-02 10:47 | PN ---
PROGRESS NOTE DATE OF SERVICE: 01/02/2019. CHIEF COMPLAINT: The patient relapsed to drinking. She had confusion and had overdosed on various medications. INTERVAL HISTORY: Patient has been doing fairly well. She had a quiet evening last night. She says that she continues to have difficulty sleeping. She has problems falling asleep where when she tries to go to bed, she has too much on her mind and cannot quiet her thinking down. She has been attending groups and makes a good effort in group. She has been using therapeutic walking and other relaxation techniques. She has been coordinating with her support system to set up discharge planning and anticipates being admitted to [facility] on Wednesday. She is aiming for discharge tomorrow. She talked at length about being very motivated to control her drinking. She again talked about wanting to get on Antabuse as well as do any other things that would help prevent her from relapse into drinking. She had a significant drinking history over the last 5 years and is very focused on changing her lifestyle to prevent any future relapses. She tolerates psychotropic medications. MENTAL STATUS: Patient was somewhat restless. She was quite animated in the interview. She answered questions appropriately. Her thoughts were clear. She was spontaneous and interactive. Her affect was broad. She smiled some. She was quite energetic in how she presents herself. Her mood was somewhat down, though not significantly so. She seemed to have somewhat anxious manner. There was no indication of thought disorder. Cognition was clear. ASSESSMENT: I will continue the current diagnosis and treatment plan. I will increase trazodone to 100 mg at bedtime. She will receive the trazodone at 10 at night. I discussed sleep hygiene issues. We discussed alcohol withdrawal issues. The patient is hopeful to be discharged tomorrow. It does appear that it would be appropriate for her to be discharged. She has been putting plans in place for a referral to [facility]. MMODL / IJN: [id number] /
[2019-01-02] MEDS: NALTREXONE HCL 50 MG TAB PO SCH (19:47)
[2019-01-02] MEDS: lamoTRIgine 25 MG TAB PO SCH (19:47)
[2019-01-02] MEDS: PALIPERIDONE 6 MG TAB.ER.24 PO SCH (19:47)
[2019-01-02] MEDS ORDERED: traZODone HCL 100 MG TAB PO SCH (22:00)
[2019-01-03 01:19] VITALS: BP 131/67; PULSE 71; TEMP 97.6
[2019-01-03] MEDS: MULTIVITAMINS, THERA 1 EACH TAB PO SCH (08:45)
[2019-01-03] MEDS: GABAPENTIN 300 MG CAP PO SCH (08:45)
[2019-01-03] MEDS: NICOTINE 14MG/24HR PATCH TRANSDERM SCH (08:45)
[2019-01-03] MEDS: THIAMINE 100 MG TAB PO SCH (08:45)
[2019-01-03] MEDS: MAGNESIUM HYDROXIDE 2,400 MG/10 ML CUP PO PRN (08:46)
--- NOTE | 2019-01-03 11:17 | P.DS ---
Providers Date of admission: 12/27/18 16:33 Expected date of discharge: 01/03/19 Attending physician: Gavin Venegas DO Consults: 12/27/18 17:20 Consult Physician Routine Consulting Provider: Maryann Silver Consult Reason/Comments: H&P and medical Do you want consulting provider notified?: Yes Primary care physician: Stated None - Discharge Diagnosis(es) (1) Major depression Allergies Allergy/AdvReac Type Severity Reaction Status Date / Time No Known Allergies Allergy Verified 12/27/18 17:15 Vital Signs Temp 98.0 F 12/28/18 00:54 Pulse 69 12/28/18 09:29 Resp 16 12/28/18 09:29 BP 122/75 12/28/18 09:29 Pulse Ox Intake & Output 12/27/18 12/28/18 12/28/18 18:59 06:59 18:59 Weight 63.5 kg Laboratory Last Values WBC 5.2 k/uL (3.8-10.6) 12/28/18 08:21 RBC 4.31 m/uL (3.80-5.40) 12/28/18 08:21 Hgb 12.7 gm/dL (11.4-16.0) 12/28/18 08:21 Hct 38.6 % (34.0-46.0) 12/28/18 08:21 MCV 89.6 fL (80.0-100.0) 12/28/18 08:21 MCH 29.5 pg (25.0-35.0) 12/28/18 08:21 MCHC 32.9 g/dL (31.0-37.0) 12/28/18 08:21 RDW 14.6 % (11.5-15.5) 12/28/18 08:21 Plt Count 189 k/uL (150-450) 12/28/18 08:21 Neutrophils % 51 % 12/28/18 08:21 Lymphocytes % 37 % 12/28/18 08:21 Monocytes % 6 % 12/28/18 08:21 Eosinophils % 4 % 12/28/18 08:21 Basophils % 1 % 12/28/18 08:21 Neutrophils # 2.6 k/uL (1.3-7.7) 12/28/18 08:21 Lymphocytes # 1.9 k/uL (1.0-4.8) 12/28/18 08:21 Monocytes # 0.3 k/uL (0-1.0) 12/28/18 08:21 Eosinophils # 0.2 k/uL (0-0.7) 12/28/18 08:21 Basophils # 0.0 k/uL (0-0.2) 12/28/18 08:21 Sodium 140 mmol/L (137-145) 12/28/18 08:21 Potassium 4.0 mmol/L (3.5-5.1) 12/28/18 08:21 Chloride 107 mmol/L (98-107) 12/28/18 08:21 Carbon Dioxide 26 mmol/L (22-30) 12/28/18 08:21 Anion Gap 7 mmol/L 12/28/18 08:21 BUN 11 mg/dL (7-17) 12/28/18 08:21 Creatinine 0.57 mg/dL (0.52-1.04) 12/28/18 08:21 Est GFR (CKD-EPI)AfAm >90 (>60 ml/min/1.73 sqM) 12/28/18 08:21 Est GFR (CKD-EPI)NonAf >90 (>60 ml/min/1.73 sqM) 12/28/18 08:21 Glucose 96 mg/dL (74-99) 12/28/18 08:21 Calcium 9.4 mg/dL (8.4-10.2) 12/28/18 08:21 Magnesium 1.5 mg/dL (1.6-2.3) L 12/28/18 08:21 Total Bilirubin 0.7 mg/dL (0.2-1.3) 12/28/18 08:21 AST 43 U/L (14-36) H 12/28/18 08:21 ALT 62 U/L (9-52) H 12/28/18 08:21 Alkaline Phosphatase 68 U/L (38-126) 12/28/18 08:21 Total Protein 6.8 g/dL (6.3-8.2) 12/28/18 08:21 Albumin 4.0 g/dL (3.5-5.0) 12/28/18 08:21 Triglycerides 65 mg/dL (<150) 12/28/18 08:21 Cholesterol 181 mg/dL (<200) 12/28/18 08:21 LDL Cholesterol, Calc 92 mg/dL (0-99) 12/28/18 08:21 HDL Cholesterol 76 mg/dL (40-60) H 12/28/18 08:21 TSH 4.270 mIU/L (0.465-4.680) 12/28/18 08:21 Assessment and Plan (1) Major depression Narrative/Plan: Identifying data this patient is a 48-year-old female who was admitted to the intensive care unit after a suicide attempt with multiple medication overdose. History of present illness: The patient is found lying awake in bed in the intensive care unit. She has a drug safety specialist at bedside. She demonstrates some confusion and is a partial historian. Documentation was reviewed. It appears that she overdosed with numerous medications including Neurontin and Tylenol Zoloft benzodiazepine and possibly a tricyclic antidepressant. Her acetaminophen level was elevated. The patient acknowledges taking an overdose acknowledges it was a suicide attempt but provides no information. She does have spontaneous speech and makes several random statements. She was intubated to protect her airway and was extubated this morning. Past psychiatric history: She states that she's been admitted to a psychiatric unit twice, she endorses a suicide attempt several years ago where she overdosed and required care in an ICU. It appears she is prescribed Zoloft 50 mg daily. 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 Legal and abuse history unknown. Mental status exam: The patient is a female appearing her stated age. She has a disheveled appearance she is dressed in hospital gowns. She is lying in bed and appears agitated. She frequently moves her head from side to side looking for things and continues to look at her upper extremities. She appears confused. Thought process is not well organized. She is able to provide some linear answers briefly. She is not able to appropriately answer questions regarding current suicidal or homicidal ideation. She does not answer when asked about psychotic symptoms. Insight and judgment are impaired. Impressions 1. Delirium secondary to overdose, suspect alcohol use disorder, depression on specified rule out major depressive disorder versus bipolar disorder Current Visit: Yes Status: Acute Priority: Low (2) Suicide attempt Current Visit: No Status: Acute Priority: Low Hospital Course: plan: 12/29/2018:She remains on 15 minute watch for suicidal homicidal ideation and safety, Usual protocol on the unit.she still has rapid thoughts and will increase her Lamictal to 50 mg by mouth daily at bedtime with a titration of 200 mg by mouth daily at bedtime. Increased her Invega to 6 mg by mouth daily at bedtime for her delusional psychotic presentation. She is planning on going to [place] when she is psychiatrically stable on the unit which would be more likely to to be 01/03/2019. Mental Status examination time of discharge 01/03/2018 11:16 AM The patient presents alert, pleasant, and cooperative. There calmly seated without any agitated behavior. [She got] reports that [her] mood is good. Affect is congruent and euthymic. [She] deny having any suicidal or homicidal ideation intent or plan. [She] denies any auditory or visual hallucinations. There is no evidence of any delusional thought content. [Her] thought process is linear and goal-directed. [Her ] speech is fluent and nonpressured. [Her ] memory and concentration is grossly intact for the purposes of this session. Patient Condition at Discharge: Stable Plan - Discharge Summary Discharge Rx Participant: Yes New Discharge Prescriptions: New traZODone HCL [Desyrel] 100 mg PO 0 30 Days #30 tab Paliperidone [Invega] 6 mg PO 2099 30 Days #30 tab.er.24 lamoTRIgine [LaMICtal] 50 mg PO 2099 30 Days #30 tab Gabapentin [Neurontin] 300 mg PO TID 30 Days #90 cap Naltrexone HCl [Revia] 50 mg PO 2100 30 Days #30 tab Continue Folic Acid 1 mg PO DAILY@1200 tab Thiamine [Vitamin B-1] 100 mg PO BID-W/MEALS tab Discontinued chlordiazePOXIDE HCl [Librium] 10 mg PO TID cap Multivitamins, Thera [Multivitamin (formulary)] 1 each PO DAILY tab Discharge Medication List Folic Acid 1 mg PO DAILY@1200 tab 12/27/18 [Rx] Thiamine [Vitamin B-1] 100 mg PO BID-W/MEALS tab 12/27/18 [Rx] Gabapentin [Neurontin] 300 mg PO TID 30 Days #90 cap 01/03/19 [Rx] Naltrexone HCl [Revia] 50 mg PO 2099 30 Days #30 tab 01/03/19 [Rx] Paliperidone [Invega] 6 mg PO 2099 30 Days #30 tab.er.24 01/03/19 [Rx] lamoTRIgine [LaMICtal] 50 mg PO 2099 30 Days #30 tab 01/03/19 [Rx] traZODone HCL [Desyrel] 100 mg PO 0 30 Days #30 tab 01/03/19 [Rx] Activity/Diet/Wound Care/Special Instructions: Activity and diet as tolerated. No guns or weapons in the home. Take all medications as prescribed and attend all follow up appointments as scheduled. Refrain from alcohol and street drugs not prescribed by your physician. If in need of of medication refills, please go to your primary care physician or to your outpatient psychiatric provider. If in crisis please call , or go to the nearest . Discharge Disposition: HOME SELF-CARE
== END 2019-01-03 12:42 | disposition home or self-care (01) | DRG 881 ==
LOC: 3MHU 16:33
PROVIDERS: ADMIT Psychiatry & Neurology Psychiatry; ATTEND Psychiatry & Neurology Psychiatry
DX: F32.9 Major depressive disorder, single episode, unspecified (principal); F10.239 Alcohol dependence with withdrawal, unspecified; G40.909 Epilepsy, unspecified, not intractable, without status epilepticus; T43.222A Poisoning by selective serotonin reuptake inhibitors, intentional self-harm, initial encounter; T42.6X2A Poisoning by other antiepileptic and sedative-hypnotic drugs, intentional self-harm, initial encounter; T39.1X2A Poisoning by 4-Aminophenol derivatives, intentional self-harm, initial encounter; F41.9 Anxiety disorder, unspecified; G47.00 Insomnia, unspecified; M16.0 Bilateral primary osteoarthritis of hip; F17.210 Nicotine dependence, cigarettes, uncomplicated; Z71.6 Tobacco abuse counseling; Z79.899 Other long term (current) drug therapy; Z87.442 Personal history of urinary calculi; Z90.49 Acquired absence of other specified parts of digestive tract; Z91.5 Personal history of self-harm; Z98.51 Tubal ligation status; Z98.82 Breast implant status; Z83.49 Family history of other endocrine, nutritional and metabolic diseases; Z81.1 Family history of alcohol abuse and dependence; Z82.5 Family history of asthma and other chronic lower respiratory diseases
CPT/HCPCS: 80053; 80061; 81001; 83036; 83735; 84443; 85025

== ENCOUNTER 2019-01-24 21:16 | Observation (INO) | payer OTHER ==
[2019-01-24] MEDS ORDERED: LORazepam 2 MG/ML INJ IV STA (21:37)
[2019-01-24] MEDS ORDERED: SODIUM CHLORIDE 0.9% 1,000 ML IV STA ×2 (21:37)
[2019-01-24] MEDS ORDERED: SODIUM CHLORIDE 0.9% 500 ML 500 ML IV STA (21:37)
[2019-01-24] MEDS ORDERED: THIAMINE 100 MG/ML 2 ML VIAL IVPB STA (21:37)
[2019-01-24] MEDS ORDERED: THIAMINE 100 MG/ML 2 ML VIAL IM STA (21:38)
[2019-01-24] MEDS ORDERED: LORazepam 2 MG/ML INJ IV PRN (21:38)
--- NOTE | 2019-01-24 21:39 | ED ---
Alcohol HPI - General Chief Complaint: Alcohol Stated Complaint: Detox Time Seen by Provider: 01/24/19 21:37 Source: patient, RN notes reviewed, old records reviewed Mode of arrival: ambulatory Limitations: no limitations - History of Present Illness Initial Comments: This is a 40-year-old female the ER for evaluation shortness a for evaluation regarding alcohol abuse. Patient states she is going through withdrawal. Has history of alcohol withdrawal severe and leading to seizures. Patient's very anxious and screaming denies homicidal suicidal thoughts admits to drinking prior to coming in the ER about a half-hour, states she started tried to the day did struggle through withdrawal bladder Drink anyway MD Complaint: alcohol intoxication, alcohol withdrawal, alcohol dependence, desires rehab Last Drink: just TOOL AND DIE REPAIR -: hour(s) Previous Visits for Alcohol Intoxication?: Yes Recent Trauma: No Associated Symptoms: nausea Treatments Prior to Arrival: none Chronic Alcohol Use: Yes - Related Data Home Medications Medication Instructions Recorded Confirmed Naltrexone HCl [Revia] 50 mg PO HS 01/24/19 01/24/19 Paliperidone [Invega] 6 mg PO HS 01/24/19 01/24/19 lamoTRIgine [LaMICtal] 25 mg PO HS 01/24/19 01/24/19 Allergies Allergy/AdvReac Type Severity Reaction Status Date / Time No Known Allergies Allergy Verified 01/24/19 21:40 Review of Systems ROS Statement: Those systems with pertinent positive or pertinent negative responses have been documented in the HPI. ROS Other: All systems not noted in ROS Statement are negative. Past Medical History Past Medical History: Seizure Disorder Additional Past Medical History / Comment(s): Alcoholism, alcohol withdrawal with seizures/insomnia/loss of appetite, arthritis bilateral hips, kidney stones History of Any Multi-Drug Resistant Organisms: None Reported Past Surgical History: Appendectomy, Hysterectomy, Tubal Ligation Additional Past Surgical History / Comment(s): Lithotripsy, ESS, bilateral breast implants. Past Anesthesia/Blood Transfusion Reactions: No Reported Reaction Past Psychological History: Anxiety, Depression Smoking Status: Current every day smoker Past Alcohol Use History: Abuse, Daily Past Drug Use History: None Reported - Past Family History Mother Additional Family Medical History / Comment(s): Mother is obese Father Family Medical History: COPD Additional Family Medical History / Comment(s): Father of alcoholism. General Exam Limitations: no limitations General appearance: alert, appears intoxicated, anxious Head exam: Present: atraumatic, normocephalic, normal inspection Eye exam: Present: normal appearance, PERRL, EOMI. Absent: scleral icterus, conjunctival injection, periorbital swelling ENT exam: Present: normal exam, mucous membranes moist Neck exam: Present: normal inspection. Absent: tenderness, meningismus, lymphadenopathy Respiratory exam: Present: normal lung sounds bilaterally. Absent: respiratory distress, wheezes, rales, rhonchi, stridor Cardiovascular Exam: Present: normal rhythm, tachycardia, normal heart sounds. Absent: systolic murmur, diastolic murmur, rubs, gallop, clicks GI/Abdominal exam: Present: soft, normal bowel sounds. Absent: distended, tenderness, guarding, rebound, rigid Extremities exam: Present: normal inspection, full ROM, normal capillary refill. Absent: tenderness, pedal edema, joint swelling, calf tenderness Back exam: Present: normal inspection Neurological exam: Present: alert, oriented X3, CN II-XII intact Psychiatric exam: Present: normal affect, normal mood Skin exam: Present: warm, dry, intact, normal color. Absent: rash Course Vital Signs 01/24/19 01/24/19 21:18 23:36 Temperature 99.0 F 97.5 F L Pulse Rate 129 H 110 H Respiratory 18 16 Rate Blood Pressure 152/87 107/72 O2 Sat by Pulse 96 97 Oximetry - Reevaluation(s) Reevaluation #1: 01/24/19 23:43 Medical record is reviewed Reevaluation #2: 01/24/19 23:43 Patient has no real improvement in symptoms currently Medical Decision Making - Medical Decision Making 48 female the ER for evaluation. Patient does say for evaluation regarding alcohol intoxication and impending DTs. We'll admit for current care - Lab Data Result diagrams: 01/24/19 22:22 01/24/19 22:22 Lab Results 01/24/19 01/24/19 Range/Units 22:22 22:22 WBC 8.9 (3.8-10.6) k/uL RBC 4.20 (3.80-5.40) m/uL Hgb 12.2 (11.4-16.0) gm/dL Hct 36.1 (34.0-46.0) % MCV 85.9 (80.0-100.0) fL MCH 29.1 (25.0-35.0) pg MCHC 33.9 (31.0-37.0) g/dL RDW 15.4 (11.5-15.5) % Plt Count 142 L (150-450) k/uL Neutrophils % 67 % Lymphocytes % 27 % Monocytes % 3 % Eosinophils % 1 % Basophils % 0 % Neutrophils # 6.0 (1.3-7.7) k/uL Lymphocytes # 2.4 (1.0-4.8) k/uL Monocytes # 0.3 (0-1.0) k/uL Eosinophils # 0.1 (0-0.7) k/uL Basophils # 0.0 (0-0.2) k/uL Sodium 140 (137-145) mmol/L Potassium 3.4 L (3.5-5.1) mmol/L Chloride 106 (98-107) mmol/L Carbon Dioxide 23 (22-30) mmol/L Anion Gap 11 mmol/L BUN 8 (7-17) mg/dL Creatinine 0.51 L (0.52-1.04) mg/dL Est GFR (CKD-EPI)AfAm >90 (>60 ml/min/1.73 sqM) Est GFR (CKD-EPI)NonAf >90 (>60 ml/min/1.73 sqM) Glucose 112 H (74-99) mg/dL Calcium 8.6 (8.4-10.2) mg/dL Phosphorus 3.8 (2.5-4.5) mg/dL Magnesium 1.4 L (1.6-2.3) mg/dL Total Bilirubin 0.2 (0.2-1.3) mg/dL AST 35 (14-36) U/L ALT 18 (9-52) U/L Alkaline Phosphatase 72 (38-126) U/L Total Protein 6.5 (6.3-8.2) g/dL Albumin 3.8 (3.5-5.0) g/dL Lipase 81 (23-300) U/L Serum Alcohol 281 H* mg/dL Disposition Clinical Impression: Drug overdose, intentional, Altered mental status, Suicide attempt, Alcohol abuse Disposition: ADMITTED IP TO THIS HOSP Condition: Fair Is patient prescribed a controlled substance at d/c from ED?: No Referrals: None,Stated [Primary Care Provider] - 1-2 days
[2019-01-24 22:31] LABS: Basophils % (A) 0 %; Eosinophils # (A) 0.1 k/uL (0-0.7); Eosinophils % (A) 1 %; HCT 36.1 % (34.0-46.0); HGB 12.2 gm/dL (11.4-16.0); Lymphocytes # (A) 2.4 k/uL (1.0-4.8); Lymphocytes % (A) 27 %; MCH 29.1 pg (25.0-35.0); MCHC 33.9 g/dL (31.0-37.0); MCV 85.9 fL (80.0-100.0); Mean Platelet Volume 7.8; Monocytes # (A) 0.3 k/uL (0-1.0); Monocytes % (A) 3 %; Neutrophils % (A) 67 %; Platelet Count 142 k/uL (150-450); RDW 15.4 % (11.5-15.5); WBC 8.9 k/uL (3.8-10.6)
[2019-01-24 22:40] LABS: ALT 18 U/L (9-52); AST 35 U/L (14-36); African American GFR (CKD) >90 (>60 ml/min/1.73 sqM); Albumin 3.8 g/dL (3.5-5.0); Alkaline Phosphatase 72 U/L (38-126); Anion Gap 11 mmol/L; Blood Urea Nitrogen 8 mg/dL (7-17); Calcium 8.6 mg/dL (8.4-10.2); Carbon Dioxide 23 mmol/L (22-30); Chloride 106 mmol/L (98-107); Glucose 112 mg/dL (74-99); Lipase 81 U/L (23-300); Magnesium 1.4 mg/dL (1.6-2.3); Phosphorus 3.8 mg/dL (2.5-4.5); Potassium 3.4 mmol/L (3.5-5.1); Sodium 140 mmol/L (137-145); Total Bilirubin 0.2 mg/dL (0.2-1.3); Total Protein 6.5 g/dL (6.3-8.2)
[2019-01-24 22:45] LABS: Alcohol 281 mg/dL
[2019-01-24] MEDS ORDERED: THIAMINE 100 MG in SODIUM CHLORIDE 0.9% 50 ML IVPB ONE (23:30)
[2019-01-24] MEDS: LORazepam 2 MG/ML INJ IV PRN (23:58)
[2019-01-25] MEDS: THIAMINE 100 MG TAB PO SCH ×3 (01:24→19:41)
[2019-01-25] MEDS ORDERED: POTASSIUM CHLORIDE ER 20 MEQ TAB.ER PO STA (02:09)
--- NOTE | 2019-01-25 02:11 | P.HPIM ---
History of Present Illness H&P Date: 01/25/19 The patient is a 48-year-old female with a past medical history of depression with attempted suicide, alcohol abuse with alcohol withdrawal seizures, anxiety, and tobacco abuse presented to the ED with alcohol intoxication. The patient notes that she previously had an alcohol withdrawal seizure 2 years ago and was told at that time that she should not detox unsupervised. She notes that her last drink was earlier today, and she normally drinks 1 pint of vodka daily. She reports that she is had on and off bouts of drinking and her current relapse was due to trouble with her boyfriend. At time of the interview, she reported feeling tremulous and getting the "shakes". She otherwise denied suicidal ideation, chest pain, shortness of breath, abdominal pain, nausea, or vomiting. She further denied fever, chills, or diarrhea. She underwent an extensive evaluation in the ED with alcohol level 281, potassium 3.4, magnesium 1.4, creatinine 0.51, and platelets 142. She is being admitted to the medicine service for alcohol intoxication and impending withdrawal. Review of Systems Pertinent positives and negatives as discussed in HPI, a complete review of systems was performed and all other systems are negative. Past Medical History Past Medical History: Seizure Disorder Additional Past Medical History / Comment(s): Alcoholism, alcohol withdrawal with seizures/insomnia/loss of appetite, arthritis bilateral hips, kidney stones History of Any Multi-Drug Resistant Organisms: None Reported Past Surgical History: Appendectomy, Hysterectomy, Tubal Ligation Additional Past Surgical History / Comment(s): Lithotripsy, ESS, bilateral breast implants. Past Anesthesia/Blood Transfusion Reactions: No Reported Reaction Smoking Status: Current every day smoker - Past Family History Mother Additional Family Medical History / Comment(s): Mother is obese Father Family Medical History: COPD Additional Family Medical History / Comment(s): Father of alcoholism. Medications and Allergies Home Medications Medication Instructions Recorded Confirmed Type Naltrexone HCl [Revia] 50 mg PO HS 01/24/19 01/25/19 History Paliperidone [Invega] 6 mg PO HS 01/24/19 01/25/19 History lamoTRIgine [LaMICtal] 25 mg PO HS 01/24/19 01/25/19 History Allergies Allergy/AdvReac Type Severity Reaction Status Date / Time No Known Allergies Allergy Verified 01/25/19 00:51 Physical Exam Vitals: Vital Signs Temp Pulse Pulse Resp BP BP Pulse Ox 01/25/19 00:44 98.0 F 102 H 15 137/89 98 01/24/19 23:36 97.5 F L 110 H 16 107/72 97 01/24/19 21:18 99.0 F 129 H 18 152/87 96 Intake and Output 01/24/19 01/24/19 01/25/19 14:59 22:59 06:59 Other: Voiding Method Toilet Weight 66.542 kg General: non toxic, no distress, mildly tremulous, appears older than stated age, normal weight Derm: no unusual rashes/lesions no unusual ecchymoses, warm, dry Head: atraumatic, normocephalic, symmetric Eyes: EOMI, no lid lag, anicteric sclera, pupils equal round reactive to light ENT: Nose and ears atraumatic, no thrush, no pharyngeal erythema Neck: No thyromegaly, no cervical lymphadenopathy, trachea midline, supple Mouth: no lip lesion, mucus membranes moist Cardiovascular: S1S2 reg, no murmur, positive posterior tibial pulse bilateral, no edema, capillary refill less than 2 seconds Lungs: CTA bilateral, no rhonchi, no rales , no accessory muscle use Abdominal: soft, nontender to palpation, no guarding, no appreciable organomegaly, normal bowel sounds Ext: no gross muscle atrophy, muscle strength 5 out of 5 in all 4 extremities grossly, no contractures, Neuro: CN II-XI grossly intact, light touch intact all 4 extremities, finger to nose within normal limits, outstretched hand tremor, and situations Psych: Alert, oriented, appropriate affect Results CBC & Chem 7: 01/24/19 22:22 01/24/19 22:22 Labs: Abnormal Lab Results - Last 24 Hours (Table) 01/24/19 01/24/19 Range/Units 22:22 22:22 Plt Count 142 L (150-450) k/uL Potassium 3.4 L (3.5-5.1) mmol/L Creatinine 0.51 L (0.52-1.04) mg/dL Glucose 112 H (74-99) mg/dL Magnesium 1.4 L (1.6-2.3) mg/dL Serum Alcohol 281 H* mg/dL Thrombosis Risk Factor Assmnt - Choose All That Apply Any of the Below Risk Factors Present?: Yes Each Factor Represents 1 point: Age 41-60 years Other Risk Factors: No Other congenital or acquired thrombophilia - If yes, enter type in comment: No Thrombosis Risk Factor Assessment Total Risk Factor Score: 1 Thrombosis Risk Factor Assessment Level: Low Risk Assessment and Plan Plan: Alcohol intoxication, impending withdrawal -CIWA protocol with Ativan -Monitor electrolytes and replace accordingly -Thiamine, folate, multivitamin -Aspiration, fall, seizure precautions -Cardiac monitoring Hypokalemia, hypomagnesemia -Replace and monitor Thrombocytopenia -Secondary to alcohol abuse -Advised patient on importance of cessation DVT prophylaxis -IPCD's The patient is admitted with an anticipated less than 2 midnight stay for evaluation of alcohol intoxication and impending withdrawal. CODE STATUS: Full code Discussed with: Patient Anticipated discharge date: 01/26/[address]: Home A total of 35 minutes was spent on the care of this complex patient more than 50% of the time was spent in counseling and care coordination.
[2019-01-25] MEDS: MAGNESIUM SULFATE-D5W PMX 1 GM in DEXTROSE/WATER 1 100ML.BAG IVPB SCH ×3 (02:38→05:39)
[2019-01-25] MEDS: LORazepam 2 MG/ML INJ IV PRN ×6 (02:41→19:41)
[2019-01-25 06:00] LABS: Amphetamine Screen,Urine Not Detected (NotDetected); Barbiturate Screen,Urine Not Detected (NotDetected); Benzodiazepines Screen,Urine Detected (NotDetected); Cocaine Screen,Urine Not Detected (NotDetected); Methadone Screen, Urine Not Detected (NotDetected); Opiate Screen,Urine Not Detected (NotDetected); Oxycodone Screen, Urine Not Detected (NotDetected); Phencyclidine Screen,Urine Not Detected (NotDetected); Tricyclic Antidepressant,Urine Not Detected (NotDetected); Urn Cannabinoid Scrn Not Detected (NotDetected)
[2019-01-25] MEDS ORDERED: FOLIC ACID 1 MG TAB PO SCH (09:00)
[2019-01-25] MEDS ORDERED: MULTIVITAMINS, THERA 1 EACH TAB PO SCH (09:00)
[2019-01-25 10:12] LABS: HCT 35.8 % (34.0-46.0); HGB 11.8 gm/dL (11.4-16.0); MCH 29.7 pg (25.0-35.0); MCV 89.8 fL (80.0-100.0); Mean Platelet Volume 7.9; Platelet Count 139 k/uL (150-450); RBC 3.98 m/uL (3.80-5.40); RDW 15.2 % (11.5-15.5); WBC 9.3 k/uL (3.8-10.6)
[2019-01-25 10:30] LABS: ALT 22 U/L (9-52); AST 31 U/L (14-36); African American GFR (CKD) >90 (>60 ml/min/1.73 sqM); Albumin 3.6 g/dL (3.5-5.0); Alkaline Phosphatase 75 U/L (38-126); Anion Gap 7 mmol/L; Blood Urea Nitrogen 8 mg/dL (7-17); Calcium 8.1 mg/dL (8.4-10.2); Carbon Dioxide 24 mmol/L (22-30); Chloride 104 mmol/L (98-107); Glucose 94 mg/dL (74-99); Magnesium 1.7 mg/dL (1.6-2.3); Potassium 4.1 mmol/L (3.5-5.1); Sodium 135 mmol/L (137-145); Total Bilirubin 0.4 mg/dL (0.2-1.3); Total Protein 6.3 g/dL (6.3-8.2)
--- NOTE | 2019-01-25 17:30 | P.PN ---
Progress Note - Text Progress Note Date: 01/25/19 Briefly this is a 48-year-old female with a history of suicide depression and alcohol withdrawal seizure indicated with acute alcohol intoxication with concern for impending DTs, patient is currently on CIWA symptom triggered protocol, has been receiving normal saline thiamine folate and multivitamin. Patient appears tremulous Current her blood pressure is elevated, continue monitoring for alcohol withdrawals, her electrolytes have been corrected we'll recheck alcohol level tomorrow
[2019-01-25] MEDS ORDERED: PALIPERIDONE 6 MG TAB.ER.24 PO SCH (21:00)
[2019-01-25] MEDS ORDERED: lamoTRIgine 25 MG TAB PO SCH (21:00)
[2019-01-26] MEDS: LORazepam 2 MG/ML INJ IV PRN (04:23)
[2019-01-26 06:33] LABS: Appearance,Urine Clear (Clear); Bilirubin,Urine Negative (Negative); Blood,Urine Negative (Negative); Color,Urine Light Yellow; Glucose,Urine (UA) Negative (Negative); Ketones,Urine Negative (Negative); Leukocyte Esterase,Urine Large (Negative); Mucus,Urine Rare /hpf; Nitrite,Urine Negative (Negative); PH, Urine 6.5 (5.0-8.0); Protein,Urine Negative (Negative); RBC,Urine 6 /hpf (0-5); Specific Gravity,Urine 1.004 (1.001-1.035); Squamous Epithelial Cell,Urine 4 /hpf (0-4); Urobilinogen,Urine <2.0 mg/dL (<2.0); WBC,Urine 15 /hpf (0-5)
[2019-01-26 07:49] VITALS: BP 161/83; PULSE 92; RESP 18; TEMP 97.7
--- NOTE | 2019-01-26 09:19 | P.DS ---
Providers Date of admission: 01/24/19 23:42 Expected date of discharge: 01/26/19 Attending physician: Emily Caldwell MD Primary care physician: Stated None Hospital Course: Discharge Diagnosis: 1. Alcohol intoxication with impending delirium tremens 2. Hypokalemia 3. Hypomagnesemia 4. History of depression 5. Thrombocytopenia, chronic, likely alcohol-related 6. Alcoholism 7. Tobacco abuse Hospital Course: Patient is a 48-year-old female with a past medical history of seizures secondary to alcohol withdrawal, chronic alcoholism, and thrombocytopenia who presented to the ER with complaints of alcohol intoxication and wanting to detox. In the ER she underwent an extensive evaluation. Her initial vital signs were within normal limits. Initial laboratory analysis from alcohol level of 281, slight hypokalemia with a potassium of 3.2, slightly low magnesium at 1.4, and thrombocytopenia with platelets of 142, chronic for patient. She was admitted as for further monitoring of possible alcohol withdrawal. She required several doses of IV Ativan. The frequency of IV Ativan decreased throughout the day on 01/25. By the morning of 01/26 she was asked to be discharged as she felt her alcohol withdrawal was well controlled. She has had 3 hospitalizations relating to alcohol and substance abuse as well as depression over the last 6 weeks. She is currently enrolled in and plans on attending a meeting [facility]. She is also following up with [facility] for her depression. She denies any suicidal ideation. She is alert and oriented 4. She will also follow the [facility] for medical management. We discussed the risks of leaving and she felt her withdrawal was not treated or that her depression is untreated, she is aware of the potential for overdose leading to . She adamantly denies any feelings of doing this again, and states that she will never do this again. Her drinking was triggered by her boyfriend which she has since broken up with. She feels as though she will be able to abstain from alcohol with AA and her current medication regimen. Patient seen and examined at bedside. Denies any nausea, vomiting, tremors greatly improved, feeling well. Wants to be discharged home. States she has a roommate will help her abstain from alcohol. Vital signs reviewed and stable. General: non toxic, no distress, appears at stated age Derm: warm, dry Head: atraumatic, normocephalic, symmetric Eyes: EOMI, no lid lag, anicteric sclera Mouth: no lip lesion, mucus membranes moist Cardiovascular: S1S2 reg, no murmur, positive posterior tibial pulse bilateral, Lungs: CTA bilateral, no rhonchi, no rales , no accessory muscle use Abdominal: soft, nontender to palpation, no guarding, no appreciable org anomegaly Ext: no gross muscle atrophy, no edema, no contractures Neuro: CN II-XI grossly intact, no focal neuro deficits Psych: Alert, oriented, appropriate affect A total of 25 minutes of time were spent preparing this complex discharge summary . Patient Condition at Discharge: Fair Plan - Discharge Summary Discharge Rx Participant: No New Discharge Prescriptions: No Action lamoTRIgine [LaMICtal] 25 mg PO HS Naltrexone HCl [Revia] 50 mg PO HS Paliperidone [Invega] 6 mg PO HS Discharge Medication List Naltrexone HCl [Revia] 50 mg PO HS 01/24/19 [History] Paliperidone [Invega] 6 mg PO HS 01/24/19 [History] lamoTRIgine [LaMICtal] 25 mg PO HS 01/24/19 [History] Follow up Appointment(s)/Referral(s): None,Stated [Primary Care Provider] - 1-2 days
== END 2019-01-26 09:15 | disposition home or self-care (01) ==
LOC: EC 21:16 → 1SOBS 23:42
PROVIDERS: ADMIT Internal Medicine; ATTEND Internal Medicine
DX: F10.229 Alcohol dependence with intoxication, unspecified (principal); E87.6 Hypokalemia; E83.42 Hypomagnesemia; D69.6 Thrombocytopenia, unspecified; G40.909 Epilepsy, unspecified, not intractable, without status epilepticus; R03.0 Elevated blood-pressure reading, without diagnosis of hypertension; F32.9 Major depressive disorder, single episode, unspecified; F41.9 Anxiety disorder, unspecified; R63.0 Anorexia; M16.0 Bilateral primary osteoarthritis of hip; G47.00 Insomnia, unspecified; F17.200 Nicotine dependence, unspecified, uncomplicated; Y90.8 Blood alcohol level of 240 mg/100 ml or more; Z79.899 Other long term (current) drug therapy; Z98.82 Breast implant status; Z90.710 Acquired absence of both cervix and uterus; Z86.59 Personal history of other mental and behavioral disorders; Z87.442 Personal history of urinary calculi; Z91.5 Personal history of self-harm; Z82.5 Family history of asthma and other chronic lower respiratory diseases; Z81.1 Family history of alcohol abuse and dependence; Z83.49 Family history of other endocrine, nutritional and metabolic diseases
CPT/HCPCS: 96365; 96366; 96376 ×3; 96375; 99285; 36415; 80053 ×2; 83690; 83735 ×2; 84100; 85025; 85027; 81001; 80306; G0378 ×3; G0480; J2060 ×3; J3411; J3475; 80320

== ENCOUNTER 2019-02-28 16:00 | Emergency (ER) | payer OTHER ==
[2019-02-28 16:52] VITALS: TEMP 97.6
[2019-02-28] MEDS ORDERED: SODIUM CHLORIDE 0.9% 1,000 ML IV STA (18:16)
--- NOTE | 2019-02-28 18:25 | ED ---
General Adult HPI - General Chief complaint: Alcohol Stated complaint: detoxing from alcohol Time Seen by Provider: 02/28/19 18:08 Source: patient, RN notes reviewed Mode of arrival: ambulatory Limitations: no limitations - History of Present Illness Initial comments: Amy is a 49-year-old female with a past medical history of alcoholism, alcohol withdrawal, who presents to the emergency department for a chief complaint of alcohol. Patient states that she was sober for a few months but that over the past 5-6 days she has started drinking again. Patient states she is drinking "constantly." States that she became an alcoholic about 5 years ago and has not had problems prior to this. States that she is trying to detox at home but cannot do it and keeps taking sips of alcohol. States that she starts to shake really bad when she detoxes. Denies any other complaints.she denies any suicidal thoughts or any thoughts of harming herself or anyone else. Patient has no other complaints at this time including shortness of breath, chest pain, abdominal pain, nausea or vomiting, headache, or visual changes. - Related Data Home Medications Medication Instructions Recorded Confirmed Naltrexone HCl [Revia] 50 mg PO HS 01/24/19 02/28/19 Paliperidone [Invega] 6 mg PO HS 01/24/19 02/28/19 lamoTRIgine [LaMICtal] 25 mg PO HS 01/24/19 02/28/19 Previous Rx's Medication Instructions Recorded Cephalexin [Keflex] 500 mg PO Q6HR 7 Days cap 02/28/19 Allergies Allergy/AdvReac Type Severity Reaction Status Date / Time No Known Allergies Allergy Verified 02/28/19 17:58 Review of Systems ROS Statement: Those systems with pertinent positive or pertinent negative responses have been documented in the HPI. ROS Other: All systems not noted in ROS Statement are negative. Past Medical History Past Medical History: Seizure Disorder Additional Past Medical History / Comment(s): Alcoholism, alcohol withdrawal with seizures/insomnia/loss of appetite, arthritis bilateral hips, kidney stones History of Any Multi-Drug Resistant Organisms: None Reported Past Surgical History: Appendectomy, Hysterectomy, Tubal Ligation Additional Past Surgical History / Comment(s): Lithotripsy, ESS, bilateral breast implants. Past Anesthesia/Blood Transfusion Reactions: No Reported Reaction Past Psychological History: Anxiety, Depression Smoking Status: Current every day smoker Past Alcohol Use History: Abuse, Daily, Heavy Past Drug Use History: None Reported - Past Family History Mother Additional Family Medical History / Comment(s): Mother is obese Father Family Medical History: COPD Additional Family Medical History / Comment(s): Father of alcoholism. General Exam Limitations: no limitations General appearance: alert, in no apparent distress Head exam: Present: atraumatic, normocephalic, normal inspection Eye exam: Present: normal appearance, PERRL, EOMI. Absent: scleral icterus, conjunctival injection, periorbital swelling ENT exam: Present: normal exam, mucous membranes moist Neck exam: Present: normal inspection, full ROM. Absent: tenderness, meningismus, lymphadenopathy Respiratory exam: Present: normal lung sounds bilaterally. Absent: respiratory distress, wheezes, rales, rhonchi, stridor Cardiovascular Exam: Present: regular rate, normal rhythm, normal heart sounds. Absent: systolic murmur, diastolic murmur, rubs, gallop, clicks GI/Abdominal exam: Present: soft, normal bowel sounds. Absent: distended, tenderness, guarding, rebound, rigid Neurological exam: Present: alert, oriented X3, CN II-XII intact Psychiatric exam: Present: normal affect, normal mood. Absent: homicidal id eation, suicidal ideation (denies any thoughts of harming herself) Course Vital Signs 02/28/19 16:48 Temperature 97.6 F Pulse Rate 103 H Respiratory 18 Rate Blood Pressure 156/97 O2 Sat by Pulse 96 Oximetry Medical Decision Making - Medical Decision Making Amy is a 49-year-old female with past medical history of alcohol abuse disorder who presents for alcohol detox. States she is trying to detox at home. Denies any other complaints. Patient is well appearing, lying in bed. CBC is unremarkable. CMP shows a very mild transaminitis likely secondary to alcohol abuse. Urine does show greater than 182 white blood cells. No CVA tenderness. Patient has urinary tract infection, given Rocephin. Patient's heart rate of 103 likely secondary to alcohol intoxication. Discussed with patient that she has been admitted several times for this complaint and given normal labs, cannot be admitted for Detox. will be given valium prior to DC. Patient clinically sober, will get a ride home from her roommate. Discussed returning if she has any worsening symptoms. Discussed case with Dr Simpson. - Lab Data Result diagrams: 02/28/19 18:30 02/28/19 18:30 Lab Results 02/28/19 02/28/19 02/28/19 Range/Units 18:30 18:30 18:30 WBC 5.9 (3.8-10.6) k/uL RBC 4.86 (3.80-5.40) m/uL Hgb 14.3 (11.4-16.0) gm/dL Hct 43.7 (34.0-46.0) % MCV 90.0 (80.0-100.0) fL MCH 29.4 (25.0-35.0) pg MCHC 32.6 (31.0-37.0) g/dL RDW 14.5 (11.5-15.5) % Plt Count 141 L (150-450) k/uL Neutrophils % 60 % Lymphocytes % 32 % Monocytes % 4 % Eosinophils % 1 % Basophils % 1 % Neutrophils # 3.6 (1.3-7.7) k/uL Lymphocytes # 1.9 (1.0-4.8) k/uL Monocytes # 0.2 (0-1.0) k/uL Eosinophils # 0.1 (0-0.7) k/uL Basophils # 0.0 (0-0.2) k/uL PT 10.4 (9.0-12.0) sec INR 1.0 (<1.2) Sodium 145 (137-145) mmol/L Potassium 3.6 (3.5-5.1) mmol/L Chloride 108 H (98-107) mmol/L Carbon Dioxide 23 (22-30) mmol/L Anion Gap 14 mmol/L BUN 6 L (7-17) mg/dL Creatinine 0.56 (0.52-1.04) mg/dL Est GFR (CKD-EPI)AfAm >90 (>60 ml/min/1.73 sqM) Est GFR (CKD-EPI)NonAf >90 (>60 ml/min/1.73 sqM) Glucose 145 H (74-99) mg/dL Calcium 8.7 (8.4-10.2) mg/dL Magnesium 1.7 (1.6-2.3) mg/dL Total Bilirubin 0.3 (0.2-1.3) mg/dL AST 42 H (14-36) U/L ALT 24 (9-52) U/L Alkaline Phosphatase 72 (38-126) U/L Total Protein 7.2 (6.3-8.2) g/dL Albumin 4.3 (3.5-5.0) g/dL Amylase 36 (30-110) U/L Lipase 89 (23-300) U/L Urine Color Urine Appearance (Clear) Urine pH (5.0-8.0) Ur Specific [place] (1.001-1.035) Urine Protein (Negative) Urine Glucose (UA) (Negative) Urine Ketones (Negative) Urine Blood (Negative) Urine Nitrite (Negative) Urine Bilirubin (Negative) Urine Urobilinogen (<2.0) mg/dL Ur Leukocyte Esterase (Negative) Urine RBC (0-5) /hpf Urine WBC (0-5) /hpf Urine WBC Clumps (None) /hpf Ur Squamous Epith Cells (0-4) /hpf Amorphous Sediment (None) /hpf Urine Bacteria (None) /hpf Hyaline Casts (0-2) /lpf Urine Mucus (None) /hpf Urine HCG, Qual (Not Detectd) Serum Alcohol 353 H* mg/dL 02/28/19 02/28/19 Range/Units 18:30 18:30 WBC (3.8-10.6) k/uL RBC (3.80-5.40) m/uL Hgb (11.4-16.0) gm/dL Hct (34.0-46.0) % MCV (80.0-100.0) fL MCH (25.0-35.0) pg MCHC (31.0-37.0) g/dL RDW (11.5-15.5) % Plt Count (150-450) k/uL Neutrophils % % Lymphocytes % % Monocytes % % Eosinophils % % Basophils % % Neutrophils # (1.3-7.7) k/uL Lymphocytes # (1.0-4.8) k/uL Monocytes # (0-1.0) k/uL Eosinophils # (0-0.7) k/uL Basophils # (0-0.2) k/uL PT (9.0-12.0) sec INR (<1.2) Sodium (137-145) mmol/L Potassium (3.5-5.1) mmol/L Chloride (98-107) mmol/L Carbon Dioxide (22-30) mmol/L Anion Gap mmol/L BUN (7-17) mg/dL Creatinine (0.52-1.04) mg/dL Est GFR (CKD-EPI)AfAm (>60 ml/min/1.73 sqM) Est GFR (CKD-EPI)NonAf (>60 ml/min/1.73 sqM) Glucose (74-99) mg/dL Calcium (8.4-10.2) mg/dL Magnesium (1.6-2.3) mg/dL Total Bilirubin (0.2-1.3) mg/dL AST (14-36) U/L ALT (9-52) U/L Alkaline Phosphatase (38-126) U/L Total Protein (6.3-8.2) g/dL Albumin (3.5-5.0) g/dL Amylase (30-110) U/L Lipase (23-300) U/L Urine Color Light Yellow Urine Appearance Cloudy H (Clear) Urine pH 5.5 (5.0-8.0) Ur Specific [place] 1.005 (1.001-1.035) Urine Protein Negative (Negative) Urine Glucose (UA) Negative (Negative) Urine Ketones Negative (Negative) Urine Blood Trace H (Negative) Urine Nitrite Negative (Negative) Urine Bilirubin Negative (Negative) Urine Urobilinogen <2.0 (<2.0) mg/dL Ur Leukocyte Esterase Large H (Negative) Urine RBC 4 (0-5) /hpf Urine WBC >182 H (0-5) /hpf Urine WBC Clumps Many H (None) /hpf Ur Squamous Epith Cells 15 H (0-4) /hpf Amorphous Sediment Occasional H (None) /hpf Urine Bacteria Moderate H (None) /hpf Hyaline Casts 1 (0-2) /lpf Urine Mucus Rare H (None) /hpf Urine HCG, Qual Not Detected (Not Detectd) Serum Alcohol mg/dL Disposition Clinical Impression: Alcoholic intoxication, Urinary tract infection Disposition: HOME SELF-CARE Condition: Good Instructions (If sedation given, give patient instructions): Alcohol Withdrawal (ED), Urinary Tract Infection in Women (ED) Additional Instructions: Please take antibiotic as directed. Follow up with primary care in 1-2 days. Return here to the emergency department if you have any worsening symptoms. Prescriptions: Cephalexin [Keflex] 500 mg PO Q6HR 7 Days cap Is patient prescribed a controlled substance at d/c from ED?: No Referrals: Wan Wyatt MD [REFERRING] - 1-2 days [facility] [NON-STAFF] - 1-2 days Time of Disposition: 19:49
[2019-02-28 18:44] LABS: Basophils % (A) 1 %; Eosinophils # (A) 0.1 k/uL (0-0.7); Eosinophils % (A) 1 %; HCT 43.7 % (34.0-46.0); HGB 14.3 gm/dL (11.4-16.0); Lymphocytes # (A) 1.9 k/uL (1.0-4.8); Lymphocytes % (A) 32 %; MCH 29.4 pg (25.0-35.0); MCHC 32.6 g/dL (31.0-37.0); Mean Platelet Volume 7.6; Monocytes # (A) 0.2 k/uL (0-1.0); Monocytes % (A) 4 %; Neutrophils # (A) 3.6 k/uL (1.3-7.7); Neutrophils % (A) 60 %; Platelet Count 141 k/uL (150-450); RBC 4.86 m/uL (3.80-5.40); RDW 14.5 % (11.5-15.5); WBC 5.9 k/uL (3.8-10.6)
[2019-02-28 18:49] LABS: Amorphous Sediment,Urine Occasional /hpf; Appearance,Urine Cloudy (Clear); Bacteria,Urine Moderate /hpf; Bilirubin,Urine Negative (Negative); Blood,Urine Trace (Negative); Color,Urine Light Yellow; Glucose,Urine (UA) Negative (Negative); Hyaline Casts,Urine 1 /lpf (0-2); Ketones,Urine Negative (Negative); Leukocyte Esterase,Urine Large (Negative); Mucus,Urine Rare /hpf; Nitrite,Urine Negative (Negative); PH, Urine 5.5 (5.0-8.0); Protein,Urine Negative (Negative); Prothrombin Time 10.4 sec (9.0-12.0); RBC,Urine 4 /hpf (0-5); Specific Gravity,Urine 1.005 (1.001-1.035); Squamous Epithelial Cell,Urine 15 /hpf (0-4); Urobilinogen,Urine <2.0 mg/dL (<2.0); WBC,Urine >182 /hpf (0-5)
[2019-02-28 18:53] LABS: ALT 24 U/L (9-52); AST 42 U/L (14-36); African American GFR (CKD) >90 (>60 ml/min/1.73 sqM); Albumin 4.3 g/dL (3.5-5.0); Alkaline Phosphatase 72 U/L (38-126); Amylase 36 U/L (30-110); Anion Gap 14 mmol/L; Blood Urea Nitrogen 6 mg/dL (7-17); Calcium 8.7 mg/dL (8.4-10.2); Carbon Dioxide 23 mmol/L (22-30); Chloride 108 mmol/L (98-107); Glucose 145 mg/dL (74-99); Magnesium 1.7 mg/dL (1.6-2.3); Potassium 3.6 mmol/L (3.5-5.1); Sodium 145 mmol/L (137-145); Total Bilirubin 0.3 mg/dL (0.2-1.3); Total Protein 7.2 g/dL (6.3-8.2)
[2019-02-28 19:02] LABS: Alcohol 353 mg/dL
[2019-02-28] MEDS ORDERED: cefTRIAXone IN SWFI 1,000 MG/10 ML SYRINGE IVP STA (19:18)
[2019-02-28] MEDS ORDERED: LORazepam 2 MG/ML INJ IV STA (19:21)
[2019-02-28] MEDS ORDERED: DIAZEPAM 5 MG/ML 2 ML INJ IVP STA (19:29)
[2019-02-28] MEDS ORDERED: CEPHALEXIN 500MG STARTER PACK 4 CAP BTL PO STA (19:55)
[2019-02-28 20:51] VITALS: BP 174/98; PULSE 99; RESP 19
== END 2019-02-28 20:50 | disposition home or self-care (01) ==
LOC: EC 16:00
DX: F10.129 Alcohol abuse with intoxication, unspecified (principal); N39.0 Urinary tract infection, site not specified; R74.0 Nonspecific elevation of levels of transaminase and lactic acid dehydrogenase [LDH]; G40.909 Epilepsy, unspecified, not intractable, without status epilepticus; F41.9 Anxiety disorder, unspecified; F32.9 Major depressive disorder, single episode, unspecified; F17.200 Nicotine dependence, unspecified, uncomplicated; Z79.899 Other long term (current) drug therapy
CPT/HCPCS: 99284; 96374; 96375; 96361; 36415; 80053; 82150; 83690; 83735; 85025; 85610; 81001; 81025; 87086; G0480; J3360; J0696; 80320